=== PATIENT | female | born 1970 | race Caucasian/White ===

== ENCOUNTER → 2023-04-15 15:08 | Outpatient (REF) | payer OTHER, SELFPAY | LOC: RAD 15:08 | PROVIDERS: ATTENDING PHYSICIAN Physician Assistant Medical; FAMILY PHYSICIAN Nurse Practitioner Adult Health | DX: R06.2 Wheezing (principal); R06.02 Shortness of breath | CPT/HCPCS: 71046 ==

== ENCOUNTER → 2023-05-04 13:48 | Outpatient (REF) | payer OTHER, SELFPAY | LOC: RAD 13:48 | PROVIDERS: ATTENDING PHYSICIAN Registered Nurse | DX: J45.51 Severe persistent asthma with (acute) exacerbation (principal); R50.9 Fever, unspecified | CPT/HCPCS: 71046 ==

== ENCOUNTER 2023-05-06 19:57 | Inpatient (IN) | payer OTHER, SELFPAY ==
[2023-05-06 15:12] VITALS: BP 144/93
[2023-05-06 15:48] LABS: % Basophils 0.2 % (0-2); % Immature Granulocytes 1.2 % (0-0.5); % Lymphocytes 2.7 % (20.5-51.1); % Monocytes 5.1 % (1.7-9.3); % Neutrophils 90.8 % (42.2-75.2); Absolute Immature Granulocytes 0.2 10^3/uL (0-0.05); Absolute Lymphocytes 0.5 10^3/uL (1.2-3.4); Hematocrit 35.6 % (37.0-47.0); Hemoglobin 12.1 g/dL (12.0-16.0); Mean Corpuscular Hgb 30.3 pg (27.0-31.0); Mean Corpuscular Volume 89.2 fL (81.0-99.0); Mean Platelet Volume 8.8 fL (7.4-10.4); Nucleated Red Blood Cells % 0 %; Platelet Count 405 10^3/uL (130-400); Red Blood Cell Count 3.99 10^6/uL (4.20-5.40); Red Cell Dist. Width 11.9 % (11.5-14.5); White Blood Cell Count 19.8 10^3/uL (4.8-10.8)
[2023-05-06 15:59] LABS: Blood Urea Nitrogen 10 mg/dl (7-17); Calcium 9.2 mg/dl (8.4-10.2); Carbon Dioxide 24 mmol/L (22-30); Chloride 96 mmol/L (98-107); Glucose 125 mg/dl (70-99); Potassium 4.9 mmol/L (3.5-5.1); Sodium 129 mmol/L (135-145); eGFR > 60.00
[2023-05-06 17:46] VITALS: BMI 40.8
[2023-05-06 17:49] VITALS: BP 148/94
--- NOTE | 2023-05-06 17:59 | ED.GENMED ---
History of Present Illness
General
Chief Complaint: Cold/Flu/URI Symptoms
Source: patient
Exam Limitations: none
Time Seen by Provider: 05/06/23 17:24
Travel History
Have you had any contact with someone who has COVID-19?: No
Do you have any symptoms of coronavirus? Fever > 100 degrees, chills, cough, shortness of breath, sore throat, loss of taste or smell, muscle aches, or headache?: Yes
Symptoms:: cough fever
History of Present Illness
History of Present Illness:
52-year-old female with history of asthma underlying autoimmune disease presents complaining of worsening illness. She has been intermittently sick over the past 2 to 3 weeks first had bronchitis was treated with a course of Levaquin and steroids
then was tested positive for influenza. She was better after influenza treatment and Tamiflu but starting 3 days ago, she developed more of a cough fever chills. She had an x-ray performed 2 days ago which demonstrated pneumonia. She notes a
purulent sputum with occasional bloody sputum. No vomiting. She notes a temperature this morning of 101.2. She has been on prednisone and Levaquin for 3 days. She states her breathing is getting worse as well. No recent travel or surgery
Past History
Past History
ED Past Medical History: Asthma and Other (Migraines, colitis, Crohn's, fibromyalgia, mixed connective tissue disease)
ED Past Surgical History: Appendectomy, and Tonsilectomy
Social History
Tobacco: Non-smoker
Alcohol: None
Drug: None
Personal:
Living: with family
Employment: Employed
Family History
Family History: Hypertension
Phy Exam
Physical Exam
Physical Exam:
General: Well-appearing female slight increased work of breathing
HEENT: Normocephalic atraumatic neck is supple
Heart: Regular rate and rhythm no murmurs
Lungs: Expiratory wheeze bilaterally. Subtle rales on the right side
Abdomen soft nontender nondistended no guarding rebound normal bowel sounds
Extremities: No cyanosis or edema
Skin: Warm no rash or lesions
Course
Orders/Labs/Results
Orders:
Orders
05/06/23 15:18
Electrocardiogram (*1) Urgent
Reason for Study: Chest Pain
EKG- Treatment ONCE
05/06/23 15:32
BMP [Basic Metabolic Panel] Urgent
Complete Blood Count/With Diff Urgent
05/06/23 17:40
0.9% Sodium Chloride 500 ml [Nss] 500 ml IV BOLUS
Ipratropium/Albuterol Sulfate [Duoneb] 3 ml INH R NOW STA
05/06/23 17:41
CR Chest - 2 Views Urgent
Comment:
Reason For Exam: fever, cough
05/06/23 17:56
COVID-19 Antigen Urgent
Source: Nasal Swab
05/06/23 19:04
Cefepime HCl [Maxipime] 2,000 mg IV NOW STA
Vancomycin 1500 mg IVPB NOW Vancomycin [Vancocin] 1,500 mg 0.9% Sodium Chloride [Nss] 20 ml 0.9% Sodium Chloride 250 ml [Nss] 250 ml IV NOW
Abnormal Lab Results
05/06/23
15:32
WBC 19.8 H 10^3/uL
(4.8-10.8)
RBC 3.99 L 10^6/uL
(4.20-5.40)
Hct 35.6 L %
(37.0-47.0)
Plt Count 405 H 10^3/uL
(130-400)
Abs Immat Gran (auto) 0.2 H 10^3/uL
(0-0.05)
Absolute Neuts (auto) 18.0 H 10^3/uL
(1.4-6.5)
Absolute Lymphs (auto) 0.5 L 10^3/uL
(1.2-3.4)
Absolute Monos (auto) 1.0 H 10^3/uL
(0.1-0.6)
Immature Gran % 1.2 H %
(0-0.5)
Neutrophils % 90.8 H %
(42.2-75.2)
Lymphocytes % 2.7 L %
(20.5-51.1)
Sodium 129 L mmol/L
(135-145)
Chloride 96 L mmol/L
(98-107)
Glucose 125 H mg/dl
(70-99)
05/06/23 15:32
05/06/23 15:32
Vital Signs
Initial and Last Documented VS:
Initial Vital Signs
Temp Pulse Resp BP Pulse Ox
99.2 F 91 16 144/93 97
05/06/23 15:12 05/06/23 15:12 05/06/23 15:12 05/06/23 15:12 05/06/23 15:12
Last Documented Vital Signs
Temp Pulse Resp BP Pulse Ox
99.2 F 91 16 138/92 95
05/06/23 15:12 05/06/23 15:12 05/06/23 15:12 05/06/23 18:00 05/06/23 18:15
MDM/Problems Addressed
Differential Diagnosis Includes:
Worsening symptoms with recent diagnosis of pneumonia. White blood cell count through triage 19.8 however patient has been on prednisone for 3 days. She notes a fever. Will recheck x-ray. Test for COVID. Hydrate. Patient is immunocompromise
from treatment from autoimmune illness. Not getting better with outpatient therapy. May require admission to hospital
*Critical Care Note
Total Time (30-74mins, 75-104mins- exclusive of procedures): Not Applicable
Update Note
Update Note:
Chest x-ray today demonstrates progressively worsening right upper lobe pneumonia and new left-sided perihilar pneumonia. Patient feeling outpatient treatment with Levaquin and steroid. Will start on vancomycin and cefepime. Will admit to hospital
ED Attending Note
-
Portions of this chart may have been created with voice recognition software.� Occasional wrong word or��sound alike� substitutions may have occurred due to the inherent limitations of voice recognition software.
Discharge Plan
Departure
Patient Disposition: Admit
Date of Disposition: 05/06/23
Time of Disposition: 19:05
Admit to: Telemetry
Presentation/result/management discussed w/ accepting MD/DO: Hospitalist
Discharge Problem:
Pneumonia
Prescriptions:
No Action
prochlorperazine maleate 10 MG tablet
10 mg PO Q8HPRN PRN (Reason: Migraine, nausea) Qty: 12 0RF
multivitamin 1 EACH tablet
1 ea PO DAILY
acetaminophen [Tylenol Extra Strength] 500 MG tablet
1,000 mg PO PRN PRN (Reason: pain)
albuterol sulfate 1 PUFF HFA aerosol inhaler
2 puff inhalation PRN PRN (Reason: shortness of breath)
ropinirole 0.5 mg Tablet
1 mg PO HS
duloxetine [Cymbalta] 60 mg Capsule,Delayed Release(Dr/Ec)
90 mg PO DAILY
pantoprazole [Protonix] 40 mg Tablet,Delayed Release (Dr/Ec)
40 mg PO DAILY
Trelegy Ellipta 200-62.5-25 mcg Blister With Device
1 inh INHALATION DAILY
Gemtesa 75 mg Tablet
75 mg PO DAILY
baclofen 10 mg Tablet
10 mg PO TID
hydrochlorothiazide 12.5 mg Tablet
12.5 mg PO DAILY
Stelara 130 mg/26 mL Solution
130 mg IV .[id number]
Ubrelvy 100 mg Tablet
100 mg PO ONCE PRN (Reason: migraines)
oxycodone-acetaminophen 5-325 mg Tablet
1 tab PO Q4HPRN PRN (Reason: severe pain) Qty: 10 0RF
Interventions
Interventions:
*Risk Screen - Suicide Last Done: 05/06/23 15:12
*General Assessment Last Done: 05/06/23 17:46
*Neglect/Abuse Screening Last Done: 05/06/23 17:46
ED- Fall Risk Assessment Last Done: 05/06/23 17:46
*ED COVID-19 Vaccine History Last Done: 05/06/23 15:12
ED- Pulmonary Assessment Last Done: 05/06/23 17:46
[2023-05-06 18:00] VITALS: BP 138/92
[2023-05-06] MEDS: DUONEB 3 ML INH (18:08)
[2023-05-06] MEDS: NSS 500 IV (18:08)
[2023-05-06 18:50] LABS: COVID-19 Antigen Negative (Negative)
--- NOTE | 2023-05-06 19:52 | HPS.HSE ---
Family Physician
-
Family Physician: MARÍA Helton
Chief Complaint
-
cough, hemotypsis
History of Present Illness
52-year-old female past medical history of asthma, migraines, Crohn's disease, fibromyalgia, mixed connective tissue disease, immunodeficiency,, mitochondrial genetic DNAse disorder, endometriosis, partial right kidney nephrectomy due to kidney mass
presenting with URI symptoms. Presenting with persistent URI symptoms. Patient states that over the past 6 months she has developed frequent upper respiratory infections and has been treated with antibiotics and steroids a few times.
2 weeks ago she developed URI symptoms with cough and congestion and was treated with a course of Levaquin. Symptoms improved and then got worse approximately week ago. Her had also developed URI symptoms the patient tested herself and was
positive for influenza. She was treated with Tamiflu and a course of steroids which she has completed.
Her symptoms persisted and she was started on a second course of Levaquin 3 days ago and another course of prednisone. She had an x-ray 2 days ago which showed pneumonia.
Over the past few days she continues to have cough that is productive with mucus as well as blood. She has shortness of breath. She has a sore throat as well as chest pain associated breathing and cough. She denies fevers and chills including
fever of 101.2 this morning. She did have an episode of vomiting but otherwise denies any further nausea or vomiting. She denies any abdominal pain or diarrhea.
Patient follows pulmonology/allergy Dr. Tati Pate who apparently checked her immunoglobulin levels previously and were found to be low. A lung biopsy was also considered due to patient's frequent infections.
Patient has a mitochondrial genetic disease due to which she feels periodic fatigue.
Medical History
Past Medical History
Past Medical History: Reports Other (asthma, migraines, Crohn's disease, fibromyalgia, mixed connective tissue disease, immunodeficiency,, mitochondrial genetic DNAse disorder, endometriosis, partial right kidney nephrectomy due to kidney mass)
Past Surgical History: Reports Other (Appendectomy, and Tonsilectomy)
Social History
Tobacco: Non-smoker
Alcohol: None
Drug: None
Family History
Family History: Not pertinent
Allergies / Home Medications
Allergies reflects when Allergies were last updated in [facility].
Home Medications with original date entered in [facility]
Allergy/Medication List:
Allergies
Allergy/AdvReac Type Severity Reaction Status Date / Time
gabapentin Allergy migraine Verified 01/02/22 06:51
flairs
methotrexate [Methotrexate] Allergy nausea, Verified 01/02/22 06:51
rash
pollen extracts Allergy runny nose Verified 01/02/22 16:05
Sulfa (Sulfonamide Allergy Rash, Verified 01/02/22 16:05
Antibiotics) itching
sulfasalazine Allergy rash, Verified 01/02/22 16:05
itching
Home Medications
acetaminophen 500 mg tablet (Tylenol Extra Strength) 1,000 mg PO Q6HPRN PRN mild pain/fever 09/23/19
albuterol sulfate 90 mcg/actuation aerosol inhaler 2 puff inhalation R Q4HPRN PRN shortness of breath 09/23/19
multivitamin 1 ea PO DAILY Supplement 09/23/19
baclofen 10 mg tablet 10 mg PO TID PRN muscle spasms 01/01/22
duloxetine 60 mg capsule,delayed release (Cymbalta) 60 mg PO DAILY Pain 01/01/22
fluticasone fur. 200 mcg-umeclid 62.5 mcg-vilant 25 mcg inhalat.powder (Trelegy Ellipta) 1 inh inhalation R DAILY Lung/breathing issues 01/01/22
pantoprazole 40 mg tablet,delayed release (Protonix) 40 mg PO DAILY Gastrointestinal issue 01/01/22
ropinirole 0.5 mg tablet 1 mg PO HS Neurological Condition 01/01/22
ubrogepant 100 mg tablet (Ubrelvy) 100 mg PO ONCE PRN migraines 01/01/22
ustekinumab 130 mg/26 mL intravenous solution (Stelara) 130 mg IV .[id number] Autoimmune disorder 01/01/22
albuterol sulfate 2.5 mg/3 mL (0.083 %) solution for nebulization 2.5 mg inhalation R Q4 PRN sob/wheezing 05/06/23
cevimeline 30 mg capsule 30 mg PO TID 05/06/23
gabapentin 300 mg capsule 300 mg PO BID@0800,1400 05/06/23
gabapentin 300 mg capsule 600 mg PO HS 05/06/23
levofloxacin 750 mg tablet 750 mg PO DAILY 05/06/23
montelukast 10 mg tablet 10 mg PO HS 05/06/23
prednisone 10 mg tablet 10 mg PO .TAPER 05/06/23
tezepelumab-ekko 210 mg/1.91 mL (110 mg/mL) subcutaneous syringe (Tezspire) 0 mg SC MONTHLY 05/06/23
Review of Systems
-
History Source: Patient
A 12 point ROS was completed and negative except as noted: Yes
Constitutional: Reports No Symptoms
EENT: Reports No Symptoms
Respiratory: Reports See HPI
Cardiac: Reports See HPI
Abdomen/GI: Reports No Symptoms
: Reports No Symptoms
Musculoskeletal: Reports No Symptoms
Skin: Reports No Symptoms
Neurological: Reports No Symptoms
Endocrine: Reports No Symptoms
Hematologic/Lymphatic: Reports No Symptoms
Psych: Reports No Symptoms
Physical Exam
Vital Signs
Vital Signs
Temp Pulse Resp BP Pulse Ox
99.2 F 91 16 138/92 95
05/06/23 15:12 05/06/23 15:12 05/06/23 15:12 05/06/23 18:00 05/06/23 18:15
Physical Exam
General: Well Developed, Well Nourished and No Apparent Distress
HEENT: NormoCephalic, Moist mucous membranes and Atraumatic
Respiratory: Wheezes
Cardiac: S1/S2 and Regular Rhythm; No Murmur or Rub
GI: Soft, Non Tender, Non Distended and Normal Bowel Sounds; No Organomegaly
Rectal: Deferred by Provider
Musculoskeletal: No Clubbing, No Cyanosis and No Edema
Skin: No Rash
Neuro: Nonfocal/grossly intact
Laboratory Results
-
05/06/23 15:32
05/06/23 15:32
Data Reviewed
-
Lab Data: Labs Reviewed by me
Old Records: Reviewed
Impression/Plan
-
IMPRESSION:
PLAN:
# Sepsis (fever at home, leukocytosis, tachycardia) secondary to stable right upper lobe pneumonia, continue left perihilar pneumonia concerning for post influenza bacterial infection
# Hemoptysis secondary to bacterial pneumonia
# Recent influenza infection
-Wheezing on examination
-IV fluids
-Check sputum culture
-Check blood cultures
-Check MRSA, Legionella, strep antigen
-Vancomycin/Zosyn
-Dexamethasone 4 mg every 12
-DuoNebs every 6 hours
-Quantify hemoptysis
-Pulmonology consult
Asthma
-Continue Trelegy
-Continue montelukast
History of immunodeficiency
-Likely cause of frequent infections
History of migraines
-Continue Ubrelvy as needed
Crohn's disease
-Patient on Stelara
Fibromyalgia
-Continue duloxetine,
Mixed connective tissue disease
-Continue gabapentin, baclofen
Restless leg syndrome
-Continue ropinirole, gabapentin
Mitochondrial genetic DNAse disorder
Endometriosis
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
GERD
Full code
DVT prophylaxis�heparin
Regular diet
[2023-05-06 20:11] VITALS: BP 144/88
[2023-05-06] MEDS: MAXIPIME 2000 MG IV (20:28)
[2023-05-06 22:10] VITALS: BP 159/94; BMI 40.1
--- NOTE | 2023-05-06 22:26 | PHA.VAN.IN ---
Assessment
- Assessment
Renal Function: Appears similar to baseline (01/03/22 BASELINE SCR: 0.8)
Concomitant Antimicrobials: ZOSYN
- Previous Dosing Experience
Previous Regimen: NONE
AUC Dosing Plan
- Dosing Variables
Dosing Weight (kg): 104.5
Dosing CrCl (ml/min): 86
Vd coefficient (L/kg): 0.5
- Empiric Dosing
Initial / Loading Dose: 1500MG
Maintenance Regimen: 1GM IV Q12H
Estimated AUC (mcg*h/mL): 524
Estimated Peak (mcg*h/mL): 32
Estimated Trough (mcg/ml): 13.9
Estimated Half Life (H): 9.1
Pharmacokinetics Vancomycin I
- -
Patient Age: 52
Patient Sex: Female
Vancomycin Day #: 1
Indication: Pulmonary/Respiratory (SEPSIS)
Requesting Provider: SONIA
Pertinent Antimicrobial Allergies:
Allergies
Sulfa (Sulfonamide Antibiotics) Allergy (Verified 01/02/22 16:05)
Rash, itching
sulfasalazine Allergy (Verified 01/02/22 16:05)
rash, itching
Height / Weight:
Height 5 ft 3 in
Actual Weight 102.569 kg
Pertinent Past Medical History: CHROHN'S,FIBRO, IMMUNOSUPRESSED, PARTIAL [R] KIDNEY
- Vital Signs / Lab Results
Temp Pulse Resp BP Pulse Ox
99.6 F 86 20 159/94 97
05/06/23 22:10 05/06/23 22:10 05/06/23 22:10 05/06/23 22:10 05/06/23 22:10
Lab Results - Hematology
05/06/23
15:32
WBC 19.8 H
Lab Results - Chemistry
05/06/23
15:32
BUN 10
Creatinine 0.9
[2023-05-06] MEDS: NSS 1000 IV (22:30)
[2023-05-06] MEDS: VANCOCIN 300 ML IV (22:30)
[2023-05-06] MEDS: VANCOCIN 300 MG IV (22:30)
[2023-05-06] MEDS: HEPARIN 5000 UNITS SC (22:31)
[2023-05-06] MEDS: NEURONTIN 600 MG PO (22:31)
[2023-05-06] MEDS: DECADRON 4 MG IV (22:31)
[2023-05-06] MEDS: SINGULAIR 10 MG PO (22:34)
[2023-05-06] MEDS: TYLENOL 650 MG PO (22:42)
[2023-05-06] MEDS: REQUIP 1 MG PO (23:10)
[2023-05-06] MEDS: TESSALON PERLES 100 MG PO (23:10)
[2023-05-07] MEDS: ZOSYN 50 IV ×4 (02:14→20:58)
[2023-05-07] MEDS: VANCOCIN 200 IV (05:36)
[2023-05-07] MEDS: VENTOLIN NEBULES 2.5 MG INH ×3 (05:54→13:19)
[2023-05-07 06:19] LABS: % Basophils 0.2 % (0-2); % Immature Granulocytes 1.1 % (0-0.5); % Lymphocytes 3.8 % (20.5-51.1); % Monocytes 5.3 % (1.7-9.3); % Neutrophils 89.6 % (42.2-75.2); Absolute Immature Granulocytes 0.2 10^3/uL (0-0.05); Absolute Lymphocytes 0.6 10^3/uL (1.2-3.4); Absolute Monocytes 0.9 10^3/uL (0.1-0.6); Hematocrit 35.3 % (37.0-47.0); Mean Corpuscular Hgb 30.1 pg (27.0-31.0); Mean Corpuscular Volume 88.5 fL (81.0-99.0); Mean Platelet Volume 8.8 fL (7.4-10.4); Nucleated Red Blood Cells % 0 %; Platelet Count 446 10^3/uL (130-400); Red Blood Cell Count 3.99 10^6/uL (4.20-5.40); White Blood Cell Count 16.7 10^3/uL (4.8-10.8)
[2023-05-07] MEDS: TYLENOL 650 MG PO ×2 (06:43→21:57)
[2023-05-07 06:46] LABS: ALT (SGPT) 20 U/L (0-35); AST (SGOT) 20 U/L (14-36); Albumin 3.3 g/dl (3.5-5.0); Alkaline Phosphatase 88 U/L (38-126); Blood Urea Nitrogen 11 mg/dl (7-17); Calcium 9.2 mg/dl (8.4-10.2); Carbon Dioxide 22 mmol/L (22-30); Chloride 102 mmol/L (98-107); Estimated Creatinine Clearance 110 ml/min; Glucose 121 mg/dl (70-99); Potassium 4.4 mmol/L (3.5-5.1); Sodium 134 mmol/L (135-145); Total Bilirubin 0.5 mg/dl (0.2-1.3); Total Protein 6.1 g/dl (6.3-8.2); eGFR > 60.00
--- NOTE | 2023-05-07 07:15 | PTCARENOTE ---
Patient arrived on unit @2150 via stretcher from ED, ambulate from stretcher to bed. Patient AAOx3 with occasional non productive cough, CHANCELLOR made aware, prn order for briana sanchez received. Patient's skin assessment completed, oriented to unit,
call mejias within reach.
[2023-05-07 07:30] VITALS: BP 142/88
[2023-05-07] MEDS: SYMBICORT 160/4.5 MCG INHALER 2 PUFF INH (08:00)
[2023-05-07] MEDS: SPIRIVA RESPIMAT 2.5 MCG 2 PUFF INH (08:00)
[2023-05-07] MEDS: PROTONIX 40 MG PO (08:19)
[2023-05-07] MEDS: NEURONTIN 300 MG PO ×2 (08:19→13:02)
[2023-05-07] MEDS: HEPARIN 5000 UNITS SC ×2 (08:19→20:58)
[2023-05-07] MEDS: CYMBALTA DELAYED RELEASE 60 MG PO (08:19)
[2023-05-07] MEDS: THERAGRAN 1 TABLET PO (08:20)
--- NOTE | 2023-05-07 08:59 | PHA.VAN.FU ---
Vancomycin Assessment / Plan
- Assessment
Renal Function: Stable
WBC's are: Trending Down
In the past 24 hrs, patient has been: Afebrile
Concomitant Antimicrobials: piperacillin/tazobactam
- Dosing Plan
Adjust Regimen to: Vanc 1250mg Q12H starting at 1800
New Regimen Predicts: AUC (453), Peak (29.6), Trough (10.8)
- Monitoring Plan
No level(s) ordered at this time: consider levels in next few days
- Follow Up
Pharmacy will continue to follow.
Vancomycin Follow UP
- -
Patient Age: 52
Patient Sex: Female
Vancomycin Day #: 2
Indication: Pulmonary/Respiratory
Requesting Provider: Dr. Pinto
Pertinent Antimicrobial Allergies:
Sulfa (Sulfonamide Antibiotics) - Rash, itching
sulfasalazine - rash, itching
Height / Weight:
Height 5 ft 3 in
Actual Weight 102.569 kg
Pertinent Past Medical History: BMI ~40, recent flu
- Vital Signs / Lab Results
Temp Pulse Resp BP Pulse Ox
98.3 F 71 16 142/88 98
05/07/23 07:30 05/07/23 08:08 05/07/23 08:08 05/07/23 07:30 05/07/23 08:08
Lab Results - Hematology
05/06/23 05/07/23
15:32 05:41
WBC 19.8 H 16.7 H
Lab Results - Chemistry
05/06/23 05/07/23
15:32 05:41
BUN 10 11
Creatinine 0.9 0.7
Estimated Creat Clear 110
Albumin 3.3 L
[2023-05-07] MEDS: DECADRON 4 MG IV ×2 (09:19→21:56)
[2023-05-07] MEDS: NSS 1000 IV (11:11)
[2023-05-07] MEDS: TESSALON PERLES 100 MG PO (11:16)
--- NOTE | 2023-05-07 12:19 | W.PN.HOSP.TC ---
Addendum entered and electronically signed by Cecilia Carballo MD 05/07/23 12:28:
Also, continue heparin subcu despite having mild hemoptysis which is improving,
Other impression is mild protein caloric malnutrition as albumin 3.3.
Encourage oral nutrition and
Original Note:
Today's Communication/Plan
-
Discussed with the patient and the daughter
Assessment / Plan
Assessment / Plan
Physical exam:
General: Awake, alert and oriented x3, not in distress and holds appropriate conversation.
HEENT: No active discharge, ecchymosis or bruising, moist lips, tongue and mucous membrane.
Eyes: No discharge or red conjunctiva, no nystagmus, pupils are reactive and equal
Neck:Supple, no JVD no bruit no goiter.
Respiratory: Normal AP contour and diameter, normal chest wall movement, normal respiratory effort, no respiratory distress,
Lungs: Good air entry bilaterally, bilateral wheezing and rhonchi, no rales or crackles
Heart: S1, S2 regular, normal rate, no added sound.
Gastrointestinal: Positive bowel sounds, soft, nontender, no guarding or rigidity or organomegaly
Musculoskeletal: , no chest wall abnormality or tenderness. All joints and extremities have good range of motion, no muscle tenderness or any joint swelling or tenderness.
Extremities: No pitting edema, good peripheral pulses, good range of motion
Skin: Warm and dry, no ulceration, normal color.
Neurological: Awake, alert and oriented x3, no facial droop, moves extremities speech clear and comprehensive, good muscle tone,
Psychiatric: Normal mood, normal thought and judgment, normal affect,
Assessment and plan:
Acute sepsis (fever at home, leukocytosis, tachycardia) secondary to stable right upper lobe pneumonia, continue left perihilar pneumonia concerning for post influenza bacterial infection, mildly improving
With failed outpatient treatment treated with Levaquin and steroids and outpatient by primary care physician according to the patient
-IV fluids
-Sputum and blood cultures pending
She has Tessalon Perles as needed I will add Mucinex scheduled
-Check MRSA, Legionella, strep antigen
-Vancomycin/Zosyn
-Dexamethasone 4 mg every 12
-DuoNebs every 6 hours
-Recheck lab
-Pulmonology consult\\
Acute asthma exacerbation: Likely by pneumonia
Management as above.
Post influenza: Treated as an outpatient
Asthma
-Continue Trelegy
-Continue montelukast
History of immunodeficiency
-Likely cause of frequent infections
History of migraines
-Continue Ubrelvy as needed
Crohn's disease
-Patient on Stelara
Fibromyalgia
-Continue duloxetine,
Mixed connective tissue disease
-Continue gabapentin, baclofen
Restless leg syndrome
-Continue ropinirole, gabapentin
Mitochondrial genetic DNAse disorder
Endometriosis
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
GERD
All discussed with the patient and the daughter and expressed understanding
Discussed with the nurse
Full code
DVT prophylaxis�heparin
Regular diet
Anticipated Discharge: 24 - 48 hours
Subjective/Interval History
-
Date of Service: May 07, 2023
Seen and examined, awake and alert, daughter at the bedside, she feels some improvement but she still feeling tired, lousy and lethargic-chills, poor appetite, swelling and cough and some mild hemoptysis but overall better than before, have
reproducible chest pain when she takes a deep breath or cough. No urinary or GI symptoms.
She has audible wheezing.
Objective Data
-
Labs:
Laboratory Results
05/07/23
05:41
WBC 16.7 H
Hgb 12.0
Hct 35.3 L
Plt Count 446 H
Sodium 134 L
Potassium 4.4
Chloride 102
Carbon Dioxide 22
BUN 11
Creatinine 0.7
Glucose 121 H
Calcium 9.2
Total Bilirubin 0.5
AST 20
ALT 20
Alkaline Phosphatase 88
Vital Signs:
Vital Signs
Temp Pulse Resp BP Pulse Ox
98.3 F 71 16 142/88 98
05/07/23 07:30 05/07/23 08:08 05/07/23 08:08 05/07/23 07:30 05/07/23 10:48
I&O
05/06/23 05/07/23 05/08/23
07:59 07:59 07:59
Intake Total 2000
Balance 2000
Review of Systems
-
All other systems: Reviewed and negative
Data Reviewed
-
Diagnostic Radiology: Image personally visualized and interpreted, Discussed with Physician, Discussed with Nurse, Discussed with Patient and Discussed with Family
Labs: Labs Reviewed by me, Discussed with Nurse, Discussed with Patient and Discussed with Family
Old Records: Reviewed
[2023-05-07] MEDS: MUCINEX 1200 MG PO ×2 (13:02→20:58)
[2023-05-07] MEDS: NON-FORMULARY ITEM 30 MG PO ×2 (15:21→21:56)
[2023-05-07 15:50] VITALS: BP 143/77
--- NOTE | 2023-05-07 16:09 | CON.PUL ---
Consultation
Consultation Request
Date/Time Consultation Requested: 05/07/2023
Date/Time Consultation Performed: 05/07/2023
Requesting Provider: Dr. Carballo
Performing Provider: Dr. Doe Diamond
Reason for Consultation: Pneumonia
Medical History
-
History of Present Illness:
52-year-old woman with past medical history significant for asthma, anxiety, migraines, Crohn's disease, fibromyalgia, mixed connective tissue disease, immunodeficiency, mitochondrial genetic DNA disorder, endometriosis, partial right kidney
nephrectomy due to kidney mass now presenting with upper respiratory infection symptoms.
Patient states that over the last 6 months has developed frequent respiratory infections and have been treated with antibiotics and steroids multiple times.
About 2 weeks ago she developed an upper respiratory infection she was treated with a course of Levaquin.
For the last week symptoms have worsened. also developed symptoms. He tested positive for influenza.
She received Tamiflu and a course of steroids. She already completed those.
Due to persistent, worsening symptoms received second course of antibiotics. Chest x-ray 2 days ago showed an infiltrate suggestive of pneumonia.
Complains of shortness of breath, sore throat, fevers and chills also were documented.
Denies any nausea or vomiting at the moment.
Denies any rash. Denies diarrhea.-
She has a yard laborer: Dr. Pate she was told that her immunoglobulin levels were low. They discussed a possible lung biopsy due to ongoing abnormal x-ray.
Past Medical History
Past Medical History: Other (See assessment and plan section)
Social History
Tobacco: Non-smoker
Alcohol: None
Drug: None
Family History
Family History: Reviewed & Not Pertinent
Allergies / Home Medications
Allergies
Allergy/AdvReac Type Severity Reaction Status Date / Time
methotrexate [Methotrexate] Allergy nausea, Verified 01/02/22 06:51
rash
pollen extracts Allergy runny nose Verified 01/02/22 16:05
Sulfa (Sulfonamide Allergy Rash, Verified 01/02/22 16:05
Antibiotics) itching
sulfasalazine Allergy rash, Verified 01/02/22 16:05
itching
Home Medications
Medication Instructions Recorded Confirmed Last Taken Type
acetaminophen 500 mg tablet 1,000 mg PO Q6HPRN PRN mild 09/23/19 05/06/23 01/01/22 07:00 History
(Tylenol Extra Strength) pain/fever
albuterol sulfate 90 mcg/actuation 2 puff inhalation R Q4HPRN PRN 09/23/19 05/06/23 Unknown History
aerosol inhaler shortness of breath
multivitamin 1 ea PO DAILY Supplement 09/23/19 05/06/23 05/06/23 History
baclofen 10 mg tablet 10 mg PO TID PRN muscle spasms 01/01/22 05/06/23 01/01/22 21:00 History
duloxetine 60 mg capsule,delayed 60 mg PO DAILY Pain 01/01/22 05/06/23 05/06/23 History
release (Cymbalta)
fluticasone fur. 200 mcg-umeclid 1 inh inhalation R DAILY 01/01/22 05/06/23 05/06/23 History
62.5 mcg-vilant 25 mcg Lung/breathing issues
inhalat.powder (Trelegy Ellipta)
pantoprazole 40 mg tablet,delayed 40 mg PO DAILY Gastrointestinal 01/01/22 05/06/23 05/06/23 History
release (Protonix) issue
ropinirole 0.5 mg tablet 1 mg PO HS Neurological Condition 01/01/22 05/06/23 05/05/23 History
ubrogepant 100 mg tablet (Ubrelvy) 100 mg PO ONCE PRN migraines 01/01/22 05/06/23 Unknown History
ustekinumab 130 mg/26 mL 130 mg IV .[id number] Autoimmune 01/01/22 05/06/23 11 Weeks Ago History
intravenous solution (Stelara) disorder ~02/18/23
albuterol sulfate 2.5 mg/3 mL 2.5 mg inhalation R Q4 PRN 05/06/23 05/06/23 Unknown History
(0.083 %) solution for nebulization sob/wheezing
cevimeline 30 mg capsule 30 mg PO TID dry mouth 05/06/23 05/06/23 05/06/23 History
gabapentin 300 mg capsule 300 mg PO BID@0800,1400 05/06/23 05/06/23 05/06/23 History
Neurological Condition
gabapentin 300 mg capsule 600 mg PO HS Neurological Condition 05/06/23 05/06/23 05/05/23 History
levofloxacin 750 mg tablet 750 mg PO DAILY Infection 05/06/23 05/06/23 05/06/23 History
montelukast 10 mg tablet 10 mg PO HS Allergies 05/06/23 05/06/23 05/05/23 History
prednisone 10 mg tablet 10 mg PO .TAPER Anti-Inflammatory 05/06/23 05/06/23 05/06/23 History
40 mg
tezepelumab-ekko 210 mg/1.91 mL 0 mg SC MONTHLY asthma 05/06/23 05/06/23 Unknown History
(110 mg/mL) subcutaneous syringe
(Tezspire)
Review of Systems
-
History Source: Patient
All other systems: Negative unless noted
Vitals / Labs / Diagnostic Testing
Vital Signs
Temp Pulse Resp BP Pulse Ox
98.3 F 90 16 143/77 97
05/07/23 15:50 05/07/23 15:50 05/07/23 15:50 05/07/23 15:50 05/07/23 15:50
Lab Data
05/07/23 05:41
05/07/23 05:41
Microbiology
05/07/23 08:38 Sputum Gram Stain - Preliminary
Diagnostic Testing:
Physical Exam
-
HEENT: Normocephalic
Cardiovascular: S1/S2
Respiratory: Wheeze (Bilateral expiratory wheezing throughout.) and Non-Labored Respirations
GI: Soft and Non Distended
Neurology: Awake, Alert, Oriented, AO x 3 and No Motor Deficits
Skin: Warm
General: Respiratory Distress (n)
Assessment
-
Pneumonia: Likely bacterial. Possibly post influenza
Chest x-ray:05/06/2023 Right upper lobe infiltrate/left perihilar infiltrate new compared to 04/15/2023
Status post Levaquin at least twice within the last few weeks.
Completed a course of Tamiflu.
MRSA screen pending
Leukocytosis/fever
Hemoptysis secondary to above
Acute asthma exacerbation triggered by above-bronchospastic on exam
-
Conditions present prior admission:
History of asthma on Trelegy-follows up with Dr. Pate
CT of the sinuses 10/31/2022: Showed clear paranasal sinuses.
History of immunodeficiency with frequent respiratory infections
History of migraines
Fibromyalgia
Chronic disease
Mixed connective tissue disease
Restless leg syndrome
Endometriosis
Mitochondrial DNA disorder with chronic fatigue
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
GERD
Plan recommendations:
Agree with current therapy with broad-spectrum antibiotics for bacterial pneumonia on immunosuppressed.
Has completed multiple courses of Levaquin recently.
Continue Zosyn/vancomycin
Sputum culture
Secretion clearance interventions
-
Depending on clinical situation/response to antibiotics a CT of the chest will be necessary.. Hold for now.
No indication for bronchoscopy at this point, we will determine based on response.
Her infiltrate is new compared to early April based on chest x-ray that was reviewed by me.
-
Acute asthma exacerbation: Continue IV corticosteroids.
Patient was placed on inhalers Symbicort/tiotropium instead of Trelegy.
Patient states that she was started on Tezspire in the outpatient setting by Dr. Pate.
Also reports possible bronchiectasis. No CAT scans available for review. She has been referred to a yard laborer at [facility]. She also sees a body painter and a neurologist to evaluate her multiple medical problems.
Will transition to nebulized therapy as the patient is coughing and actively bronchospastic. Hold inhalers.
-
Per patient report immunoglobulin deficiency. May need to start augmentation in the outpatient setting.
-
Of note, patient was seen by Dr. Murphy in our office back in 2017. Has not follow-up since. Has been following with Dr. Pate from allergies and asthma.
-
DVT prophylaxis with subcu heparin.
-
Ongoing follow-up with Dr. Pate after discharge.
[2023-05-07] MEDS: VANCOCIN 275 MG IV (17:04)
--- NOTE | 2023-05-07 18:00 | CM ---
met with patient at bedside.patient lives with her spouse and 2 dghts in house with 1 stepto enter,her bed and bath is on the second level.she amb i and is I with her adl's.patient has hx of asthma,recent influenza,crohn's disease is adm with pna on
iv zosyn and iv vancol,duonebs,iv decadron.plan is dc home with no needs.
Plan is dc home with no needs.
[2023-05-07] MEDS: DUONEB 3 ML INH (20:14)
[2023-05-07] MEDS: PULMICORT 0.5 MG INH (20:14)
[2023-05-07] MEDS: NEURONTIN 600 MG PO (21:56)
[2023-05-07] MEDS: REQUIP 1 MG PO (21:57)
[2023-05-07] MEDS: SINGULAIR 10 MG PO (21:57)
[2023-05-08] MEDS: NSS 1000 IV (00:16)
[2023-05-08 00:17] VITALS: BP 144/76
[2023-05-08] MEDS: ZOSYN 50 IV ×2 (02:54→08:33)
[2023-05-08] MEDS: VANCOCIN 275 MG IV (05:23)
[2023-05-08 06:14] LABS: % Basophils 0.2 % (0-2); % Immature Granulocytes 3.4 % (0-0.5); % Lymphocytes 5.2 % (20.5-51.1); % Monocytes 5.3 % (1.7-9.3); % Neutrophils 85.9 % (42.2-75.2); Absolute Immature Granulocytes 0.7 10^3/uL (0-0.05); Hematocrit 34.9 % (37.0-47.0); Hemoglobin 11.8 g/dL (12.0-16.0); Mean Corp Hgb Conc. 33.8 g/dL (33.0-37.0); Mean Corpuscular Volume 88.8 fL (81.0-99.0); Mean Platelet Volume 8.8 fL (7.4-10.4); Nucleated Red Blood Cells % 0 %; Platelet Count 439 10^3/uL (130-400); Red Blood Cell Count 3.93 10^6/uL (4.20-5.40); Red Cell Dist. Width 11.9 % (11.5-14.5); White Blood Cell Count 19.8 10^3/uL (4.8-10.8)
[2023-05-08] MEDS: PULMICORT 0.5 MG INH (07:26)
[2023-05-08] MEDS: DUONEB 3 ML INH ×2 (07:26→11:30)
[2023-05-08] MEDS: NON-FORMULARY ITEM 30 MG PO (08:31)
[2023-05-08] MEDS: PROTONIX 40 MG PO (08:32)
[2023-05-08] MEDS: HEPARIN 5000 UNITS SC (08:32)
[2023-05-08] MEDS: MUCINEX 1200 MG PO (08:32)
[2023-05-08] MEDS: CYMBALTA DELAYED RELEASE 60 MG PO (08:32)
[2023-05-08] MEDS: THERAGRAN 1 TABLET PO (08:32)
[2023-05-08] MEDS: NEURONTIN 300 MG PO ×2 (08:32→13:36)
[2023-05-08] MEDS: TYLENOL 650 MG PO (08:41)
[2023-05-08 08:42] VITALS: BP 157/84
[2023-05-08] MEDS: DECADRON 4 MG IV (09:28)
[2023-05-08] MEDS: NSS IV (11:03)
--- NOTE | 2023-05-08 11:30 | PHA.VAN.FU ---
Vancomycin Assessment / Plan
- Assessment
Renal Function: Stable
WBC's are: Trending Up
In the past 24 hrs, patient has been: Afebrile
Concomitant Antimicrobials: piperacillin/tazobactam
- Dosing Plan
Continue: vancomycin 1250 mg q12h
Dosing Comments: pt recd 1500 mg 05/06 2230; 1 g 0536; 1250 mg q12h start 1800
- Monitoring Plan
Peak Level: 05/08/23 2100
Trough Level: 05/09/23 0530
- Follow Up
Pharmacy will continue to follow.
Vancomycin Follow UP
- -
Patient Age: 52
Patient Sex: Female
Vancomycin Day #: 3
Indication: Pulmonary/Respiratory
Requesting Provider: Dr. Pinto
Pertinent Antimicrobial Allergies:
Sulfa (Sulfonamide Antibiotics) - Rash, itching
sulfasalazine - rash, itching
Height / Weight:
Height 5 ft 3 in
Actual Weight 102.569 kg
Pertinent Past Medical History: BMI ~40, recent flu
- Vital Signs / Lab Results
Temp Pulse Resp BP Pulse Ox
97.8 F 92 16 157/84 96
05/08/23 08:42 05/08/23 08:42 05/08/23 08:42 05/08/23 08:42 05/08/23 08:42
Lab Results - Hematology
05/06/23 05/07/23 05/08/23
15:32 05:41 05:46
WBC 19.8 H 16.7 H 19.8 H
Lab Results - Chemistry
05/06/23 05/07/23
15:32 05:41
BUN 10 11
Creatinine 0.9 0.7
Estimated Creat Clear 110
Albumin 3.3 L
Microbiology Results
05/06/23 23:13 MRSA Screen - Final
Nose Staph aureus MRSA
05/06/23 20:28 Blood Culture - Preliminary
Blood/Venous No Growth in 24 hours- Final report to follow
05/06/23 20:14 Blood Culture - Preliminary
Blood/Venous No Growth in 24 hours- Final report to follow
05/07/23 08:38 Gram Stain - Preliminary
Sputum
--- NOTE | 2023-05-08 12:37 | W.DS.TRANS ---
DC Summary - Physician Underwriter
-
Discharge Instructions:
Discharge Diagnosis/Procedures Pneumonia
Diet Low Cholesterol,2 Gram Sodium
Activity No restrictions
Driving Restrictions As prior to admission
Instructions:
Stand-Alone Forms:
Changes to Home Medications: No
Discharge Medications:
DC Medications w/original date entered in [employer]
acetaminophen 500 mg tablet (Tylenol Extra Strength) 1,000 mg PO Q6HPRN PRN mild pain/fever 09/23/19
albuterol sulfate 90 mcg/actuation aerosol inhaler 2 puff inhalation R Q4HPRN PRN shortness of breath 09/23/19
multivitamin 1 ea PO DAILY Supplement 09/23/19
baclofen 10 mg tablet 10 mg PO TID PRN muscle spasms 01/01/22
duloxetine 60 mg capsule,delayed release (Cymbalta) 60 mg PO DAILY Pain 01/01/22
fluticasone fur. 200 mcg-umeclid 62.5 mcg-vilant 25 mcg inhalat.powder (Trelegy Ellipta) 1 inh inhalation R DAILY Lung/breathing issues 01/01/22
pantoprazole 40 mg tablet,delayed release (Protonix) 40 mg PO DAILY Gastrointestinal issue 01/01/22
ropinirole 0.5 mg tablet 1 mg PO HS Neurological Condition 01/01/22
ubrogepant 100 mg tablet (Ubrelvy) 100 mg PO ONCE PRN migraines 01/01/22
ustekinumab 130 mg/26 mL intravenous solution (Stelara) 130 mg IV .[id number] Autoimmune disorder 01/01/22
albuterol sulfate 2.5 mg/3 mL (0.083 %) solution for nebulization 2.5 mg inhalation R Q4 PRN sob/wheezing 05/06/23
cevimeline 30 mg capsule 30 mg PO TID dry mouth 05/06/23
gabapentin 300 mg capsule 300 mg PO BID@0800,1400 Neurological Condition 05/06/23
gabapentin 300 mg capsule 600 mg PO HS Neurological Condition 05/06/23
levofloxacin 750 mg tablet 750 mg PO DAILY Infection 05/06/23
montelukast 10 mg tablet 10 mg PO HS Allergies 05/06/23
prednisone 10 mg tablet 10 mg PO .TAPER Anti-Inflammatory 05/06/23
tezepelumab-ekko 210 mg/1.91 mL (110 mg/mL) subcutaneous syringe (Tezspire) 0 mg SC MONTHLY asthma 05/06/23
amoxicillin 875 mg-potassium clavulanate 125 mg tablet 1 tab PO Q12 #10 tabs 05/08/23
prednisone 10 mg tablet See Rx Instructions .Route .COMPLEX #30 tabs 05/08/23
Home Medication Changes
Pending Results: No
Additional Pending Results:
Physical exam:
General: Awake, alert and oriented x3, not in distress and holds appropriate conversation.
HEENT: No active discharge, ecchymosis or bruising, moist lips, tongue and mucous membrane.
Eyes: No discharge or red conjunctiva, no nystagmus, pupils are reactive and equal
Neck:Supple, no JVD no bruit no goiter.
Respiratory: Normal AP contour and diameter, normal chest wall movement, normal respiratory effort, no respiratory distress,
Lungs: Good air entry bilaterally, no wheezing or rhonchi, no rales or crackles
Heart: S1, S2 regular, normal rate, no added sound.
Gastrointestinal: Positive bowel sounds, soft, nontender, no guarding or rigidity or organomegaly
Musculoskeletal: , no chest wall abnormality or tenderness. All joints and extremities have good range of motion, no muscle tenderness or any joint swelling or tenderness.
Extremities: No pitting edema, good peripheral pulses, good range of motion
Skin: Warm and dry, no ulceration, normal color.
Neurological: Awake, alert and oriented x3, cranial nerve II-XII grossly intact, speech clear and comprehensive, good muscle tone, normal sensory and motor function
Psychiatric: Normal mood, normal thought and judgment, normal affect,
Condition on discharge: Awake, alert and oriented x3, answer question properly, able to make own decision and take care of activities of daily living, speech clear and comprehensive, continent of the bowel and bladder, ambulate without assistant media buyer,
goes home where lives with the family independently.
--- NOTE | 2023-05-08 12:41 | W.DCSUMMARY ---
Addendum entered and electronically signed by Cecilia Carballo MD 05/11/23 20:04:
Pneumonia it is not related to MRSA
Hyponatremia present on admission, improved
Obesity, unclear cause,
40.8
Original Note:
Discharge Summary
Discharge Data
Date of Admission: 05/06/23
Date of Discharge: 05/08/23
-
Pending Results: No
Hospital Course
Discharging Physician : Dr. Cecilia Carballo
Disposition :
Principal Discharge diagnosis :
1. Acute sepsis, resolved
2. Pneumonia and hemoptysis
3. Acute asthma exacerbation
4. History of asthma
5. History of chronic immunodeficiency
6. History of migraine
7. History of Crohn's disease
8. Fibromyalgia
9. Restless leg syndrome.
History of present illness:
52-year-old female past medical history of asthma, migraines, Crohn's disease, fibromyalgia, mixed connective tissue disease, immunodeficiency,, mitochondrial genetic DNAse disorder, endometriosis, partial right kidney nephrectomy due to kidney mass
presenting with URI symptoms.� Presenting with persistent URI symptoms.� Patient states that over the past 6 months she has developed frequent upper respiratory infections and has been treated with antibiotics and steroids a few times.�
2 weeks ago she developed URI symptoms with cough and congestion and was treated with a course of Levaquin.� Symptoms improved and then got worse approximately week ago.� Her had also developed URI symptoms the patient tested herself and was
positive for influenza.� She was treated with Tamiflu and a course of steroids which she has completed.
Her symptoms persisted and she was started on a second course of Levaquin 3 days ago and another course of prednisone.� She had an x-ray 2 days ago which showed pneumonia.
Over the past few days she continues to have cough that is productive with mucus as well as blood.� She has shortness of breath.� She has a sore throat as well as chest pain associated breathing and cough.� She denies fevers and chills including
fever of 101.2 this morning.� She did have an episode of vomiting but otherwise denies any further nausea or vomiting.� She denies any abdominal pain or diarrhea.
Patient follows pulmonology/allergy Dr. Tati Pate who apparently checked her immunoglobulin levels previously and were found to be low.� A lung biopsy was also considered due to patient's frequent infections.
Patient has a mitochondrial genetic disease due to which she feels periodic fatigue.
Hospital Course :
So patient admitted for shortness of breath and fever and cough and hemoptysis, where the workup showed pneumonia.
Because of the recent influenza infection and he has minimal compromise she was started on vancomycin and cefepime, antibiotic continued during hospitalization also started on IV dexamethasone twice a day and breathing treatment because of the
asthma exacerbation.
Her condition were improving very well and her cough and hemoptysis were resolving and in the last 24 hours have no more productive cough or hemoptysis. No more fever in the last 24 to 36 hours. , she has been eating and drinking well without any
other discomfort or complaint.
Notices white cell count going up which is likely secondary to steroids.
On examination initially his lung was very diminished and bronchospastic but with the breathing treatment and steroid resolved.
Patient feels back close to her baseline and stable for discharge home with continued antibiotic with Augmentin at home for 5 more days, also taper dose of prednisone.
Advised about increase oral hydration and about the antibiotic may cause diarrhea.
She will also return to the hospital if symptoms return feeling not improve also was mentioned to him that may take slow time to completely recover from pneumonia.
Advised about follow-up with a primary care physician within the next 7 to 10 days.
Changes to Home Medications: No
Discharge Medications:
DC Medications w/original date entered in [employer]
acetaminophen 500 mg tablet (Tylenol Extra Strength) 1,000 mg PO Q6HPRN PRN mild pain/fever 09/23/19
albuterol sulfate 90 mcg/actuation aerosol inhaler 2 puff inhalation R Q4HPRN PRN shortness of breath 09/23/19
multivitamin 1 ea PO DAILY Supplement 07/17/20
baclofen 10 mg tablet 10 mg PO TID PRN muscle spasms 01/01/22
duloxetine 60 mg capsule,delayed release (Cymbalta) 60 mg PO DAILY Pain 01/01/22
fluticasone fur. 200 mcg-umeclid 62.5 mcg-vilant 25 mcg inhalat.powder (Trelegy Ellipta) 1 inh inhalation R DAILY Lung/breathing issues 01/01/22
pantoprazole 40 mg tablet,delayed release (Protonix) 40 mg PO DAILY Gastrointestinal issue 01/01/22
ropinirole 0.5 mg tablet 1 mg PO HS Neurological Condition 01/01/22
ubrogepant 100 mg tablet (Ubrelvy) 100 mg PO ONCE PRN migraines 01/01/22
ustekinumab 130 mg/26 mL intravenous solution (Stelara) 130 mg IV .[id number] Autoimmune disorder 01/01/22
albuterol sulfate 2.5 mg/3 mL (0.083 %) solution for nebulization 2.5 mg inhalation R Q4 PRN sob/wheezing 05/06/23
cevimeline 30 mg capsule 30 mg PO TID dry mouth 05/06/23
gabapentin 300 mg capsule 300 mg PO BID@0800,1400 Neurological Condition 05/06/23
gabapentin 300 mg capsule 600 mg PO HS Neurological Condition 05/06/23
levofloxacin 750 mg tablet 750 mg PO DAILY Infection 05/06/23
montelukast 10 mg tablet 10 mg PO HS Allergies 05/06/23
prednisone 10 mg tablet 10 mg PO .TAPER Anti-Inflammatory 05/06/23
tezepelumab-ekko 210 mg/1.91 mL (110 mg/mL) subcutaneous syringe (Tezspire) 0 mg SC MONTHLY asthma 05/06/23
amoxicillin 875 mg-potassium clavulanate 125 mg tablet 1 tab PO Q12 #10 tabs 05/08/23
prednisone 10 mg tablet See Rx Instructions .Route .COMPLEX #30 tabs 05/08/23
Home Medication Changes�
Physical exam:
General: Awake, alert and oriented x3, not in distress and holds appropriate conversation.
HEENT: No active discharge, ecchymosis or bruising, moist lips, tongue and mucous membrane.
Eyes: No discharge or red conjunctiva, no nystagmus, pupils are reactive and equal
Neck:Supple, no JVD no bruit no goiter.
Respiratory: Normal AP contour and diameter, normal chest wall movement, normal respiratory effort, no respiratory distress,
Lungs: Good air entry bilaterally, no wheezing or rhonchi, no rales or crackles
Heart: S1, S2 regular, normal rate, no added sound.
Gastrointestinal: Positive bowel sounds, soft, nontender, no guarding or rigidity or organomegaly
Musculoskeletal: , no chest wall abnormality or tenderness.� All joints and extremities have good range of motion, no muscle tenderness or any joint swelling or tenderness.
Extremities: No pitting edema, good peripheral pulses, good range of motion
Skin: Warm and dry, no ulceration, normal color.�
Neurological: Awake, alert and oriented x3, cranial nerve II-XII grossly intact, speech clear and comprehensive, good muscle tone, normal sensory and motor function
Psychiatric: Normal mood, normal thought and judgment, normal affect,
Condition on discharge: Awake, alert and oriented x3, answer question properly, able to make own decision and take care of activities of daily living, speech clear and comprehensive, continent of the bowel and bladder, ambulate without event marketing assistant,
goes home where� lives with the family independently.
Discharge Plan
-
Patient Disposition: Home (Routine Discharge)
Discharge Diagnosis/Procedures: Pneumonia
Condition: Good
Diet: Low Cholesterol and 2 Gram Sodium
Activity: No restrictions
Driving Restrictions: As prior to admission
Activity Restrictions/Additional Instructions:
-Been admitted in for pneumonia showing infection.
-Given antibiotic will be completed the next few day but still may be symptomatic like coughing or feeling fatigue and tired as long as it will get worse do not have a recurrent fever or hemoptysis check natural course of the disease, if worsening
happen no hemoptysis came back with developed more fever need to come back to the hospital immediately.
-Encourage oral hydration
-Continue home medication.
-Was given a tapered dose of steroids for now
-Using nebulizer with albuterol you have for the next few days and then make it as needed after.
-Have a cup yogurt daily while on antibiotic.
-Current antibiotic Augmentin which may causes some bloating or diarrhea if any happened cannot be tolerated need to stop and addressed with the primary care physician, if diarrhea persist or develop abdominal pain or fever need to come to the
hospital.
Referrals:
Taylor Terry CRNP [Family Provider] -
Prescriptions:
New
amoxicillin-pot clavulanate 875-125 mg Tablet
1 tab PO Q12 Qty: 10 0RF
prednisone 10 mg Tablet
See Rx Instructions .ROUTE .COMPLEX Qty: 30 0RF
Rx Instructions:
Take By Mouth:
40 mg daily x3 days, 30 mg daily x3 days,
20 mg daily x3 days, 10 mg daily x3 days.
Continued
multivitamin 1 EACH tablet
1 ea PO DAILY
acetaminophen [Tylenol Extra Strength] 500 MG tablet
1,000 mg PO Q6HPRN PRN (Reason: mild pain/fever)
albuterol sulfate 1 PUFF HFA aerosol inhaler
2 puff inhalation R Q4HPRN PRN (Reason: shortness of breath)
ropinirole 0.5 mg Tablet
1 mg PO HS
duloxetine [Cymbalta] 60 mg Capsule,Delayed Release(Dr/Ec)
60 mg PO DAILY
pantoprazole [Protonix] 40 mg Tablet,Delayed Release (Dr/Ec)
40 mg PO DAILY
Trelegy Ellipta 200-62.5-25 mcg Blister With Device
1 inh INHALATION R DAILY
baclofen 10 mg Tablet
10 mg PO TID PRN (Reason: muscle spasms)
Stelara 130 mg/26 mL Solution
130 mg IV .[id number]
Ubrelvy 100 mg Tablet
100 mg PO ONCE PRN (Reason: migraines)
prednisone 10 mg tablet
10 mg PO .TAPER
Rx Instructions:
5 tabs daily x 2 days, 4 tabs daily x 2 days, 3 tabs daily x 2 days, 2 tabs daily x 2 days, 1 tab daily x 2 days
albuterol sulfate 2.5 mg /3 mL (0.083 %) solution for nebulization
2.5 mg inhalation R Q4 PRN (Reason: sob/wheezing)
cevimeline 30 mg capsule
30 mg PO TID
gabapentin 300 mg capsule
300 mg PO BID@0800,1400
gabapentin 300 mg capsule
600 mg PO HS
montelukast 10 mg tablet
10 mg PO HS
levofloxacin 750 mg tablet
750 mg PO DAILY
Tezspire 210 mg/1.91 mL (110 mg/mL) syringe
0 mg SC MONTHLY
Discharge Orders:
Discharge Patient (As Directed); Ordered 05/08/23
Ordered By: Cecilia Carballo
--- NOTE | 2023-05-08 12:53 | PN.CDI ---
CDI
- -
CDI:
Physician Documentation Request
Admit Date: 05/06/23 19:57
Dear Doctor Kait,
Please review the following and provide your response in the progress notes.
Clinical Indicators:
Height: 5 ft 3 inches
Weight:230
BMI: 40.8
RD notes: 'chart reviewed due to pt with BMI > 40 morbidly obese range. '
If possible, please provide an associated diagnosis related to the abnormal BMI, such as:
BMI > or = to 40
Overweight
Obesity:
Due to excess calories
Drug induced
Due to other cause
Severe or morbid obesity:
With alveolar hypoventilation (Obesity hypoventilation syndrome)
Without alveolar hypoventilation
- BMI is not significant
- Other
Use of terms such as suspected, likely, concern for, or probable (associated with a specific diagnosis that is being evaluated, monitored, or treated as if it exists) are acceptable and can be coded in the inpatient setting, when documented at the
time of discharge.
Thank you,
Alyssa Damico RN, BSN
CDI Specialist
tiger text
Please use your independent medical judgment in providing your response.
--- NOTE | 2023-05-08 12:56 | PN.CDI ---
CDI
- -
CDI:
Physician Documentation Request
Admit Date: 05/06/23 19:57
Dear Doctor Kait,
Patient admitted with sepsis due to pneumonia
Sodium resulted as follows:
Laboratory Tests
05/06/23 05/07/23
15:32 05:41
Sodium 129 L 134 L
Could you please provide a diagnosis that supports the above lab abnormalities and additional evaluation,/monitoring:
Hyponatremia
Abnormal lab value clinically insignificant
Other
Use of terms such as suspected, likely, concern for, or probable (associated with a specific diagnosis that is being evaluated, monitored, or treated as if it exists) are acceptable and can be coded in the inpatient setting, when documented at the
time of discharge.
Thank you,
Alyssa Damico RN, BSN
CDI Specialist
tiger text
Please use your independent medical judgment in providing your response.
--- NOTE | 2023-05-08 13:00 | PN.CDI ---
CDI
- -
CDI:
Physician Documentation Request
Admit Date: 05/06/23 19:57
Dear Doctor Kait,
Patient admitted with sepsis due to pneumonia.
Sputum culture positive for MRSA
Please clarify if a relationship exist between these conditions:
Yes, pneumonia is related to/associated with/due to MRSA .
No, pneumonia is not related to/associated with/due to MRSA
Unable to determine
Use of terms such as suspected, likely, concern for, or probable (associated with a specific diagnosis that is being evaluated, monitored, or treated as if it exists) are acceptable and can be coded in the inpatient setting, when documented at the
time of discharge.
Thank you,
Alyssa Damico RN, BSN
CDI Specialist
tiger text
Please use your independent medical judgment in providing your response.
[2023-05-08] MEDS: ZOSYN IV (13:39)
== END 2023-05-08 14:15 | disposition home or self-care (01) | DRG 871 ==
LOC: 3 WEST ACU 19:57
PROVIDERS: Physician Assistant; Student in an Organized Health Care Education/Training Program; ADMITTING PHYSICIAN Hospitalist; ATTENDING PHYSICIAN Internal Medicine; EMERGENCY PHYSICIAN Emergency Medicine; FAMILY PHYSICIAN Nurse Practitioner Adult Health; OTHER PHYSICIAN Internal Medicine Critical Care Medicine
DX: A41.9 Sepsis, unspecified organism (principal); J15.9 Unspecified bacterial pneumonia; J18.9 Pneumonia, unspecified organism; K50.90 Crohn's disease, unspecified, without complications; M35.1 Other overlap syndromes; J45.901 Unspecified asthma with (acute) exacerbation; E88.40 Mitochondrial metabolism disorder, unspecified; E87.1 Hypo-osmolality and hyponatremia; Z68.41 Body mass index [BMI] 40.0-44.9, adult; Z11.52 Encounter for screening for COVID-19; M79.7 Fibromyalgia; G25.81 Restless legs syndrome; N80.9 Endometriosis, unspecified; N28.89 Other specified disorders of kidney and ureter; K21.9 Gastro-esophageal reflux disease without esophagitis; E66.9 Obesity, unspecified
CPT/HCPCS: 71046; 80048; 80053; 85025; 87040; 87070; 87147; 87186; 87205; 87811; 93005; 94640; 96361; 96374; 99285

== ENCOUNTER 2023-05-14 20:22 | Inpatient (IN) | payer OTHER, SELFPAY ==
[2023-05-14 15:44] VITALS: BP 164/101
[2023-05-14 15:58] LABS: % Basophils 0.2 % (0-2); % Immature Granulocytes 2.8 % (0-0.5); % Lymphocytes 2.9 % (20.5-51.1); % Monocytes 2.6 % (1.7-9.3); % Neutrophils 91.5 % (42.2-75.2); Absolute Basophils 0.1 10^3/uL (0-0.2); Absolute Immature Granulocytes 0.8 10^3/uL (0-0.05); Absolute Lymphocytes 0.8 10^3/uL (1.2-3.4); Absolute Monocytes 0.7 10^3/uL (0.1-0.6); Absolute Neutrophils 26.4 10^3/uL (1.4-6.5); Hematocrit 37.4 % (37.0-47.0); Mean Corp Hgb Conc. 34.8 g/dL (33.0-37.0); Mean Corpuscular Volume 86.4 fL (81.0-99.0); Nucleated Red Blood Cells % 0 %; Platelet Count 552 10^3/uL (130-400); Red Blood Cell Count 4.33 10^6/uL (4.20-5.40); Red Cell Dist. Width 12.4 % (11.5-14.5); White Blood Cell Count 28.9 10^3/uL (4.8-10.8)
[2023-05-14 16:10] LABS: ALT (SGPT) 122 U/L (0-35); AST (SGOT) 83 U/L (14-36); Albumin 3.7 g/dl (3.5-5.0); Alkaline Phosphatase 96 U/L (38-126); Blood Urea Nitrogen 16 mg/dl (7-17); Calcium 9.4 mg/dl (8.4-10.2); Carbon Dioxide 25 mmol/L (22-30); Chloride 97 mmol/L (98-107); Glucose 129 mg/dl (70-99); Potassium 4.8 mmol/L (3.5-5.1); Sodium 132 mmol/L (135-145); Total Bilirubin 0.5 mg/dl (0.2-1.3); Total Protein 6.4 g/dl (6.3-8.2); eGFR > 60.00
--- NOTE | 2023-05-14 18:16 | ED.GENMED ---
History of Present Illness
<Isa Orellana PA-C - Last Filed: 05/14/23 20:39>
General
Chief Complaint: Weakness
Source: patient
Exam Limitations: none
Time Seen by Provider: 05/14/23 18:13
Nursing documentation reviewed up to this point in time: agreed with
Travel History
Have you had any contact with someone who has COVID-19?: No
Do you have any symptoms of coronavirus? Fever > 100 degrees, chills, cough, shortness of breath, sore throat, loss of taste or smell, muscle aches, or headache?: No
History of Present Illness
History of Present Illness:
Patient is a 52 year old female with history hypertension, crohns disease, hypertension, asthma presenting for evaluation of persistent weakness and fevers in the setting of known pneumonia. Patient was recently admitted here from 05/06/23-05/08/23
for sepsis secondary to pneumonia. She was discharged on course of levofloxacin for which she finished yesterday. She endorses initial improvement followed by acute worsening 2 days ago. She has noticed worsening malaise, chest tightness, and
intermittent fevers. She was seen by PCP earlier today who referred to emergency department for further evaluation. Sh
Cough is persistent but patient states sputum is white/yellow at this point. She denies any vomiting or constipation.
No recent travel or surgeries
Of note- patient has blood cultures positive for MRSA on prior admission.
Past History
<Isa Orellana PA-C - Last Filed: 05/14/23 20:39>
Past History
ED Past Medical History: Asthma and Other (Migraines, colitis, Crohn's, fibromyalgia, mixed connective tissue disease)
ED Past Surgical History: Appendectomy, and Tonsilectomy
Social History
Tobacco: Non-smoker
Alcohol: None
Drug: None
Personal:
Living: with family
Employment: Employed
Family History
Family History: Hypertension
Phy Exam
<Isa Orellana PA-C - Last Filed: 05/14/23 20:39>
Physical Exam
Physical Exam:
General: In no apparent distress, non-toxic
Vitals: Hypertensive, tachycardic; otherwise stable, afebrile
HEENT: Atraumatic, normocephalic; pulls equal round react light bilaterally, protecting airway
Neck: appears supple, no meningeal signs
CV: Tachycardic, regular rhythm, no evidence of cyanosis
Resp: No evidence of respiratory distress, mild expiratory wheeze bilaterally
Abd: Soft, mild tenderness in upper abdomen without rebound or guarding, non-distended
Extremities: No deformities, no evidence of cyanosis or edema
Neuro: alert and oriented x 3, speech normal, no focal neurologic deficits
Psych: Normal affect
Skin: Intact, no rashes
Course
<Isa Orellana PA-C - Last Filed: 05/14/23 20:39>
Orders/Labs/Results
Orders:
Orders
05/14/23 15:47
CXR2 [CR Chest - 2 Views ] Urgent
Comment:
Reason For Exam: sob
05/14/23 15:51
Complete Blood Count/With Diff Urgent
Comprehensive Metabolic Panel Urgent
05/14/23 18:33
0.9% Sodium Chloride 1000 ml [Nss] 1,000 ml IV BOLUS
Ipratropium/Albuterol Sulfate [Duoneb] 3 ml INH R NOW STA
05/14/23 18:35
Piperacillin/Tazo 3.375 Gram [Zosyn] 3.375 gram in 50 ml IV NOW
05/14/23 18:49
Urinalysis Reflex To Culture Urgent
Date Specimen was Collected: 05/14/23
Time Specimen was Collected: 20:21
05/14/23 18:57
COVID-19 Antigen Urgent
Source: Nasal Swab
Lactate Level [Lactic Acid] Urgent
Blood Culture Q30M
[facility] Source: Blood/Venous
Specimen Description:
Blood Culture Q30M
[facility] Source: Blood/Venous
Specimen Description:
Influenza A+B Rapid Molecular Urgent
[facility] Source: Nasal Swab
Specimen Description:
05/14/23 19:49
Admit/Transfer Patient As Directed
Co-Sign Provider:
Level of Care: Inpatient admission
Assign to:: Medical/Surgical
Physician / Group: devonte
Diagnosis: mrsa pneumonia
Reason for Hospitalization: mrsa pneumonia
Expected length of stay greater than two midnights?: Yes
ELOS- Estimated Length of Stay in days: 2
I certify the patient meets the requirements for IP care: Yes
05/14/23 19:51
Code Status As Directed
Resuscitation Status: Full Code
05/14/23 19:56
Respiratory Culture/Gram Stain Urgent
[facility] Source: Sputum
Specimen Description:
Date Specimen was Collected: 05/14/23
Time Specimen was Collected: 20:21
Abnormal Lab Results
05/14/23
15:51
WBC 28.9 H 10^3/uL
(4.8-10.8)
Plt Count 552 H D 10^3/uL
(130-400)
Abs Immat Gran (auto) 0.8 H 10^3/uL
(0-0.05)
Absolute Neuts (auto) 26.4 H 10^3/uL
(1.4-6.5)
Absolute Lymphs (auto) 0.8 L 10^3/uL
(1.2-3.4)
Absolute Monos (auto) 0.7 H 10^3/uL
(0.1-0.6)
Immature Gran % 2.8 H %
(0-0.5)
Neutrophils % 91.5 H %
(42.2-75.2)
Lymphocytes % 2.9 L %
(20.5-51.1)
Sodium 132 L mmol/L
(135-145)
Chloride 97 L mmol/L
(98-107)
Glucose 129 H mg/dl
(70-99)
AST 83 H U/L
(14-36)
ALT 122 H U/L
(0-35)
05/14/23 15:51
05/14/23 15:51
Vital Signs
Initial and Last Documented VS:
Initial Vital Signs
Temp Pulse Resp BP Pulse Ox
98.7 F 112 18 164/101 97
05/14/23 15:44 05/14/23 15:44 05/14/23 15:44 05/14/23 15:44 05/14/23 15:44
Last Documented Vital Signs
Temp Pulse Resp BP Pulse Ox
98.7 F 79 11 148/92 96
05/14/23 15:44 05/14/23 19:15 05/14/23 19:15 05/14/23 19:09 05/14/23 19:15
<Duke Linares, DO - Last Filed: 05/14/23 18:37>
Orders/Labs/Results
Orders:
Orders
05/14/23 15:47
CXR2 [CR Chest - 2 Views ] Urgent
Comment:
Reason For Exam: sob
05/14/23 15:51
Complete Blood Count/With Diff Urgent
Comprehensive Metabolic Panel Urgent
05/14/23 18:33
0.9% Sodium Chloride 1000 ml [Nss] 1,000 ml IV BOLUS
Ipratropium/Albuterol Sulfate [Duoneb] 3 ml INH R NOW STA
05/14/23 18:35
Piperacillin/Tazo 3.375 Gram [Zosyn] 3.375 gram in 50 ml IV NOW
05/14/23 18:49
Urinalysis Reflex To Culture Urgent
Date Specimen was Collected: 05/14/23
Time Specimen was Collected: 20:21
05/14/23 18:57
COVID-19 Antigen Urgent
Source: Nasal Swab
Lactate Level [Lactic Acid] Urgent
Blood Culture Q30M
[facility] Source: Blood/Venous
Specimen Description:
Blood Culture Q30M
[facility] Source: Blood/Venous
Specimen Description:
Influenza A+B Rapid Molecular Urgent
[facility] Source: Nasal Swab
Specimen Description:
05/14/23 19:49
Admit/Transfer Patient As Directed
Co-Sign Provider:
Level of Care: Inpatient admission
Assign to:: Medical/Surgical
Physician / Group: devonte
Diagnosis: mrsa pneumonia
Reason for Hospitalization: mrsa pneumonia
Expected length of stay greater than two midnights?: Yes
ELOS- Estimated Length of Stay in days: 2
I certify the patient meets the requirements for IP care: Yes
05/14/23 19:51
Code Status As Directed
Resuscitation Status: Full Code
05/14/23 19:56
Respiratory Culture/Gram Stain Urgent
[facility] Source: Sputum
Specimen Description:
Date Specimen was Collected: 05/14/23
Time Specimen was Collected: 20:21
Abnormal Lab Results
05/14/23
15:51
WBC 28.9 H 10^3/uL
(4.8-10.8)
Plt Count 552 H D 10^3/uL
(130-400)
Abs Immat Gran (auto) 0.8 H 10^3/uL
(0-0.05)
Absolute Neuts (auto) 26.4 H 10^3/uL
(1.4-6.5)
Absolute Lymphs (auto) 0.8 L 10^3/uL
(1.2-3.4)
Absolute Monos (auto) 0.7 H 10^3/uL
(0.1-0.6)
Immature Gran % 2.8 H %
(0-0.5)
Neutrophils % 91.5 H %
(42.2-75.2)
Lymphocytes % 2.9 L %
(20.5-51.1)
Sodium 132 L mmol/L
(135-145)
Chloride 97 L mmol/L
(98-107)
Glucose 129 H mg/dl
(70-99)
AST 83 H U/L
(14-36)
ALT 122 H U/L
(0-35)
05/14/23 15:51
05/14/23 15:51
Vital Signs
Initial and Last Documented VS:
Initial Vital Signs
Temp Pulse Resp BP Pulse Ox
98.7 F 112 18 164/101 97
05/14/23 15:44 05/14/23 15:44 05/14/23 15:44 05/14/23 15:44 05/14/23 15:44
Last Documented Vital Signs
Temp Pulse Resp BP Pulse Ox
98.7 F 79 11 148/92 96
05/14/23 15:44 05/14/23 19:15 05/14/23 19:15 05/14/23 19:09 05/14/23 19:15
<Isa Orellana PA-C - Last Filed: 05/14/23 20:39>
MDM/Problems Addressed
Differential Diagnosis Includes:
sepsis, hospital acquired pneumonia, viral pneumonia, bronchitis, doubt PE
MDM/Problems Addressed:
Patient is a 52-year-old female w/ history as documented presenting for worsening fatigue and intermittent fevers in the setting of known pneumonia. Recently discharged on 05/07 for sepsis secondary to pneumonia treatment. Finished outpatient
Levaquin yesterday. Initially was feeling better until acute worsening 2 days ago. Endorses tightness in chest, intermittent fevers, fatigue, productive cough of white sputum. Seen by PCP earlier today who referred her back to emergency
department for evaluation. She is hypertensive, tachycardic, but afebrile. Physical exam as documented above. She has mild bilateral expiratory wheeze. Initial labs drawn in triage show a significant leukocytosis of 28.9 with left shift. CMP
shows very mild hyponatremia and mild transaminitis. Chest x-ray shows persistent right upper lobe pneumonia and left perihilar pneumonia with slightly worsening in medial left lower lobe pneumonia. Leukocytosis along with tachycardia and known
source of infection�patient meets sepsis criteria. Will check lactic, blood cultures. Will check urinalysis. COVID and flu negative.
Will admit patient for sepsis secondary to pneumonia. Starting IV fluids, vancomycin/Zosyn. Discussed with hospitalist
Chronic conditions affecting care:
Asthma, hypertension
Acute Exacerbation and/or Progression of Chronic Illness:
Sepsis, pneumonia
<Isa Orellana PA-C - Last Filed: 05/14/23 20:39>
*Radiology
Radiology exam reviewed: preliminary read by ED provider and radiology read reviewed
*Pulse Oximetry
Patient hypoxic: no
*Critical Care Note
Total Time (30-74mins, 75-104mins- exclusive of procedures): Not Applicable
Data Reviewed
Review of Other/Old Records Reveals: Labs, Records, Progress Notes and Discharge Summary
Source: patient
<Isa Orellana PA-C - Last Filed: 05/14/23 20:39>
Patient Management
Discussion with other providers: Hospitalist
ED Attending Note
<Isa Orellana PA-C - Last Filed: 05/14/23 20:39>
-
Portions of this chart may have been created with voice recognition software.� Occasional wrong word or��sound alike� substitutions may have occurred due to the inherent limitations of voice recognition software.
<Duke Linares, DO - Last Filed: 05/14/23 18:37>
ED Attending Note
Patient seen and examined by attending physician: Yes
I performed the substantive portion of visit, reviewed & personally made and approve the management plan that is documented in note by myself or ARNAV.: Yes
ED Attending Note:
I have seen and evaluated the patient with a [id number] encounter. I have spoken to the advance practicer provider and involved in the medical history, the physical exam, medical decision making.
Evaluation and management service: agree unless noted differently below.
Results interpretation: agree unless noted differently below.
Focused HPI: 52-year-old female presenting with persistent shortness of breath and cough. Patient was recently discharged with Levaquin when she was diagnosed with sepsis and pneumonia
Physical exam: Mild expiratory wheezing. Abdomen soft nontender
Medical Decision Making: Chest x-ray shows persistent pneumonia. Given the elevated white blood cell count and worsening symptoms, will start IV antibiotics and admit
Discharge Plan
Departure
Patient Disposition: Admit
Date of Disposition: 05/14/23
Time of Disposition: 18:38
Presentation/result/management discussed w/ accepting MD/DO: Hospitalist
Discharge Problem:
Sepsis, unspecified organism, Pneumonia
Interventions
Interventions:
*Risk Screen - Suicide Last Done: 05/14/23 15:44
*General Assessment Last Done: 05/14/23 15:44
*Neglect/Abuse Screening Last Done: 05/14/23 15:44
*ED COVID-19 Vaccine History Last Done: 05/14/23 15:44
[2023-05-14] MEDS: NSS 1000 IV ×2 (19:03→22:44)
[2023-05-14 19:09] VITALS: BP 148/92
[2023-05-14] MEDS: ZOSYN 50 IV (19:13)
[2023-05-14] MEDS: DUONEB 3 ML INH (19:14)
[2023-05-14 19:21] VITALS: BMI 40.2
[2023-05-14 19:26] LABS: Lactic Acid 0.9 mmol/L (0.7-2.0)
[2023-05-14 19:32] LABS: COVID-19 Antigen Negative (Negative)
[2023-05-14 20:00] VITALS: BP 134/75
--- NOTE | 2023-05-14 20:03 | HPS.HSE ---
Family Physician
-
Family Physician: MARÍA Helton
Chief Complaint
-
fever, cough
History of Present Illness
52-year-old female with past medical history of 52-year-old female past medical history of asthma, migraines, Crohn's disease, fibromyalgia, mixed connective tissue disease, immunodeficiency,, mitochondrial genetic DNAse disorder, endometriosis,
partial right kidney nephrectomy due to kidney mass presenting for persistent weakness and fever associated with nonproductive cough. She also has pain in her chest with breathing/cough and upper abdomen. Denies coughing up any blood at this time.
Did have some nausea but denies vomiting.
Patient was recently admitted here from 05/06 to 05/07 for sepsis secondary to pneumonia. Patient was discharged on course of Levaquin which she finished yesterday. She initially felt better but felt worse 2 days ago. She noticed worsening fatigue,
chest tightness and intermittent fevers. Primary referred her to the emergency room.
Patient follows pulmonology/allergy Dr. Tati Pate who apparently checked her immunoglobulin levels previously and were found to be low. A lung biopsy was also considered due to patient's frequent infections.
Patient has a mitochondrial genetic disease due to which she feels periodic fatigue.
Medical History
Past Medical History
Past Medical History: Reports Other (asthma, migraines, Crohn's disease, fibromyalgia, mixed connective tissue disease, immunodeficiency,, mitochondrial genetic DNAse disorder, endometriosis, partial right kidney nephrectomy due to kidney mass)
Past Surgical History: Reports None
Social History
Tobacco: Non-smoker
Alcohol: Occasional
Drug: None
Family History
Family History: Not pertinent
Allergies / Home Medications
Allergies reflects when Allergies were last updated in [employer].
Home Medications with original date entered in [employer]
Allergy/Medication List:
Allergies
Allergy/AdvReac Type Severity Reaction Status Date / Time
methotrexate [Methotrexate] Allergy nausea, Verified 05/14/23 15:46
rash
pollen extracts Allergy runny nose Verified 05/14/23 15:46
Sulfa (Sulfonamide Allergy Rash, Verified 05/14/23 15:46
Antibiotics) itching
sulfasalazine Allergy rash, Verified 05/14/23 15:46
itching
Home Medications
acetaminophen 500 mg tablet (Tylenol Extra Strength) 1,000 mg PO Q6HPRN PRN mild pain/fever 09/23/19
albuterol sulfate 90 mcg/actuation aerosol inhaler 2 puff inhalation R Q4HPRN PRN shortness of breath 09/23/19
multivitamin 1 ea PO DAILY Supplement 09/23/19
baclofen 10 mg tablet 10 mg PO TID PRN muscle spasms 01/01/22
duloxetine 60 mg capsule,delayed release (Cymbalta) 60 mg PO DAILY Pain 01/01/22
fluticasone fur. 200 mcg-umeclid 62.5 mcg-vilant 25 mcg inhalat.powder (Trelegy Ellipta) 1 inh inhalation R DAILY Lung/breathing issues 01/01/22
pantoprazole 40 mg tablet,delayed release (Protonix) 40 mg PO DAILY Gastrointestinal issue 01/01/22
ropinirole 0.5 mg tablet 1 mg PO HS Neurological Condition 01/01/22
ubrogepant 100 mg tablet (Ubrelvy) 100 mg PO ONCE PRN migraines 01/01/22
ustekinumab 130 mg/26 mL intravenous solution (Stelara) 130 mg IV .[id number] Autoimmune disorder 01/01/22
albuterol sulfate 2.5 mg/3 mL (0.083 %) solution for nebulization 2.5 mg inhalation R Q4 PRN sob/wheezing 05/06/23
cevimeline 30 mg capsule 30 mg PO TID dry mouth 05/06/23
gabapentin 300 mg capsule 300 mg PO BID@0800,1400 Neurological Condition 05/06/23
gabapentin 300 mg capsule 600 mg PO HS Neurological Condition 05/06/23
montelukast 10 mg tablet 10 mg PO HS Allergies 05/06/23
tezepelumab-ekko 210 mg/1.91 mL (110 mg/mL) subcutaneous syringe (Tezspire) 0 mg SC MONTHLY asthma 05/06/23
amoxicillin 875 mg-potassium clavulanate 125 mg tablet 1 tab PO Q12 #10 tabs 05/08/23
prednisone 10 mg tablet See Rx Instructions .Route .COMPLEX #30 tabs 05/08/23
Review of Systems
-
History Source: Patient
A 12 point ROS was completed and negative except as noted: Yes
Constitutional: Reports No Symptoms
EENT: Reports No Symptoms
Respiratory: Reports No Symptoms
Cardiac: Reports No Symptoms
Abdomen/GI: Reports No Symptoms
: Reports No Symptoms
Musculoskeletal: Reports No Symptoms
Skin: Reports No Symptoms
Neurological: Reports No Symptoms
Endocrine: Reports No Symptoms
Hematologic/Lymphatic: Reports No Symptoms
Psych: Reports No Symptoms
Physical Exam
Vital Signs
Vital Signs
Temp Pulse Resp BP Pulse Ox
98.7 F 79 11 148/92 96
05/14/23 15:44 05/14/23 19:15 05/14/23 19:15 05/14/23 19:09 05/14/23 19:15
Physical Exam
General: Well Developed, Well Nourished and No Apparent Distress
HEENT: NormoCephalic, Moist mucous membranes and Atraumatic
Respiratory: Clear
Cardiac: S1/S2 and Regular Rhythm; No Murmur or Rub
GI: Soft, Non Tender, Non Distended and Normal Bowel Sounds; No Organomegaly
Rectal: Deferred by Provider
Musculoskeletal: No Clubbing, No Cyanosis and No Edema
Skin: No Rash
Neuro: Nonfocal/grossly intact
Laboratory Results
-
05/14/23 15:51
05/14/23 15:51
Laboratory Results
Lactic Acid 0.9 mmol/L (0.7-2.0) 05/14/23 18:57
Total Bilirubin 0.5 mg/dl (0.2-1.3) 05/14/23 15:51
AST 83 U/L (14-36) H 05/14/23 15:51
ALT 122 U/L (0-35) H 05/14/23 15:51
Alkaline Phosphatase 96 U/L (38-126) 05/14/23 15:51
Data Reviewed
-
Lab Data: Labs Reviewed by me
Old Records: Reviewed
Impression/Plan
-
IMPRESSION:
PLAN:
# Sepsis (leukocytosis, fever ) secondary to insufficiently treated MRSA pneumonia in the setting of immunodeficiency
# Recent pneumonia after influenza infection treated with Tamiflu
-Chest x-ray shows persistent right upper lobe pneumonia and probable small amount of loculated pleural fluid, persistent left perihilar pneumonia and anterior medial left lower lobe pneumonia
-Recent sputum culture grew MRSA
-COVID-negative
-Influenza negative
-IV fluids
-Check blood cultures
-Check sputum culture
-Vancomycin/Zosyn
#Asthma
-continue current prednisone taper, will finish 30 mg today followed by 20 mg for 3 days and then 10 mg for 3 days
-Should try and minimize steroids given severe pneumonia
-DuoNebs every 6 hours as needed
-Continue Trelegy
-Continue montelukast
History of immunodeficiency with recurrent pulmonary infection
-Likely cause of frequent infections
History of migraines
-Continue Ubrelvy as needed
Crohn's disease
-Patient on Stelara
Fibromyalgia
-Continue duloxetine,
Mixed connective tissue disease
-Continue gabapentin, baclofen
Dry mouth
-Continue cevimeline
Restless leg syndrome
-Continue ropinirole, gabapentin
Mitochondrial genetic DNAse disorder
Endometriosis
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
GERD
-Continue Protonix
Full code
DVT prophylaxis�heparin
Regular diet
[2023-05-14 20:42] LABS: Urine Albumin Negative (Neg - Trace); Urine Bilirubin Negative (Negative); Urine Character Clear (Clear); Urine Color Yellow; Urine Glucose Negative (Negative); Urine Ketone Negative (Negative); Urine Leukocyte Negative (Negative); Urine Nitrite Negative (Negative); Urine Occult Blood Negative (Negative); Urine Specific Gravity 1.005 (<1.030); Urine Urobilinogen Negative (Neg - 1+)
[2023-05-14 21:00] VITALS: BP 127/76
[2023-05-14] MEDS: VANCOCIN 540 MG IV (21:23)
[2023-05-14] MEDS: DELTASONE 40 MG PO (22:43)
[2023-05-14] MEDS: SINGULAIR 10 MG PO (22:43)
[2023-05-14] MEDS: REQUIP 1 MG PO (22:43)
[2023-05-14] MEDS: NEURONTIN 600 MG PO (22:43)
[2023-05-14] MEDS: TYLENOL 1000 MG PO (22:43)
[2023-05-14] MEDS: HEPARIN 5000 UNITS SC (22:44)
--- NOTE | 2023-05-14 23:00 | PHA.VAN.IN ---
Assessment
- Assessment
Renal Function: Appears similar to baseline
Concomitant Antimicrobials: ZOSYN
- Previous Dosing Experience
Previous Regimen: 1250MG IV Q12H
Date of Regimen: 05/07/23
Provided Trough of: 10.8 PREDICTED
Provided AUC of: 453 PREDICTED
Patient's SCR is: Similar to previous dosing experience (05/06/23 SCR = 0.7)
Patient's weight is: Similar to previous dosing experience (05/06/23 WT = 102.5 KG)
AUC Dosing Plan
- Dosing Variables
Dosing Weight (kg): 102.9
Dosing CrCl (ml/min): 96
Vd coefficient (L/kg): 0.5
- Empiric Dosing
Initial / Loading Dose: 2GM
Maintenance Regimen: 1250MG IV Q12H
Estimated AUC (mcg*h/mL): 453
Estimated Peak (mcg*h/mL): 29.6
Estimated Trough (mcg/ml): 10.8
Estimated Half Life (H): 8.2
Pharmacokinetics Vancomycin I
- -
Patient Age: 52
Patient Sex: Female
Vancomycin Day #: 1
Indication: Pulmonary/Respiratory (SEPSIS)
Requesting Provider: SONIA
Pertinent Antimicrobial Allergies:
Allergies
Sulfa (Sulfonamide Antibiotics) Allergy (Verified 05/14/23 15:46)
Rash, itching
sulfasalazine Allergy (Verified 05/14/23 15:46)
rash, itching
Height / Weight:
Height 5 ft 3 in
Actual Weight 102.9 kg
Pertinent Past Medical History: RECENT HOSP FOR PNA/SEPSIS; BMI ~ 40
- Vital Signs / Lab Results
Temp Pulse Resp BP Pulse Ox
98.7 F 84 16 127/76 97
05/14/23 15:44 05/14/23 21:30 05/14/23 21:30 05/14/23 21:00 05/14/23 21:30
Lab Results - Hematology
05/14/23
15:51
WBC 28.9 H
Lab Results - Chemistry
05/14/23
15:51
BUN 16
Creatinine 0.8
Albumin 3.7
05/14/23
18:57
Lactic Acid 0.9
Lab Results - Urine
05/14/23
20:29
Urine Nitrite (Reflex) Negative
Leukocyte Esterase Rfl Negative
Microbiology Results
05/14/23 18:57 Influenza Types A & B (SERGIO) - Final
Nasal Swab Negative for Influenza A & B, NAAT
Negative results must be combined with clinical observations
and patient history.
Nucleic Acid Amplification test (NAAT)performed on the
[employer] platform.
[2023-05-14 23:17] VITALS: BP 152/91
[2023-05-15] MEDS: ZOSYN 50 IV ×4 (02:25→20:46)
[2023-05-15] MEDS: VANCOCIN 275 MG IV ×2 (05:50→17:07)
[2023-05-15 06:10] LABS: % Basophils 0.2 % (0-2); % Immature Granulocytes 2.4 % (0-0.5); % Lymphocytes 4.6 % (20.5-51.1); % Monocytes 1.8 % (1.7-9.3); Absolute Immature Granulocytes 0.5 10^3/uL (0-0.05); Absolute Lymphocytes 0.9 10^3/uL (1.2-3.4); Absolute Monocytes 0.4 10^3/uL (0.1-0.6); Absolute Neutrophils 17.5 10^3/uL (1.4-6.5); Hematocrit 39.1 % (37.0-47.0); Mean Corp Hgb Conc. 33.2 g/dL (33.0-37.0); Mean Corpuscular Volume 90.3 fL (81.0-99.0); Mean Platelet Volume 8.2 fL (7.4-10.4); Nucleated Red Blood Cells % 0 %; Platelet Count 504 10^3/uL (130-400); Red Blood Cell Count 4.33 10^6/uL (4.20-5.40); Red Cell Dist. Width 12.4 % (11.5-14.5); White Blood Cell Count 19.2 10^3/uL (4.8-10.8)
[2023-05-15 06:37] LABS: ALT (SGPT) 95 U/L (0-35); AST (SGOT) 37 U/L (14-36); Albumin 3.4 g/dl (3.5-5.0); Alkaline Phosphatase 86 U/L (38-126); Blood Urea Nitrogen 13 mg/dl (7-17); Calcium 9.3 mg/dl (8.4-10.2); Carbon Dioxide 26 mmol/L (22-30); Chloride 100 mmol/L (98-107); Estimated Creatinine Clearance 110 ml/min; Glucose 118 mg/dl (70-99); Sodium 136 mmol/L (135-145); Total Bilirubin 0.5 mg/dl (0.2-1.3); Total Protein 6.1 g/dl (6.3-8.2); eGFR > 60.00
[2023-05-15] MEDS: DUONEB 3 ML INH ×2 (07:35→19:33)
[2023-05-15] MEDS: SYMBICORT 160/4.5 MCG INHALER 2 PUFF INH ×2 (07:36→19:33)
[2023-05-15 07:45] VITALS: BP 154/88
[2023-05-15] MEDS: TYLENOL 1000 MG PO (09:45)
[2023-05-15 10:15] LABS: Procalcitonin < 0.05 ng/ml (0.0-0.25)
[2023-05-15] MEDS: NEURONTIN 300 MG PO ×2 (10:18→14:52)
[2023-05-15] MEDS: CYMBALTA DELAYED RELEASE 60 MG PO (10:19)
[2023-05-15] MEDS: PROTONIX 40 MG PO (10:19)
[2023-05-15] MEDS: HEPARIN 5000 UNITS SC ×2 (10:19→20:46)
[2023-05-15] MEDS: THERAGRAN 1 TABLET PO (10:19)
[2023-05-15] MEDS: DELTASONE 40 MG PO (10:44)
[2023-05-15] MEDS: MUCINEX 600 MG PO (10:47)
--- NOTE | 2023-05-15 11:25 | PHA.VAN.FU ---
Vancomycin Assessment / Plan
- Assessment
Renal Function: Stable
WBC's are: Trending Down
In the past 24 hrs, patient has been: Afebrile
Concomitant Antimicrobials: piperacillin/tazobactam
- Dosing Plan
Continue: vancomycin 1250 mg q12h - first dose 05/15/23 0600
- Monitoring Plan
Peak Level: 05/16/23 2100 - after 4th dose
Trough Level: 05/17/23 0530
- Follow Up
Pharmacy will continue to follow.
Vancomycin Follow UP
- -
Patient Age: 52
Patient Sex: Female
Vancomycin Day #: 2
Indication: Pulmonary/Respiratory (SEPSIS)
Requesting Provider: SONIA
Pertinent Antimicrobial Allergies:
Allergies
Sulfa (Sulfonamide Antibiotics) Allergy (Verified 05/14/23 15:46)
Rash, itching
sulfasalazine Allergy (Verified 05/14/23 15:46)
rash, itching
Height / Weight:
Height 5 ft 3 in
Actual Weight 102.9 kg
Pertinent Past Medical History: RECENT HOSP FOR PNA/SEPSIS; BMI ~ 40
- Vital Signs / Lab Results
Temp Pulse Resp BP Pulse Ox
97.9 F 72 16 154/88 97
05/15/23 07:45 05/15/23 07:45 05/15/23 07:45 05/15/23 07:45 05/15/23 07:45
Lab Results - Hematology
05/14/23 05/15/23
15:51 05:51
WBC 28.9 H 19.2 H
Lab Results - Chemistry
05/14/23 05/15/23
15:51 05:51
BUN 16 13
Creatinine 0.8 0.7
Estimated Creat Clear 110
Albumin 3.7 3.4 L
05/14/23
18:57
Lactic Acid 0.9
Lab Results - Urine
05/14/23
20:29
Urine Nitrite (Reflex) Negative
Leukocyte Esterase Rfl Negative
Microbiology Results
05/14/23 18:57 Influenza Types A & B (SERGIO) - Final
Nasal Swab Negative for Influenza A & B, NAAT
Negative results must be combined with clinical observations
and patient history.
Nucleic Acid Amplification test (NAAT)performed on the
[employer] platform.
--- NOTE | 2023-05-15 11:36 | W.PN.HOSP.TC ---
Addendum entered and electronically signed by Juan Jenkins MD 05/15/23 14:51:
Patient seen and examined
Discussed with resident.
Discussed with infectious disease service and pulmonology
Impression/plan:
Multilobar pneumonia right upper lobe/left lingular infiltrate likely community-acquired suspected postviral
Recent influenza.
Asthma exacerbation
� Recently hospitalized and discharged on Augmentin and prednisone taper.
Current presentation with severe fatigue, mildly productive cough, patient reports improving hemoptysis which was present prior to admission
Leukocytosis likely steroid-induced.
Immunosuppressive state (Crohn's disease on Stelara)
Stomatitis
Stable respiratory status.
Sepsis ruled out as patient remains hemodynamically stable with no evidence of organ failure
Chest x-ray on admission with persistent right upper lobe infiltrate and improved left hilar infiltrate.
Will check CT scan of the chest
Interestingly enough procalcitonin level undetectable although could not exclude bacterial pneumonia.
Recent respiratory cultures with MRSA.
Antibiotics expanded to vancomycin and Zosyn.
No evidence of bronchospasm on exam
Will consider rapid steroid taper, currently on 40 mg a day.
Stomatitis
Undergoing outpatient workup with rheumatology with concern of Sjogren's syndrome contemplating biopsy.
Start Magic mouthwash
Original Note:
Today's Communication/Plan
-
Continue Zosyn/vancomycin
Sputum and blood cultures pending
Continue DuTory, Liss, Singulair.
-Monitor respiratory status.
Assessment / Plan
Assessment / Plan
IMPRESSION:
Presentation with fever, weakness and shortness of breath in the setting of partially treated pneumonia.
Suspects sepsis given positive SIRS.
Multiple oral ulcerations.
CONDITIONS PRIOR TO ADMISSION:
Sjogren's disease
Asthma
Crohn's disease
Fibromyalgia
Mixed connective tissue disease
Restless legs syndrome
Mitochondrial genetic DNase disorder
Endometriosis
History of migraines
Multiple oral ulcerations
Rheumatoid arthritis
GERD
Primary hypertension
Mixed hyperlipidemia
Chronic migraine without aura
Right renal mass s/p partial right nephrectomy
PLAN:
Presentation with fever, weakness and shortness of breath in the setting of partially treated pneumonia.
-Patient recently discharged with history of productive cough with hemoptysis that resolved with Vanco/cefepime�completion of Augmentin course.
-Suspect sepsis due to partially treated pneumonia in the setting of immunodeficiency.
-Chest x-ray with persistent bilateral pneumonia.
-Recent sputum culture with MRSA, update sputum culture pending.
-MRSA precautions.
-Continue Zosyn and vancomycin.
-Blood culture pending.
-CT chest PE protocol.
-ID consult.
-Pulmonary consults.
-IV fluid.
-Monitor volume and hemodynamics.
Multiple oral ulcerations.
-Likely due to immunosuppression.
-Continue antibiotics.
-Consider outpatient biopsy.
Asthma
-Continue DuoNebs, Singulair, and Mucinex.
-Continue Trelegy.
-Corticosteroid taper.
History of migraines
-Continue Ubrelvy as needed
Crohn's disease
-Patient on Stelara.
Fibromyalgia
-Continue duloxetine.
Mixed connective tissue disease
-Continue gabapentin, and baclofen.
Sjogren's disease
-Continue cevimeline
Restless leg syndrome
-Continue ropinirole
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
GERD
-Continue Protonix.
DVT prophylaxis
-Heparin.
Anticipated Discharge: 24 - 48 hours
Subjective/Interval History
-
Date of Service: May 15, 2023
Objective Data
-
Labs:
Laboratory Results
05/15/23
05:51
WBC 19.2 H
Hgb 13.0
Hct 39.1
Plt Count 504 H
Sodium 136
Potassium 5.0
Chloride 100
Carbon Dioxide 26
BUN 13
Creatinine 0.7
Glucose 118 H
Calcium 9.3
Total Bilirubin 0.5
AST 37 H
ALT 95 H
Alkaline Phosphatase 86
Vital Signs:
Vital Signs
Temp Pulse Resp BP Pulse Ox
97.9 F 72 16 154/88 97
05/15/23 07:45 05/15/23 07:45 05/15/23 07:45 05/15/23 07:45 05/15/23 07:45
I&O
05/14/23 05/15/23 05/16/23
06:59 06:59 06:59
Intake Total 2199 / 0
Balance 2200 / 2199
Review of Systems
-
History Source: Patient
All other systems: Not reviewed unless documented
Constitutional: Reports Fever (Intermittent) and Fatigue
EENT: Reports Sore Throat (Mouth sores) and Mouth Pain
Respiratory: Reports Cough and Wheezing
Cardiac: Reports Chest Pain
Abdomen/GI: Reports Abdominal Pain (Right upper quadrant.)
Genitourinary: Reports No Symptoms; Denies Frequency, Flank Pain or Urgency
Musculoskeletal: Reports No Symptoms
Skin: Reports No Symptoms
Neuro: Reports Weakness
Endocrine: Reports No Symptoms
Allergy / Immunology: Reports Asthma
Physical Exam
-
General: Well Developed and No Apparent Distress; Negative Respiratory Distress
HEENT: Normocephalic, Atraumatic and Moist Mucous Membranes
Respiratory: Wheezes; Negative Rhonchi or Crackles
Cardiac: Regular Rhythm and S1/S2; Negative Murmur, Rub or Gallop
GI: Soft, Nondistended, Normal Bowel Sounds and Tender (RUQ with rebound tenderness); Negative Organomegaly
Rectal: Deferred by Provider
Musculoskeletal: No Clubbing, No Cyanosis and No Edema
Skin: Warm; Negative Rash
Neuro: Awake, Alert, AO x 3 and Nonfocal/Grossly Intact
Psych: Calm and Intact Judgement/Insight
Data Reviewed
-
Diagnostic Radiology: Image personally visualized and interpreted, Report Reviewed by me and Discussed with Physician
Labs: Labs Reviewed by me and Discussed with Physician
Old Records: Reviewed
[2023-05-15] MEDS: NSS 1000 IV (11:43)
[2023-05-15 15:02] VITALS: BP 173/96
[2023-05-15] MEDS: VENTOLIN NEBULES 2.5 MG INH (15:09)
[2023-05-15] MEDS: NON-FORMULARY ITEM 30 MG PO ×2 (15:29→22:19)
[2023-05-15] MEDS: NON-FORMULARY ITEM 100 MG PO (15:29)
--- NOTE | 2023-05-15 15:40 | CM ---
Chart reviewed. Spoke with pt at bedside
Pt reports lives she lives with her and daughter in a 2 story home
Reports independent, driving
DME - nebulizer
Denies past HH/SNF
PCP - Caridad Terry
Pharm - [facility]
Will have ride at d/c
CM will follow for d/c needs
Plan - anticipate home - no needs
--- NOTE | 2023-05-15 15:40 | CON.PUL ---
Consultation
Consultation Request
Date/Time Consultation Requested: 05/15/2023-12:30 PM
Date/Time Consultation Performed: 05/15/2023-12:30 PM
Requesting Provider: Hospitalist
Performing Provider: Dr. Curry
Reason for Consultation: Pneumonia
Medical History
-
Chief Complaint: Shortness of breath
History of Present Illness:
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
recently hospitalized in April for influenza and MRSA and now returns with increased shortness of breath and radiographs that have not improved 05/15/23. She complains of ongoing lethargy, some dyspnea exertion, increasing wheezing, occasional
productive cough, no pleurisy, no complaints of abdominal pain or nausea or abdominal pain or leg swelling.
Past Medical History
Past Medical History: None (Asthma-follows Dr. Pate from allergy and. Anxiety. Migraines. Crohn's disease. Chronic immunosuppression. Fibromyalgia. Mixed connective tissue disorder. Immunodeficiency. Mitochondrial genetic DNA disorder.
Endometriosis. Partial right nephrectomy due to kidney mass.)
Social History
Tobacco: Non-smoker
Alcohol: Occasional
Drug: None
Living: With Family
Occupational Exposures: No known asbestos exposure
Environmental Exposures: No known tuberculosis exposure
Family History
Family History: Reviewed & Not Pertinent
Allergies / Home Medications
Allergies
Allergy/AdvReac Type Severity Reaction Status Date / Time
methotrexate [Methotrexate] Allergy nausea, Verified 05/14/23 15:46
rash
pollen extracts Allergy runny nose Verified 05/14/23 15:46
Sulfa (Sulfonamide Allergy Rash, Verified 05/14/23 15:46
Antibiotics) itching
sulfasalazine Allergy rash, Verified 05/14/23 15:46
itching
Home Medications
Medication Instructions Recorded Confirmed Last Taken Type
acetaminophen 500 mg tablet 1,000 mg PO Q6HPRN PRN mild 09/23/19 05/14/23 01/01/22 07:00 History
(Tylenol Extra Strength) pain/fever
albuterol sulfate 90 mcg/actuation 2 puff inhalation R Q4HPRN PRN 09/23/19 05/14/23 Unknown History
aerosol inhaler shortness of breath
multivitamin 1 ea PO DAILY Supplement 09/23/19 05/14/23 05/14/23 History
baclofen 10 mg tablet 10 mg PO TID PRN muscle spasms 01/01/22 05/14/23 01/01/22 21:00 History
duloxetine 60 mg capsule,delayed 60 mg PO DAILY Pain 01/01/22 05/14/23 05/14/23 History
release (Cymbalta)
fluticasone fur. 200 mcg-umeclid 1 inh inhalation R DAILY 01/01/22 05/14/23 05/14/23 History
62.5 mcg-vilant 25 mcg Lung/breathing issues
inhalat.powder (Trelegy Ellipta)
pantoprazole 40 mg tablet,delayed 40 mg PO DAILY Gastrointestinal 01/01/22 05/14/23 05/14/23 History
release (Protonix) issue
ropinirole 0.5 mg tablet 1 mg PO HS Neurological Condition 01/01/22 05/14/23 05/13/23 History
ubrogepant 100 mg tablet (Ubrelvy) 100 mg PO ONCE PRN migraines 01/01/22 05/14/23 Unknown History
ustekinumab 130 mg/26 mL 130 mg IV .[id number] Autoimmune 01/01/22 05/14/23 11 Weeks Ago History
intravenous solution (Stelara) disorder ~02/18/23
albuterol sulfate 2.5 mg/3 mL 2.5 mg inhalation R Q4 PRN 05/06/23 05/14/23 Unknown History
(0.083 %) solution for nebulization sob/wheezing
cevimeline 30 mg capsule 30 mg PO TID dry mouth 05/06/23 05/14/2324 History
gabapentin 300 mg capsule 300 mg PO BID@0800,1400 05/06/23 05/14/23 05/14/23 History
Neurological Condition
gabapentin 300 mg capsule 600 mg PO HS Neurological Condition 05/06/23 05/14/23 05/13/23 History
montelukast 10 mg tablet 10 mg PO HS Allergies 05/06/23 05/14/23 05/13/23 History
tezepelumab-ekko 210 mg/1.91 mL 0 mg SC MONTHLY asthma 05/06/23 05/14/23 Unknown History
(110 mg/mL) subcutaneous syringe
(Tezspire)
prednisone 10 mg tablet See Rx Instructions .Route 05/08/23 05/14/23 Unknown Rx
.COMPLEX #30 tabs
amoxicillin 875 mg-potassium 1 tab PO Q12 Infection 05/15/23 05/14/23 05/14/23 History
clavulanate 125 mg tablet
Review of Systems
-
Unable to Obtain full review of systems at this time due to: Other (Per HPI)
Vitals / Labs / Diagnostic Testing
Vital Signs
Temp Pulse Resp BP Pulse Ox
98.6 F 79 18 173/96 97
05/15/23 15:02 05/15/23 15:13 05/15/23 15:13 05/15/23 15:02 05/15/23 15:13
Lab Data
05/15/23 05:51
05/15/23 05:51
Microbiology
05/14/23 20:29 Sputum Gram Stain - Preliminary
05/15/23 09:40 Sputum Gram Stain - Preliminary
05/14/23 18:57 Nasal Swab Influenza Types A & B (SERGIO) - Final
Negative for Influenza A & B, NAAT
Negative results must be combined with clinical observations
and patient history.
Nucleic Acid Amplification test (NAAT)performed on the
[employer] platform.
Diagnostic Testing:
Physical Exam
-
Exam:
Well-nourished and well-developed in no apparent distress
HEENT-atraumatic, normocephalic
Neck-supple, no JVD, no bruit
Heart-regular rate and rhythm-no murmurs, rubs or gallops
Chest with diminished breath sounds, rare crackles and with forced expiratory wheezes
Abdomen-soft, nontender, nondistended, no hepatosplenomegaly
Extremities-no cyanosis, clubbing, edema and good peripheral pulses
Integument-intact, no rashes, lesions or ecchymosis
Neurology-alert and oriented, nonfocal motor and sensory exam
Assessment
-
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
recently hospitalized in April for influenza and MRSA and now returns with increased shortness of breath and radiographs that have not improved 05/15/23.
Assessment
Asthma with acute exacerbation
Pneumonia-recent sputum grew MRSA-05/06 and 05/07/2023
Pulmonary lxmzzy-oij-mnveze pneumonia/atelectasis-will need to follow and possibly even biopsy
Chronic immunosuppression
Sepsis with leukocytosis and fever
Oral ulcers
Leukocytosis
Thrombocytosis
Mild hyperglycemia
Transaminitis
Morbid obesity-BMI 40
Conditions present prior to admission:
Asthma-follows Dr. Pate from allergy
Anxiety.
Migraines.
Crohn's disease.
Chronic immunosuppression.
Fibromyalgia.
Mixed connective tissue disorder.
Immunodeficiency.
Mitochondrial genetic DNA disorder.
Endometriosis.
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
Plan
Respiratory decompensation likely related to ongoing pneumonia and asthma exacerbation
Supplemental oxygen as needed
Mucolytic's
Nebulizers
Prednisone 40 mg daily with slow taper
Mucus clearing devices
Follow radiographically
Check sputum again
Sputum cultures 05/06 and 05/07/2023 positive for MRSA
Broad-spectrum antibiotics to cover MRSA-will need extended course of oral antibiotics to cover MRSA-previous hospitalization discharged on Augmentin that would not
If radiographs do not improve then bronchoscopy will be indicated-we will follow over the weekend and decide whether bronchoscopy is needed during this hospitalization
Infectious disease consultation-pending
Oral and posterior pharyngeal ulcers-May need cultures/biopsy
Monitor blood sugar
Insulin supplementation as needed
DVT prophylaxis-on heparin
GI prophylaxis-on pantoprazole
Nutrition
Early mobilization
Recommend outpatient pulmonary and sleep disorders [id number] PFTs/radiographic follow-up/sleep study
Patient follows with Dr. Pate from allergy-was told by Dr. Pate to make an appointment at [facility] pulmonary-has an appointment in 2 months
Patient has seen Dr. Mendoza in 2017-never followed up
Diagnostic data:
Chest x-ray 07/09/2022-no focal airspace disease
Chest x-ray 04/15/2023-NAD
Chest x-ray 05/04/2023-right upper lobe opacification suspicious for pneumonia
Chest x-ray 05/06/2023-moderate groundglass opacification right upper lobe stable, mild lower lobe atelectasis
Chest x-ray 05/14/2023-persistent right upper lobe opacification consistent with loculated pleural effusion and right upper lobe pneumonia slightly worse compared to previous exam
CT sinus 10/31/2022-paranasal sinuses are clear
CT chest 05/15/2023-no evidence for pulm embolism, bilateral upper lobe masses likely infectious as they are new compared to CT chest 09/27/2021, mucous plugging and pneumonia suspected
Sputum culture 05/07/2023 and 05/06/2023-positive for MRSA
Echocardiogram 04/24/2022-EF 55-60%, mild mitral regurgitation
Data Reviewed
-
EKG: Report reviewed by me
Radiology: Report reviewed by me
CT Scan: Image personally visualized and interpreted and Report reviewed by me
Medical Tests (Nuc Med, Echo etc): Report reviewed by me
Labs: Labs reviewed by me
Old Records: Reviewed
Total Time Spent with Patient (in minutes): 60
--- NOTE | 2023-05-15 15:51 | CON.ID ---
Consultation
-
Date/Time Consultation Requested: 05/15/2023 1211
Date/Time Consultation Performed: 05/15/2023 1540
Requesting Provider: Dr. Jenkins
Performing Provider: Dr. Ferris
Reason for Consultation: MRSA pneumonia
Chief Complaint / Past History
History of Present Illness
Katy Barnett is a 52-year-old female with significant past medical history of Crohn's disease being evaluated the request of Dr. Jenkins regarding MRSA pneumonia.
Patient reports that she first felt ill approximate 5 to 6 weeks ago with bronchitis. She was placed on antibiotics (unclear which 1) for approximately 1 week. She reports that she initially improved, but then worsened. She then saw her
neck fitter and was prescribed a course of Levaquin and prednisone approximately 2 and half weeks ago. She then developed influenza, and was started on Tamiflu, Levaquin and prednisone. Again she initially improved, but then clinically
worsened with fevers, cough yellow sputum with occasional blood in it. She presented to the ER and was admitted from 05/06/2023 through 05/08/2023 with pneumonia. She was discharged home to finish her course of levofloxacin which she completed on
05/14/2023. She notes that she has been feeling worse over the prior 2 days, with increasing malaise, chest tightness along with intermittent fevers. She had seen her PCP early on the day of admission and they referred her to the ER.
At admission, she was found to have a marked leukocytosis with significant left shift. Procalcitonin was noted to be negative, though.
Currently she reports she continues to feel ill. She notes ongoing headache. She notes chest discomfort, and also reports oral discomfort.
Past History
Additional Past Medical History:
Asthma
Migraines
Crohn's disease
Fibromyalgia
Mixed connective tissue disease
Mitochondrial genetic and DNase disorder
Colitis
Additional Past Surgical History:
Appendectomy
Tonsillectomy
Allergy History:
methotrexate [Methotrexate] Allergy (Verified 05/14/23 15:46)
nausea, rash
pollen extracts Allergy (Verified 05/14/23 15:46)
runny nose
Sulfa (Sulfonamide Antibiotics) Allergy (Verified 05/14/23 15:46)
Rash, itching
sulfasalazine Allergy (Verified 05/14/23 15:46)
rash, itching
Medications Reviewed: Yes
Current Antibiotics:
Zosyn 3.375 g IV every 6 hours
Vancomycin (dosed per pharmacy)
Social History
Tobacco: Non-Smoker
Alcohol: None
Drug: None
Personal:
Living: With Family
Employment: Employed
Family History
Family History: Not Pertinent
Review of Systems
Vital Signs
Temp Pulse Resp BP Pulse Ox
98.6 F 79 18 173/96 97
05/15/23 15:02 05/15/23 15:13 05/15/23 15:13 05/15/23 15:02 05/15/23 15:13
Physical Exam
Physical Exam
Constitutional: No Acute Distress, Comfortable and Non-toxic
Head: Normocephalic
Eyes: Pupils Equal, Pupils Round, No Conjunctival Hemorrhage and Sclera Anicteric
Oral: No Thrush and No Ulcers
Cardiovascular: S1/S2; Negative S3/S4 or Murmur
Pulmonary: Coarse and Non Labored; Negative Wheezes
Gastrointestinal: Soft, Non Tender, Non Distended and Normal Bowel Sounds
Extremities: Negative Edema, Cyanosis or Erythema
Skin: Warm and Dry; Negative Rash or Jaundice
Neurological: Awake and Alert
Psychological: Calm
.
Lab / Diagnostic Study Results
05/15/23 05:51
05/15/23 05:51
Abs Immat Gran (auto) 0.5 10^3/uL (0-0.05) H 05/15/23 05:51
Absolute Neuts (auto) 17.5 10^3/uL (1.4-6.5) H 05/15/23 05:51
Absolute Lymphs (auto) 0.9 10^3/uL (1.2-3.4) L 05/15/23 05:51
Absolute Monos (auto) 0.4 10^3/uL (0.1-0.6) 05/15/23 05:51
Absolute Basos (auto) 0.0 10^3/uL (0-0.2) 05/15/23 05:51
Immature Gran % 2.4 % (0-0.5) H 05/15/23 05:51
Neutrophils % 91.0 % (42.2-75.2) H 05/15/23 05:51
Lymphocytes % 4.6 % (20.5-51.1) L 05/15/23 05:51
Monocytes % 1.8 % (1.7-9.3) 05/15/23 05:51
Eosinophils % 0.0 % (0-6) 05/15/23 05:51
Basophils % 0.2 % (0-2) 05/15/23 05:51
Lactic Acid 0.9 mmol/L (0.7-2.0) 05/14/23 18:57
Procalcitonin < 0.05 ng/ml (0.0-0.25) 05/15/23 09:30
Microbiology Results
Micro:
05/14/23 20:29 Respiratory Culture - Pending
Sputum Gram Stain - Preliminary
05/15/23 09:40 Respiratory Culture - Pending
Sputum Gram Stain - Preliminary
05/14/23 18:57 Blood Culture - Pending
Blood/Venous
05/14/23 18:57 Influenza Types A & B (SERGIO) - Final
Nasal Swab Negative for Influenza A & B, NAAT
Negative results must be combined with clinical observations
and patient history.
Nucleic Acid Amplification test (NAAT)performed on the
[employer] platform.
05/14/23 18:57 Blood Culture - Pending
Blood/Venous
Respiratory Culture Final 05/09/23-914
Few Presumptive Staph aureus MRSA
Isolation Precautions Required
Organism 1 Staph aureus MRSA
1. Staph aureus MRSA
M.I.C. RX
--------- ---
Amoxicillin/Potas. Clavulanate <=4/2 R
Ampicillin >8 R
Clindamycin <=0.5 S
Gentamicin <=4 S
Erythromycin >4 R
Levofloxacin 4 I
Oxacillin >2 R
Tetracycline <=4 S
Trimethoprim/Sulfamethoxazole <=0.5/9.5 S
Vancomycin 1 S
Imaging:
05/15/2023 CT chest (PE study): here is mild left lower lobe and left upper lobe atelectasis versus scarring. There is a solid noncalcified macrolobulated right upper lobe pulmonary mass measuring roughly 6.0 x 6.2 cm. This extends to the pleura.
There is a similar finding in the anterior inferior left upper lobe on image 33 also extending to the pleura. Despite the masslike appearance, considering these were not present 04/15/2023, these are concerning for pneumonia and mucous plugging
Assessment / Plan
Pneumonia; suspected MRSA
- Post-viral (recent influenza infection)
Leukocytosis
Fevers
Malaise
Asthma
Migraines
Crohn's disease with immunosuppression secondary to medications
Fibromyalgia
Mixed connective tissue disease
Colitis
Recommendations:
Continue with vancomycin and zosyn for the present.
-Have considered linezolid, but significant drug drug interactions with Cymbalta which precludes its use.
Await repeat sputum culture.
Pulmonary consult reviewed. Agree that bronchoscopy may be necessary if patient does not clinically improve.
Monitor white count and temperature curve.
Monitor sputum production.
Monitor CXR
Incentive spirometry and Acapella device for sputum mobilization.
Care Review
Plan reviewed with: Physician (Hospitalist)
[2023-05-15] MEDS: MYCELEX TROCHE 10 MG PO ×2 (17:07→22:18)
[2023-05-15] MEDS: NSS IV (19:23)
[2023-05-15] MEDS: MUCINEX 1200 MG PO (20:46)
[2023-05-15] MEDS: REQUIP 1 MG PO (22:18)
[2023-05-15] MEDS: SINGULAIR 10 MG PO (22:18)
[2023-05-15] MEDS: NEURONTIN 600 MG PO (22:18)
[2023-05-15 23:00] VITALS: BP 130/86
[2023-05-16] MEDS: ZOSYN 50 IV ×4 (01:59→19:57)
[2023-05-16] MEDS: NSS IV (05:50)
[2023-05-16] MEDS: VANCOCIN 275 MG IV ×2 (05:50→17:33)
[2023-05-16 07:47] VITALS: BP 158/104
[2023-05-16] MEDS: NEURONTIN 300 MG PO ×2 (08:02→14:00)
[2023-05-16] MEDS: THERAGRAN 1 TABLET PO (08:02)
[2023-05-16] MEDS: CYMBALTA DELAYED RELEASE 60 MG PO (08:02)
[2023-05-16] MEDS: PROTONIX 40 MG PO (08:02)
[2023-05-16] MEDS: DELTASONE 40 MG PO (08:02)
[2023-05-16] MEDS: MYCELEX TROCHE 10 MG PO ×5 (08:02→22:21)
[2023-05-16] MEDS: MUCINEX 1200 MG PO ×2 (08:02→19:57)
[2023-05-16] MEDS: NON-FORMULARY ITEM 30 MG PO ×3 (08:03→22:22)
[2023-05-16] MEDS: HEPARIN 5000 UNITS SC ×2 (08:03→19:57)
[2023-05-16 08:10] LABS: % Basophils 0.2 % (0-2); % Eosinophils 0.1 % (0-6); % Immature Granulocytes 1.8 % (0-0.5); % Lymphocytes 13.5 % (20.5-51.1); % Monocytes 7.5 % (1.7-9.3); % Neutrophils 76.9 % (42.2-75.2); Absolute Basophils 0.1 10^3/uL (0-0.2); Absolute Immature Granulocytes 0.4 10^3/uL (0-0.05); Absolute Lymphocytes 2.8 10^3/uL (1.2-3.4); Absolute Monocytes 1.5 10^3/uL (0.1-0.6); Absolute Neutrophils 15.7 10^3/uL (1.4-6.5); Hemoglobin 11.6 g/dL (12.0-16.0); Mean Corp Hgb Conc. 33.1 g/dL (33.0-37.0); Mean Corpuscular Hgb 29.5 pg (27.0-31.0); Mean Corpuscular Volume 89.1 fL (81.0-99.0); Mean Platelet Volume 8.2 fL (7.4-10.4); Nucleated Red Blood Cells % 0 %; Platelet Count 501 10^3/uL (130-400); Red Blood Cell Count 3.93 10^6/uL (4.20-5.40); Red Cell Dist. Width 12.6 % (11.5-14.5); White Blood Cell Count 20.4 10^3/uL (4.8-10.8)
[2023-05-16] MEDS: DUONEB 3 ML INH ×4 (08:11→19:41)
[2023-05-16] MEDS: SYMBICORT 160/4.5 MCG INHALER 2 PUFF INH ×2 (08:12→19:41)
[2023-05-16 08:31] LABS: Blood Urea Nitrogen 13 mg/dl (7-17); Carbon Dioxide 26 mmol/L (22-30); Chloride 100 mmol/L (98-107); Estimated Creatinine Clearance 96 ml/min; Glucose 86 mg/dl (70-99); Sodium 135 mmol/L (135-145); eGFR > 60.00
--- NOTE | 2023-05-16 08:56 | PHA.VAN.FU ---
Vancomycin Assessment / Plan
- Assessment
Renal Function: Stable
In the past 24 hrs, patient has been: Afebrile
Concomitant Antimicrobials: piperacillin/tazobactam
- Dosing Plan
Continue: continue vancomycin 1250 mg q12h
- Monitoring Plan
Peak Level: 05/16/23 2100
Trough Level: 05/17/23 0530
- Follow Up
Pharmacy will continue to follow.
Vancomycin Follow UP
- -
Patient Age: 52
Patient Sex: Female
Vancomycin Day #: 3
Indication: Pulmonary/Respiratory (SEPSIS)
Requesting Provider: SONIA
Pertinent Antimicrobial Allergies:
Allergies
Sulfa (Sulfonamide Antibiotics) Allergy (Verified 05/14/23 15:46)
Rash, itching
sulfasalazine Allergy (Verified 05/14/23 15:46)
rash, itching
Height / Weight:
Height 5 ft 3 in
Actual Weight 102.9 kg
Pertinent Past Medical History: RECENT HOSP FOR PNA/SEPSIS; BMI ~ 40;Crohns dis w/ immunosupression
- Vital Signs / Lab Results
Temp Pulse Resp BP Pulse Ox
97.9 F 62 16 158/104 95
05/16/23 07:47 05/16/23 08:14 05/16/23 08:14 05/16/23 07:47 05/16/23 08:14
Lab Results - Hematology
05/14/23 05/15/23 05/16/23
15:51 05:51 07:17
WBC 28.9 H 19.2 H 20.4 H
Lab Results - Chemistry
05/14/23 05/15/23 05/16/23
15:51 05:51 07:17
BUN 16 13 13
Creatinine 0.8 0.7 0.8
Estimated Creat Clear 110 96
Albumin 3.7 3.4 L
05/14/23
18:57
Lactic Acid 0.9
Microbiology Results
05/14/23 18:57 Blood Culture - Preliminary
Blood/Venous No Growth in 24 hours- Final report to follow
05/14/23 18:57 Blood Culture - Preliminary
Blood/Venous No Growth in 24 hours- Final report to follow
05/14/23 20:29 Gram Stain - Preliminary
Sputum
05/15/23 09:40 Gram Stain - Preliminary
Sputum
05/14/23 18:57 Influenza Types A & B (SERGIO) - Final
Nasal Swab Negative for Influenza A & B, NAAT
Negative results must be combined with clinical observations
and patient history.
Nucleic Acid Amplification test (NAAT)performed on the
[employer] platform.
[2023-05-16] MEDS: NON-FORMULARY ITEM 100 MG PO (09:45)
--- NOTE | 2023-05-16 10:43 | W.PN.ID1 ---
Date of Service
Date of Service: May 16, 2023
Today's Communication
Continue antibiotics.
Assessment / Plan
Pneumonia; (suspected MRSA)
- Post-viral PNA (recent influenza infection)
Leukocytosis
Fevers
Malaise
Asthma
Migraines
Crohn's disease with immunosuppression secondary to medications
Fibromyalgia
Mixed connective tissue disease
Colitis
Recommendations:
Continue with vancomycin and zosyn for the present.
-Have considered linezolid, but significant drug drug interactions with Cymbalta precludes its use.
Await repeat sputum culture. Cultures preliminary reveal Staph aureus.
Follow Vanco levels.
Pulmonary consult reviewed. Agree that bronchoscopy may be necessary if patient does not clinically improve.
Monitor white count and temperature curve.
Monitor sputum production.
Monitor CXR
Incentive spirometry and Acapella device for sputum mobilization.
����������������������������������������������������������
Chief Complaint
-: Pneumonia
Subjective / Review of Systems
Patient seen and examined. Reports feeling somewhat improved today. Still with some sputum production, noted to be yellowish in color. Denies shortness of breath.
Vital Signs / Physical Exam
Vital Signs
Vital Signs
Temp Pulse Resp BP Pulse Ox
97.9 F 62 16 158/104 95
05/16/23 07:47 05/16/23 08:14 05/16/23 08:14 05/16/23 07:47 05/16/23 08:14
Physical Exam
Constitutional: No Acute Distress, Comfortable and Non-toxic
Eyes: No Conjunctival Hemorrhage and Sclera Anicteric
Cardiovascular: S1/S2; Negative S3/S4 or Murmur
Pulmonary: Coarse and Non Labored; Negative Wheezes
Gastrointestinal: Soft, Non Tender and Non Distended
Neurological: Awake and Alert
Psychological: Calm
Objective Data
Lab Data
Lab Results
05/16/23 07:17
05/16/23 07:17
Estimated Creat Clear 96 ml/min 05/16/23 07:17
Lactic Acid 0.9 mmol/L (0.7-2.0) 05/14/23 18:57
Total Bilirubin 0.5 mg/dl (0.2-1.3) 05/15/23 05:51
AST 37 U/L (14-36) H 05/15/23 05:51
ALT 95 U/L (0-35) H 05/15/23 05:51
Alkaline Phosphatase 86 U/L (38-126) 05/15/23 05:51
Most recent labs reviewed.
CT Scan: Image Reviewed and Report Reviewed
Micro Results:
05/15/23 09:40 Respiratory Culture - Preliminary
Sputum Staphylococcus aureus
Gram Stain - Preliminary
05/14/23 18:57 Blood Culture - Preliminary
Blood/Venous No Growth in 24 hours- Final report to follow
05/14/23 18:57 Blood Culture - Preliminary
Blood/Venous No Growth in 24 hours- Final report to follow
05/14/23 20:29 Respiratory Culture - Pending
Sputum Gram Stain - Preliminary
05/14/23 18:57 Influenza Types A & B (SERGIO) - Final
Nasal Swab Negative for Influenza A & B, NAAT
Negative results must be combined with clinical observations
and patient history.
Nucleic Acid Amplification test (NAAT)performed on the
[employer] platform.
Respiratory Culture Final 05/09/23-15
Few Presumptive Staph aureus MRSA
Isolation Precautions Required
Organism 1 Staph aureus MRSA
1. Staph aureus MRSA
M.I.C. RX
--------- ---
Amoxicillin/Potas. Clavulanate <=4/2 R
Ampicillin >8 R
Clindamycin <=0.5 S
Gentamicin <=4 S
Erythromycin >4 R
Levofloxacin 4 I
Oxacillin >2 R
Tetracycline <=4 S
Trimethoprim/Sulfamethoxazole <=0.5/9.5 S
Vancomycin 1 S
Imaging:
05/15/2023 CT chest (PE study): here is mild left lower lobe and left upper lobe atelectasis versus scarring. There is a solid noncalcified macrolobulated right upper lobe pulmonary mass measuring roughly 6.0 x 6.2 cm. This extends to the pleura.
There is a similar finding in the anterior inferior left upper lobe on image 33 also extending to the pleura. Despite the masslike appearance, considering these were not present 04/15/2023, these are concerning for pneumonia and mucous plugging
--- NOTE | 2023-05-16 12:28 | W.PN.PUL3 ---
Today's Communication / Plan
-
MRSA PNA, on abx
ID following
Repeat CXR in AM
Encouraged more airway clearance, she is using IS/Acapella
Assessment
-
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
recently hospitalized in April for influenza and MRSA and now returns with increased shortness of breath and radiographs that have not improved 05/15/23.
Asthma with acute exacerbation
MRSA PNA
Pulmonary wakkpk-cyu-ihofue pneumonia/atelectasis-will need to follow and possibly even biopsy
Chronic immunosuppression
Sepsis with leukocytosis and fever
Oral ulcers
Leukocytosis
Thrombocytosis
Mild hyperglycemia
Transaminitis
Morbid obesity-BMI 40
Conditions present prior to admission:
Asthma-follows Dr. Pate from allergy
Anxiety.
Migraines.
Crohn's disease.
Chronic immunosuppression.
Fibromyalgia.
Mixed connective tissue disorder.
Immunodeficiency.
Mitochondrial genetic DNA disorder.
Endometriosis.
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
Plan
Respiratory decompensation likely related to ongoing pneumonia and asthma exacerbation
Supplemental oxygen as needed, currently stable on room air
Mucolytic's--using IS and acapella
Nebulizers
Prednisone 40 mg daily with slow taper
Mucus clearing devices
Follow radiographically
Check sputum again
Sputum cultures 05/06 and 05/07/2023 positive for MRSA
Broad-spectrum antibiotics to cover MRSA-will need extended course of oral antibiotics to cover MRSA-previous hospitalization discharged on Augmentin that would not
If radiographs do not improve then bronchoscopy will be indicated-we will follow over the weekend and decide whether bronchoscopy is needed during this hospitalization
Oral and posterior pharyngeal ulcers-May need cultures/biopsy
Repeat CXR in AM
ID eval, reviewed
Monitor blood sugar
Insulin supplementation as needed
DVT prophylaxis-on heparin
GI prophylaxis-on pantoprazole
Nutrition
Early mobilization
Recommend outpatient pulmonary and sleep disorders [id number] PFTs/radiographic follow-up/sleep study
Patient follows with Dr. Pate from allergy-was told by Dr. Pate to make an appointment at [facility] pulmonary-has an appointment in 2 months
Patient has seen Dr. Mendoza in 2017-never followed up
Diagnostic data:
Chest x-ray 07/09/2022-no focal airspace disease
Chest x-ray 04/15/2023-NAD
Chest x-ray 05/04/2023-right upper lobe opacification suspicious for pneumonia
Chest x-ray 05/06/2023-moderate groundglass opacification right upper lobe stable, mild lower lobe atelectasis
Chest x-ray 05/14/2023-persistent right upper lobe opacification consistent with loculated pleural effusion and right upper lobe pneumonia slightly worse compared to previous exam
CT sinus 10/31/2022-paranasal sinuses are clear
CT chest 05/15/2023-no evidence for pulm embolism, bilateral upper lobe masses likely infectious as they are new compared to CT chest 09/27/2021, mucous plugging and pneumonia suspected
Sputum culture 05/07/2023 and 05/06/2023-positive for MRSA
Echocardiogram 04/24/2022-EF 55-60%, mild mitral regurgitation
Subjective Data
-
Date of Service:
Date of Service: May 16, 2023
Chief Complaint: Pulmonary Follow Up
Subjective:
remains stable on room air
able to expectorate more phlegm
Objective Data
Data Reviewed
Vital Signs / I&O / Oxygen:
Vital Signs
Temp Pulse Resp BP Pulse Ox
97.9 F 86 16 158/104 96
05/16/23 07:47 05/16/23 11:36 05/16/23 11:36 05/16/23 07:47 05/16/23 11:36
Intake and Output
05/15/23 05/16/23 05/17/23
06:59 06:59 07:59
Intake Total 2199
Balance 2199
SaO2 96
Physical Exam
General: Comfortable and Other (NAD)
HEENT: Normocephalic, Anicteric and Moist Mucous Membranes
Cardiovascular: S1-S2 and Regular Rhythm
Respiratory: Clear and Non-Labored Respirations
GI: Soft, Non Distended and Non Tender
Neurology: Awake, Alert, Oriented, AO x 3 and No Motor Deficits
Skin: Warm, Dry and Good Color
Labs/Micro/Reports
Lab Data
05/16/23 07:17
05/16/23 07:17
Microbiology
05/14/23 20:29 Sputum Respiratory Culture - Preliminary
Staphylococcus aureus
05/14/23 20:29 Sputum Gram Stain - Preliminary
05/15/23 09:40 Sputum Respiratory Culture - Preliminary
Staphylococcus aureus
05/15/23 09:40 Sputum Gram Stain - Preliminary
05/14/23 18:57 Blood/Venous Blood Culture - Preliminary
No Growth in 24 hours- Final report to follow
05/14/23 18:57 Blood/Venous Blood Culture - Preliminary
No Growth in 24 hours- Final report to follow
05/14/23 18:57 Nasal Swab Influenza Types A & B (SERGIO) - Final
Negative for Influenza A & B, NAAT
Negative results must be combined with clinical observations
and patient history.
Nucleic Acid Amplification test (NAAT)performed on the
[employer] platform.
[2023-05-16] MEDS: TYLENOL 1000 MG PO ×2 (12:35→22:29)
--- NOTE | 2023-05-16 14:59 | W.PN.HOSP.TC ---
Today's Communication/Plan
-
.
Assessment / Plan
Assessment / Plan
Physical Exam
-
General: Well Developed and No Apparent Distress; Negative Respiratory Distress
HEENT: Normocephalic, Atraumatic and Moist Mucous Membranes
Respiratory: Wheezes; Negative Rhonchi or Crackles
Cardiac: Regular Rhythm and S1/S2; Negative Murmur, Rub or Gallop
GI: Soft, Nondistended, Normal Bowel Sounds and Tender (RUQ with rebound tenderness); Negative Organomegaly
Rectal: Deferred by Provider
Musculoskeletal: No Clubbing, No Cyanosis and No Edema
Skin: Warm; Negative Rash
Neuro: Awake, Alert, AO x 3 and Nonfocal/Grossly Intact
Psych: Calm and Intact Judgement/Insight
IMPRESSION:
Presentation with fever, weakness and shortness of breath in the setting of partially treated pneumonia.
Suspects sepsis given positive SIRS.
Multiple oral ulcerations.
CONDITIONS PRIOR TO ADMISSION:
Sjogren's disease
Asthma
Crohn's disease
Fibromyalgia
Mixed connective tissue disease
Restless legs syndrome
Mitochondrial genetic DNase disorder
Endometriosis
History of migraines
Multiple oral ulcerations
Rheumatoid arthritis
GERD
Primary hypertension
Mixed hyperlipidemia
Chronic migraine without aura
Right renal mass s/p partial right nephrectomy
PLAN:
# CAP MRSA PNA
Presentation with fever, weakness and shortness of breath in the setting of partially treated pneumonia.
She is feeling better, less cough, no fevers.
-Patient recently discharged with history of productive cough with hemoptysis that resolved with Vanco/cefepime�completion of Augmentin course.
-Suspect sepsis due to partially treated pneumonia in the setting of immunodeficiency.
-Chest x-ray with persistent bilateral pneumonia.
-Recent sputum culture with MRSA, update sputum culture also MRSA. Follow Vanco levels.
-MRSA precautions.
-Continue Zosyn and vancomycin.
-Blood culture is negative.
-CT chest PE protocol. NO PE, c/w PNA
Appreciate ID & Pulmonary input
#Multiple oral ulcerations.
-Likely due to immunosuppression.
-Continue antibiotics.
-Consider outpatient biopsy.
#Asthma
-Continue DuoNebs, Singulair, and Mucinex.
-Continue Trelegy.
-Corticosteroid taper.
History of migraines
-Continue Ubrelvy as needed
Crohn's disease
-Patient on Stelara.
Fibromyalgia
-Continue duloxetine.
Mixed connective tissue disease
-Continue gabapentin, and baclofen.
Sjogren's disease
-Continue cevimeline
Restless leg syndrome
-Continue ropinirole
Hyponatremia, resolved.
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
GERD
-Continue Protonix.
DVT prophylaxis
-Heparin.
Total time spent to see the patient, examine the patient on the floor, review data and lab results, discuss treatment plan with patient, nursing staff around 55 minutes
Anticipated Discharge: > 48 hours
Subjective/Interval History
-
Date of Service: May 16, 2023
Less cough
No fevers
No chest pain
Objective Data
-
Labs:
Laboratory Results
05/16/23
07:17
WBC 20.4 H
Hgb 11.6 L
Hct 35.0 L
Plt Count 501 H
Sodium 135
Potassium 4.0
Chloride 100
Carbon Dioxide 26
BUN 13
Creatinine 0.8
Glucose 86
Calcium 9.0
Vital Signs:
Vital Signs
Temp Pulse Resp BP Pulse Ox
97.9 F 86 16 158/104 96
05/16/23 07:47 05/16/23 11:36 05/16/23 11:36 05/16/23 07:47 05/16/23 11:36
I&O
05/15/23 05/16/23 05/17/23
06:59 06:59 07:59
Intake Total 2200 / 2200 2019 / 2019
Balance 2200 / 2200 2019
[2023-05-16 15:28] VITALS: BP 148/100
[2023-05-16 16:45] VITALS: BP 152/95
[2023-05-16 21:25] LABS: Vancomycin Peak 29.5 ug/ml (18-26)
[2023-05-16] MEDS: NEURONTIN 600 MG PO (22:21)
[2023-05-16] MEDS: SINGULAIR 10 MG PO (22:21)
[2023-05-16] MEDS: REQUIP 1 MG PO (22:22)
[2023-05-16 23:00] VITALS: BP 145/94
[2023-05-17] MEDS: ZOSYN 50 IV ×2 (01:30→07:19)
[2023-05-17] MEDS: VANCOCIN 275 MG IV ×2 (06:34→16:59)
[2023-05-17] MEDS: HEPARIN SC (07:18)
[2023-05-17] MEDS: MUCINEX 1200 MG PO ×2 (07:18→20:16)
[2023-05-17] MEDS: MYCELEX TROCHE 10 MG PO ×5 (07:18→21:45)
[2023-05-17] MEDS: PROTONIX 40 MG PO (07:18)
[2023-05-17] MEDS: DELTASONE 40 MG PO (07:18)
[2023-05-17] MEDS: CYMBALTA DELAYED RELEASE 60 MG PO (07:18)
[2023-05-17] MEDS: NEURONTIN 300 MG PO ×2 (07:18→15:03)
[2023-05-17] MEDS: NON-FORMULARY ITEM 30 MG PO ×2 (07:18→15:03)
[2023-05-17] MEDS: THERAGRAN 1 TABLET PO (07:19)
[2023-05-17 07:39] VITALS: BP 153/101
[2023-05-17 07:40] LABS: Vancomycin Trough 16.6 ug/ml (5-20)
[2023-05-17] MEDS: SYMBICORT 160/4.5 MCG INHALER 2 PUFF INH ×2 (07:40→19:41)
[2023-05-17] MEDS: DUONEB 3 ML INH ×4 (07:40→19:41)
--- NOTE | 2023-05-17 08:22 | PHA.VAN.FU ---
Vancomycin Assessment / Plan
- Assessment
Renal Function: Stable
WBC's are: Stable (19.2->20.4)
In the past 24 hrs, patient has been: Afebrile
Concomitant Antimicrobials: piperacillin/tazobactam
- Assessment - Therapeutic Drug Monitoring
Extrapolated Cmax (mcg/mL): 33.7
Peak level was drawn: Appropriately
Extrapolated Cmin (mcg/mL): 16.4
Trough Drawn: Appropriately
Levels were drawn: At steady state
Calculated AUC (mcg*h/mL): 580
Calculated ke: 0.0683
Calculated half life (H): 10.1
Calculated Vd (L): 63.08
Calculated Vanc CL (ml/min): 71.82
- Dosing Plan
Continue: vancomycin 1250 mg q12h for now
Dosing Comments: may want to consider 1000 mg q12h since AUC is close to 600
- Monitoring Plan
Level(s) appropriate: Recheck trough at minimum of weekly intervals, Repeat sooner for changes in renal function or clinical status
consider trough level or repeat levels in a day or so to make pt is not accumulating
- Follow Up
Pharmacy will continue to follow.
Vancomycin Follow UP
- -
Patient Age: 52
Patient Sex: Female
Vancomycin Day #: 4
Indication: Pulmonary/Respiratory (SEPSIS)
Requesting Provider: SONIA
Pertinent Antimicrobial Allergies:
Allergies
Sulfa (Sulfonamide Antibiotics) Allergy (Verified 05/14/23 15:46)
Rash, itching
sulfasalazine Allergy (Verified 05/14/23 15:46)
rash, itching
Height / Weight:
Height 5 ft 3 in
Actual Weight 102.9 kg
Pertinent Past Medical History: RECENT HOSP FOR PNA/SEPSIS; BMI ~ 40;Crohns dis w/ immunosupression
- Vital Signs / Lab Results
Temp Pulse Resp BP Pulse Ox
98.4 F 88 16 153/101 98
05/17/23 07:39 05/17/23 07:39 05/17/23 07:39 05/17/23 07:39 05/17/23 07:39
Lab Results - Hematology
05/14/23 05/15/23 05/16/23
15:51 05:51 07:17
WBC 28.9 H 19.2 H 20.4 H
Lab Results - Chemistry
05/14/23 05/15/23 05/16/23
15:51 05:51 07:17
BUN 16 13 13
Creatinine 0.8 0.7 0.8
Estimated Creat Clear 110 96
Albumin 3.7 3.4 L
05/14/23
18:57
Lactic Acid 0.9
Microbiology Results
05/15/23 09:40 Respiratory Culture - Preliminary
Sputum Staphylococcus aureus
Gram Stain - Preliminary
05/14/23 18:57 Blood Culture - Preliminary
Blood/Venous No Growth in 48 hours- Final report to follow
05/14/23 18:57 Blood Culture - Preliminary
Blood/Venous No Growth in 48 hours- Final report to follow
05/14/23 20:29 Respiratory Culture - Preliminary
Sputum Staphylococcus aureus
Gram Stain - Preliminary
Therapeutic Drug Monitoring
Vancomycin Peak 29.5 ug/ml (18-26) H 05/16/23 20:59
Vancomycin Trough 16.6 ug/ml (5-20) 05/17/23 06:24
--- NOTE | 2023-05-17 12:04 | W.PN.HOSP.TC ---
Today's Communication/Plan
-
c/w IV Vancomycin
Reduce prednsione
Assessment / Plan
Assessment / Plan
Physical Exam
-
General: Well Developed and No Apparent Distress; Negative Respiratory Distress
HEENT: Normocephalic, Atraumatic and Moist Mucous Membranes
Respiratory: Less Rhonchi . No wheezes.
Cardiac: Regular Rhythm and S1/S2; Negative Murmur, Rub or Gallop
GI: Soft, Nondistended, Normal Bowel Sounds and Tender (RUQ with rebound tenderness); Negative Organomegaly
Rectal: no rectal bleeding.
Musculoskeletal: No Clubbing, No Cyanosis and No Edema
Skin: Warm; Negative Rash
Neuro: Awake, Alert, AO x 3 and Nonfocal/Grossly Intact
Psych: Calm and Intact Judgement/Insight
IMPRESSION:
Presentation with fever, weakness and shortness of breath in the setting of partially treated pneumonia.
Suspects sepsis given positive SIRS.
Multiple oral ulcerations.
CONDITIONS PRIOR TO ADMISSION:
Sjogren's disease
Asthma
Crohn's disease
Fibromyalgia
Mixed connective tissue disease
Restless legs syndrome
Mitochondrial genetic DNase disorder
Endometriosis
History of migraines
Multiple oral ulcerations
Rheumatoid arthritis
GERD
Primary hypertension
Mixed hyperlipidemia
Chronic migraine without aura
Right renal mass s/p partial right nephrectomy
PLAN:
# CAP MRSA PNA
Presentation with fever, weakness and shortness of breath in the setting of partially treated pneumonia.
She is feeling better, less cough, no fevers.
Repeat chest x ray showed 6.5 cm right pulmonary mass that is slightly improved from before.
-Patient recently discharged with history of productive cough with hemoptysis that resolved with Vanco/cefepime�completion of Augmentin course.
-Sepsis POA due to partially treated pneumonia in the setting of immunodeficiency.
-Chest x-ray with persistent bilateral pneumonia.
-Recent sputum culture with MRSA, update sputum culture also MRSA. Follow Vanco levels.
-MRSA precautions.
-Continue Zosyn and vancomycin.
-Blood culture is negative.
-CT chest PE protocol. NO PE, c/w PNA
Appreciate ID & Pulmonary input
#Multiple oral HSV ulcerations.
-Likely due to immunosuppression. Ulcers are healing now, past time for anti-viral TX.
-Continue antibiotics.
#Asthma
-Continue DuoNebs, Singulair, and Mucinex.
-Continue Trelegy.
- Reduce prednisone to 30 mg and taper slowly.
History of migraines
-Continue Ubrelvy as needed
Crohn's disease
-Patient on Stelara.
Fibromyalgia
-Continue duloxetine.
Mixed connective tissue disease
-Continue gabapentin, and baclofen.
Sjogren's disease
-Continue cevimeline
Restless leg syndrome
-Continue ropinirole
Hyponatremia, resolved.
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
GERD
-Continue Protonix.
DVT prophylaxis
-Heparin.
Total time spent to see the patient, examine the patient on the floor, review data and lab results, discuss treatment plan with patient, nursing staff around 57 minutes
Anticipated Discharge: > 48 hours
Subjective/Interval History
-
Date of Service: May 17, 2023
No chest pain
Less sob/cough
No fevers
Objective Data
-
Vital Signs:
Vital Signs
Temp Pulse Resp BP Pulse Ox
98.4 F 95 16 153/101 95
05/17/23 07:39 05/17/23 11:30 05/17/23 11:30 05/17/23 07:39 05/17/23 11:30
I&O
03/09/24 03/10/24 03/11/24
05:59 06:59 06:59
Intake Total
Balance
[2023-05-17] MEDS: TYLENOL 1000 MG PO ×2 (12:26→18:32)
--- NOTE | 2023-05-17 12:30 | W.PN.PUL3 ---
Today's Communication / Plan
-
Repeat CXR improving, no indication for intervention
She has continued with airway clearance measures/able to expectorate well
ABx per ID team
If continues to improve, can consider transition to PO meds
Encouraged OOB/PT/IS
Assessment
-
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
recently hospitalized in April for influenza and MRSA and now returns with increased shortness of breath and radiographs that have not improved 05/15/23.
Asthma with acute exacerbation
MRSA PNA
Pulmonary [id number]-zqk-ybtqgr pneumonia/atelectasis-will need to follow and possibly even biopsy
Chronic immunosuppression
Sepsis with leukocytosis and fever
Oral ulcers
Leukocytosis
Thrombocytosis
Mild hyperglycemia
Transaminitis
Morbid obesity-BMI 40
Conditions present prior to admission:
Asthma-follows Dr. Pate from allergy
Anxiety.
Migraines.
Crohn's disease.
Chronic immunosuppression.
Fibromyalgia.
Mixed connective tissue disorder.
Immunodeficiency.
Mitochondrial genetic DNA disorder.
Endometriosis.
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
Plan
Respiratory decompensation likely related to ongoing pneumonia and asthma exacerbation
Supplemental oxygen as needed, currently stable on room air
Mucolytic's--using IS and acapella
Nebulizers
Prednisone 40 mg daily with slow taper
Mucus clearing devices
Follow radiographically
Sputum cultures 05/06 and 05/07/2023 positive for MRSA
Broad-spectrum antibiotics to cover MRSA-will need extended course of oral antibiotics to cover MRSA-previous hospitalization discharged on Augmentin that would not
Repeat CXR in AM--improving, may hold off on bronch as she is clearing airway well
ID eval, reviewed
Monitor blood sugar
Insulin supplementation as needed
DVT prophylaxis-on heparin
GI prophylaxis-on pantoprazole
Nutrition
Early mobilization
Recommend outpatient pulmonary and sleep disorders [id number] PFTs/radiographic follow-up/sleep study
Patient follows with Dr. Pate from allergy-was told by Dr. Pate to make an appointment at [facility] pulmonary-has an appointment in 2 months
Patient has seen Dr. Mendoza in 2017-never followed up
Diagnostic data:
Chest x-ray 07/09/2022-no focal airspace disease
Chest x-ray 04/15/2023-NAD
Chest x-ray 05/04/2023-right upper lobe opacification suspicious for pneumonia
Chest x-ray 05/06/2023-moderate groundglass opacification right upper lobe stable, mild lower lobe atelectasis
Chest x-ray 05/14/2023-persistent right upper lobe opacification consistent with loculated pleural effusion and right upper lobe pneumonia slightly worse compared to previous exam
CT sinus 10/31/2022-paranasal sinuses are clear
CT chest 05/15/2023-no evidence for pulm embolism, bilateral upper lobe masses likely infectious as they are new compared to CT chest 09/27/2021, mucous plugging and pneumonia suspected
Sputum culture 05/07/2023 and 05/06/2023-positive for MRSA
Echocardiogram 04/24/2022-EF 55-60%, mild mitral regurgitation
Subjective Data
-
Date of Service:
Date of Service: May 17, 2023
Chief Complaint: Pulmonary Follow Up
Subjective:
better today, stable on room air
still coughing significant amounts
Objective Data
Data Reviewed
Vital Signs / I&O / Oxygen:
Vital Signs
Temp Pulse Resp BP Pulse Ox
98.4 F 95 16 153/101 95
05/17/23 07:39 05/17/23 11:30 05/17/23 11:30 05/17/23 07:39 05/17/23 11:30
Intake and Output
05/16/23 05/17/23 05/18/23
05:59 06:59 06:59
Intake Total
Balance
SaO2 95
Physical Exam
General: Comfortable and Other (NAD)
HEENT: Normocephalic, Anicteric and Moist Mucous Membranes
Cardiovascular: S1-S2 and Regular Rhythm
Respiratory: Clear and Non-Labored Respirations
GI: Soft, Non Distended and Non Tender
Neurology: Awake, Alert, Oriented, AO x 3 and No Motor Deficits
Skin: Warm, Dry and Good Color
Labs/Micro/Reports
Lab Data
05/16/23 07:17
05/16/23 07:17
Microbiology
05/14/23 20:29 Sputum Respiratory Culture - Final
Staph aureus MRSA
05/14/23 20:29 Sputum Gram Stain - Final
05/15/23 09:40 Sputum Respiratory Culture - Final
Staph aureus MRSA
05/15/23 09:40 Sputum Gram Stain - Final
05/14/23 18:57 Blood/Venous Blood Culture - Preliminary
No Growth in 48 hours- Final report to follow
05/14/23 18:57 Blood/Venous Blood Culture - Preliminary
No Growth in 48 hours- Final report to follow
05/14/23 18:57 Nasal Swab Influenza Types A & B (SERGIO) - Final
Negative for Influenza A & B, NAAT
Negative results must be combined with clinical observations
and patient history.
Nucleic Acid Amplification test (NAAT)performed on the
[employer] platform.
--- NOTE | 2023-05-17 13:18 | W.PN.ID1 ---
Date of Service
Date of Service: May 17, 2023
Today's Communication
Continue vancomycin. Discontinue further Zosyn.
Assessment / Plan
Pneumonia; (MRSA)
- Post-viral PNA (recent influenza infection)
Leukocytosis
Fevers
Malaise
Asthma
Migraines
Crohn's disease with immunosuppression secondary to medications
Fibromyalgia
Mixed connective tissue disease
Colitis
Recommendations:
Continue with vancomycin. Discontinue further Zosyn.
-Have considered linezolid, but significant drug drug interactions with Cymbalta precludes its use.
Follow Vanco levels.
Case discussed with Pulmonary. No plans for bronchoscopy given the improvement in CXR.
Monitor white count and temperature curve.
Monitor sputum production.
Monitor CXR
Incentive spirometry and Acapella device for sputum mobilization.
����������������������������������������������������������
Chief Complaint
-: Pneumonia
Subjective / Review of Systems
Patient seen and examined. Overall reports feeling improved. Still with cough. Breathing is less labored.
Vital Signs / Physical Exam
Vital Signs
Vital Signs
Temp Pulse Resp BP Pulse Ox
98.4 F 95 16 153/101 95
05/17/23 07:39 05/17/23 11:30 05/17/23 11:30 05/17/23 07:39 05/17/23 11:30
Physical Exam
Constitutional: No Acute Distress, Comfortable and Non-toxic
Eyes: Sclera Anicteric
Cardiovascular: S1/S2; Negative S3/S4
Pulmonary: Rhonchi (Few; scattered), Coarse and Non Labored
Gastrointestinal: Soft, Non Distended and Normal Bowel Sounds
Neurological: Awake and Alert
Psychological: Calm
Objective Data
Lab Data
Lab Results
05/16/23 07:17
05/16/23 07:17
Estimated Creat Clear 96 ml/min 05/16/23 07:17
Lactic Acid 0.9 mmol/L (0.7-2.0) 05/14/23 18:57
Total Bilirubin 0.5 mg/dl (0.2-1.3) 05/15/23 05:51
AST 37 U/L (14-36) H 05/15/23 05:51
ALT 95 U/L (0-35) H 05/15/23 05:51
Alkaline Phosphatase 86 U/L (38-126) 05/15/23 05:51
Most recent labs reviewed.
Chest X-Ray: Image Reviewed and Report Reviewed
Micro Results:
05/14/23 20:29 Respiratory Culture - Final
Sputum Staph aureus MRSA
Gram Stain - Final
05/15/23 09:40 Respiratory Culture - Final
Sputum Staph aureus MRSA
Gram Stain - Final
05/14/23 18:57 Blood Culture - Preliminary
Blood/Venous No Growth in 48 hours- Final report to follow
05/14/23 18:57 Blood Culture - Preliminary
Blood/Venous No Growth in 48 hours- Final report to follow
05/14/23 18:57 Influenza Types A & B (SERGIO) - Final
Nasal Swab Negative for Influenza A & B, NAAT
Negative results must be combined with clinical observations
and patient history.
Nucleic Acid Amplification test (NAAT)performed on the
[employer] platform.
Respiratory Culture Final 05/09/23-914
Few Presumptive Staph aureus MRSA
Isolation Precautions Required
Organism 1 Staph aureus MRSA
1. Staph aureus MRSA
M.I.C. RX
--------- ---
Amoxicillin/Potas. Clavulanate <=4/2 R
Ampicillin >8 R
Clindamycin <=0.5 S
Gentamicin <=4 S
Erythromycin >4 R
Levofloxacin 4 I
Oxacillin >2 R
Tetracycline <=4 S
Trimethoprim/Sulfamethoxazole <=0.5/9.5 S
Vancomycin 1 S
Imaging:
05/17/2023 CXR (2 view): A 6.5 cm right upper lobe pulmonary mass is slightly improved when compared to the prior study and more con Film personally viewed.
05/15/2023 CT chest (PE study): here is mild left lower lobe and left upper lobe atelectasis versus scarring. There is a solid noncalcified macrolobulated right upper lobe pulmonary mass measuring roughly 6.0 x 6.2 cm. This extends to the pleura.
There is a similar finding in the anterior inferior left upper lobe on image 33 also extending to the pleura. Despite the masslike appearance, considering these were not present 04/15/2023, these are concerning for pneumonia and mucous plugging
Care Review
Plan reviewed with: Physician (Pulmonary)
[2023-05-17 15:45] VITALS: BP 169/93
[2023-05-17 16:11] LABS: Glucose - Point of Care 134 mg/dl (70-99)
[2023-05-17] MEDS: ZOFRAN 4 MG IV (16:45)
[2023-05-17] MEDS: HEPARIN 5000 UNITS SC (20:15)
[2023-05-17] MEDS: NEURONTIN 600 MG PO (21:44)
[2023-05-17] MEDS: SINGULAIR 10 MG PO (21:45)
[2023-05-17] MEDS: REQUIP 1 MG PO (21:45)
[2023-05-17] MEDS: NON-FORMULARY ITEM 1 MG PO (21:45)
[2023-05-17 23:30] VITALS: BP 154/96
[2023-05-18] MEDS: VANCOCIN 275 MG IV ×2 (05:58→17:31)
[2023-05-18 06:49] LABS: Hemoglobin 11.8 g/dL (12.0-16.0); Mean Corp Hgb Conc. 32.8 g/dL (33.0-37.0); Mean Corpuscular Volume 91.6 fL (81.0-99.0); Mean Platelet Volume 8.2 fL (7.4-10.4); Platelet Count 479 10^3/uL (130-400); Red Blood Cell Count 3.93 10^6/uL (4.20-5.40); Red Cell Dist. Width 12.7 % (11.5-14.5); White Blood Cell Count 15.4 10^3/uL (4.8-10.8)
[2023-05-18 07:00] VITALS: BP 152/93
[2023-05-18 07:13] LABS: ALT (SGPT) 56 U/L (0-35); AST (SGOT) 22 U/L (14-36); Albumin 3.2 g/dl (3.5-5.0); Alkaline Phosphatase 86 U/L (38-126); Blood Urea Nitrogen 13 mg/dl (7-17); Calcium 9.4 mg/dl (8.4-10.2); Carbon Dioxide 32 mmol/L (22-30); Chloride 97 mmol/L (98-107); Estimated Creatinine Clearance 86 ml/min; Glucose 74 mg/dl (70-99); Magnesium 2.1 mg/dl (1.6-2.3); Potassium 4.4 mmol/L (3.5-5.1); Sodium 137 mmol/L (135-145); Total Bilirubin 0.4 mg/dl (0.2-1.3); Total Protein 5.8 g/dl (6.3-8.2); eGFR > 60.00
[2023-05-18] MEDS: SYMBICORT 160/4.5 MCG INHALER 2 PUFF INH ×2 (07:46→19:37)
[2023-05-18] MEDS: DUONEB 3 ML INH ×4 (07:46→19:37)
[2023-05-18] MEDS: CYMBALTA DELAYED RELEASE 60 MG PO (08:33)
[2023-05-18] MEDS: MUCINEX 1200 MG PO ×2 (08:33→20:20)
[2023-05-18] MEDS: MYCELEX TROCHE 10 MG PO ×5 (08:33→21:28)
[2023-05-18] MEDS: PROTONIX 40 MG PO (08:33)
[2023-05-18] MEDS: THERAGRAN 1 TABLET PO (08:33)
[2023-05-18] MEDS: NEURONTIN 300 MG PO ×2 (08:33→15:00)
[2023-05-18] MEDS: DELTASONE 30 MG PO (08:33)
[2023-05-18] MEDS: NON-FORMULARY ITEM 30 MG PO ×3 (08:34→21:29)
[2023-05-18] MEDS: HEPARIN 5000 UNITS SC ×2 (08:34→20:21)
--- NOTE | 2023-05-18 08:50 | W.PN.PUL3 ---
Today's Communication / Plan
-
Repeat CXR improving, no indication for intervention
She has continued with airway clearance measures/able to expectorate well
ABx per ID team
Continue with PO prednisone (currently at 30mg daily) and reduce by 10mg every 4th day until off
Encouraged OOB/PT/IS
Assessment
-
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
recently hospitalized in April for influenza and MRSA and now returns with increased shortness of breath and radiographs that have not improved 05/15/23.
Asthma with acute exacerbation (chronically on Tezspire)
MRSA PNA
Pulmonary masses in postero-lateral RUL and anterior PENNY - new-likely pneumonia/atelectasis-will need to follow and possibly even biopsy
Chronic immunosuppression
Sepsis with leukocytosis and fever
Oral ulcers
Leukocytosis
Thrombocytosis
Mild hyperglycemia
Transaminitis
Morbid obesity-BMI 40
Conditions present prior to admission:
Asthma-follows Dr. Pate from allergy
Anxiety.
Migraines.
Crohn's disease.
Chronic immunosuppression.
Fibromyalgia.
Mixed connective tissue disorder.
Immunodeficiency.
Mitochondrial genetic DNA disorder.
Endometriosis.
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
Plan
Respiratory decompensation likely related to ongoing pneumonia and asthma exacerbation
Supplemental oxygen as needed, currently stable on room air
Mucolytic's--using IS and acapella
Nebulizers via DuoNebs QID
Prednisone daily with slow taper --> currently on 30mg daily (started 05/18/2023 after being on 40mg daily on 05/13 - 05/16)
Mucus clearing devices
Follow radiographically --> She will need repeat CT chest in 4 to 6 weeks to follow pneumonia/pulmonary masses to resolution
Sputum cultures 05/06 and 05/07/2023 positive for MRSA
Broad-spectrum antibiotics to cover MRSA-will need extended course of oral antibiotics to cover MRSA-previous hospitalization discharged on Augmentin that would not
Repeat CXR from AM on 05/16 shows improvement with better visualization of the left diaphragm, and improvement of the right upper lobe pulmonary mass. Hold off on bronch for now as she is clearing airway well
hailey Cotto reviewed
Monitor blood sugar
Insulin supplementation as needed
DVT prophylaxis-on heparin 5000U q12hr --> Raise to 5000 units q8hr unless there is a risk of bleeding
GI prophylaxis-n/a --> She does take PPI which is a home medication, and we will continue this
Nutrition
Early mobilization
Recommend outpatient pulmonary and sleep disorders [id number] PFTs/radiographic follow-up/sleep study
Patient follows with Dr. Pate from allergy-was told by Dr. Pate to make an appointment at [facility] pulmonary-has an appointment in 2 months
Patient had previously seen Dr. Mendoza in 2017-never followed up --> We will arrange for outpatient follow-up with Dr. Mendoza s/p discharge.
There is a high level of medical decision making with an exacerbation of chronic illness which poses a threat to the patient's life or bodily function, and I personally reviewed prior documentation from her hospitalization from 05/06/202305/08/2023;
I also reviewed her prior sputum cultures from both 05/06+ 05/07/2023; and reviewed her last echocardiogram from 04/2022.
Diagnostic data:
Chest x-ray 07/09/2022-no focal airspace disease
Chest x-ray 04/15/2023-NAD
Chest x-ray 05/04/2023-right upper lobe opacification suspicious for pneumonia
Chest x-ray 05/06/2023-moderate groundglass opacification right upper lobe stable, mild lower lobe atelectasis
Chest x-ray 05/14/2023-persistent right upper lobe opacification consistent with loculated pleural effusion and right upper lobe pneumonia slightly worse compared to previous exam
Chest XR 05/17/2023:
1).There is 6.5 cm right upper lobe pulmonary mass, slightly improved when compared with the prior study and most consistent with rounded pneumonia as seen on the 05/15/2019 4T chest
2). There is minimal residual left perihilar interstitial pneumonia
CT sinus 10/31/2022-paranasal sinuses are clear
CT chest 05/15/2023-no evidence for pulm embolism, bilateral upper lobe masses likely infectious as they are new compared to CT chest 09/27/2021, mucous plugging and pneumonia suspected
Sputum culture 05/07/2023 and 05/06/2023-positive for MRSA
Echocardiogram 04/24/2022-EF 55-60%, mild mitral regurgitation
Subjective Data
-
Date of Service:
Date of Service: May 18, 2023
Chief Complaint: Pulmonary Follow Up
Subjective:
Patient seen this morning. Feels better today but still feeling short of breath with exertion. She is on room air. Pulling 2 L on incentive spirometer. She denies chest pain, headache, fevers or chills.
Review of Systems
General: Other (Negative unless mentioned above)
Objective Data
Data Reviewed
Vital Signs / I&O / Oxygen:
Vital Signs
Temp Pulse Resp BP Pulse Ox
99.0 F 94 18 152/93 98
05/18/23 07:00 05/18/23 07:48 05/18/23 07:48 05/18/23 07:00 05/18/23 07:48
Intake and Output
05/17/23 05/18/23 05/19/23
06:59 06:59 06:59
Intake Total 3120 / 3120
Balance 3120 / 3120
SaO2 98
Physical Exam
General: Comfortable and Other (NAD)
HEENT: Normocephalic, Anicteric and Moist Mucous Membranes
Cardiovascular: S1-S2, Regular Rhythm and Peripheral Edema (negative)
Respiratory: Wheeze (Bilaterally (faint)), Crackles (negative), Rhonchi (negative) and Non-Labored Respirations
GI: Soft, Non Distended and Non Tender
Neurology: AO x 3 and No Motor Deficits
Skin: Warm and Dry
Labs/Micro/Reports
Lab Data
05/18/23 05:40
05/18/23 05:40
Microbiology
05/14/23 18:57 Blood/Venous Blood Culture - Preliminary
No Growth in 72 hours- Final report to follow
05/14/23 18:57 Blood/Venous Blood Culture - Preliminary
No Growth in 72 hours- Final report to follow
05/14/23 20:29 Sputum Respiratory Culture - Final
Staph aureus MRSA
05/14/23 20:29 Sputum Gram Stain - Final
05/15/23 09:40 Sputum Respiratory Culture - Final
Staph aureus MRSA
05/15/23 09:40 Sputum Gram Stain - Final
[2023-05-18] MEDS: TYLENOL 1000 MG PO ×2 (10:23→23:15)
--- NOTE | 2023-05-18 10:36 | PHA.VAN.FU ---
Vancomycin Assessment / Plan
- Assessment
Renal Function: Stable
WBC's are: Trending Down
In the past 24 hrs, patient has been: Afebrile
- Dosing Plan
Continue: vanc 1250 mg q12h
- Monitoring Plan
Trough Level: 05/18 0530, to check for accumulation
- Follow Up
Pharmacy will continue to follow.
Vancomycin Follow UP
- -
Patient Age: 52
Patient Sex: Female
Vancomycin Day #: 5
Indication: Pulmonary/Respiratory (SEPSIS)
Requesting Provider: Dr Pinto/ Dr Ferris
Pertinent Antimicrobial Allergies:
Allergies
Sulfa (Sulfonamide Antibiotics) Allergy (Verified 05/14/23 15:46)
Rash, itching
sulfasalazine Allergy (Verified 05/14/23 15:46)
rash, itching
Height / Weight:
Height 5 ft 3 in
Actual Weight 102.9 kg
Pertinent Past Medical History: BMI ~ 40;Crohns dis w/ immunosupression
- Vital Signs / Lab Results
Temp Pulse Resp BP Pulse Ox
99.0 F 94 18 152/93 98
05/18/23 07:00 05/18/23 07:48 05/18/23 07:48 05/18/23 07:00 05/18/23 07:48
Lab Results - Hematology
05/16/23 05/18/23
07:17 05:40
WBC 20.4 H 15.4 H
Lab Results - Chemistry
05/16/23 05/18/23
07:17 05:40
BUN 13 13
Creatinine 0.8 0.9
Estimated Creat Clear 96 86
Albumin 3.2 L
Microbiology Results
05/14/23 18:57 Blood Culture - Preliminary
Blood/Venous No Growth in 72 hours- Final report to follow
05/14/23 18:57 Blood Culture - Preliminary
Blood/Venous No Growth in 72 hours- Final report to follow
05/14/23 20:29 Respiratory Culture - Final
Sputum Staph aureus MRSA
Gram Stain - Final
05/15/23 09:40 Respiratory Culture - Final
Sputum Staph aureus MRSA
Gram Stain - Final
Therapeutic Drug Monitoring
Vancomycin Peak 29.5 ug/ml (18-26) H 05/16/23 20:59
Vancomycin Trough 16.6 ug/ml (5-20) 05/17/23 06:24
[2023-05-18 15:00] VITALS: BP 137/91
--- NOTE | 2023-05-18 15:19 | W.PN.ID1 ---
Date of Service
Date of Service: May 18, 2023
Today's Communication
Continue abx.
Assessment / Plan
Pneumonia; (MRSA)
- Post-viral PNA (recent influenza infection)
Leukocytosis
Fevers
Malaise
Asthma
Migraines
Crohn's disease with immunosuppression secondary to medications
Fibromyalgia
Mixed connective tissue disease
Colitis
Recommendations:
Continue with vancomycin.
-Have considered linezolid, but significant drug drug interactions with Cymbalta precludes its use.
Follow Vanco levels.
Case previously discussed with Pulmonary. No plans for bronchoscopy given the improvement in CXR.
Monitor white count and temperature curve.
Monitor sputum production.
Monitor CXR
Incentive spirometry and Acapella device for sputum mobilization.
Will likely need course of IV vancomycin follow D/C. Would treat until 05/27/23.
Will discuss with Clinical Pharmacist regarding optimal dose of vancomycin.
����������������������������������������������������������
Chief Complaint
-: Pneumonia (MRSA)
Subjective / Review of Systems
Patient seen and examined. Reports some decrease in sputum production. Denies shortness of breath.
Review of Systems: No Fever and No Chills
Vital Signs / Physical Exam
Vital Signs
Vital Signs
Temp Pulse Resp BP Pulse Ox
99.0 F 101 18 152/93 97
05/18/23 07:00 05/18/23 15:17 05/18/23 15:17 05/18/23 07:00 05/18/23 15:17
Physical Exam
Constitutional: No Acute Distress, Comfortable and Non-toxic
Eyes: Sclera Anicteric
Cardiovascular: S1/S2; Negative S3/S4
Pulmonary: Coarse and Non Labored; Negative Wheezes or Rales
Gastrointestinal: Soft, Non Tender and Non Distended
Extremities: Negative Edema, Cyanosis or Erythema
Neurological: Awake and Alert
Psychological: Calm
Objective Data
Lab Data
Lab Results
05/18/23 05:40
05/18/23 05:40
Estimated Creat Clear 86 ml/min 05/18/23 05:40
Lactic Acid 0.9 mmol/L (0.7-2.0) 05/14/23 18:57
Total Bilirubin 0.4 mg/dl (0.2-1.3) 05/18/23 05:40
AST 22 U/L (14-36) 05/18/23 05:40
ALT 56 U/L (0-35) H 05/18/23 05:40
Alkaline Phosphatase 86 U/L (38-126) 05/18/23 05:40
Most recent labs reviewed.
Micro Results:
05/14/23 18:57 Blood Culture - Preliminary
Blood/Venous No Growth in 72 hours- Final report to follow
05/14/23 18:57 Blood Culture - Preliminary
Blood/Venous No Growth in 72 hours- Final report to follow
05/14/23 20:29 Respiratory Culture - Final
Sputum Staph aureus MRSA
Gram Stain - Final
05/15/23 09:40 Respiratory Culture - Final
Sputum Staph aureus MRSA
Gram Stain - Final
05/14/23 18:57 Influenza Types A & B (SERGIO) - Final
Nasal Swab Negative for Influenza A & B, NAAT
Negative results must be combined with clinical observations
and patient history.
Nucleic Acid Amplification test (NAAT)performed on the
[employer] platform.
Respiratory Culture Final 05/09/23-914
Few Presumptive Staph aureus MRSA
Isolation Precautions Required
Organism 1 Staph aureus MRSA
1. Staph aureus MRSA
M.I.C. RX
--------- ---
Amoxicillin/Potas. Clavulanate <=4/2 R
Ampicillin >8 R
Clindamycin <=0.5 S
Gentamicin <=4 S
Erythromycin >4 R
Levofloxacin 4 I
Oxacillin >2 R
Tetracycline <=4 S
Trimethoprim/Sulfamethoxazole <=0.5/9.5 S
Vancomycin 1 S
Imaging:
05/17/2023 CXR (2 view): A 6.5 cm right upper lobe pulmonary mass is slightly improved when compared to the prior study and more con Film personally viewed.
05/15/2023 CT chest (PE study): here is mild left lower lobe and left upper lobe atelectasis versus scarring. There is a solid noncalcified macrolobulated right upper lobe pulmonary mass measuring roughly 6.0 x 6.2 cm. This extends to the pleura.
There is a similar finding in the anterior inferior left upper lobe on image 33 also extending to the pleura. Despite the masslike appearance, considering these were not present 04/15/2023, these are concerning for pneumonia and mucous plugging
--- NOTE | 2023-05-18 16:39 | W.PN.HOSP.TC ---
Today's Communication/Plan
-
IV vancomycin
Prednisone taper
Assessment / Plan
Assessment / Plan
IMPRESSION:
Presentation with fever, weakness and shortness of breath in the setting of partially treated pneumonia.
Suspects sepsis given positive SIRS.
Multiple oral ulcerations.
CONDITIONS PRIOR TO ADMISSION:
Sjogren's disease
Asthma
Crohn's disease
Fibromyalgia
Mixed connective tissue disease
Restless legs syndrome
Mitochondrial genetic DNase disorder
Endometriosis
History of migraines
Multiple oral ulcerations
Rheumatoid arthritis
GERD
Primary hypertension
Mixed hyperlipidemia
Chronic migraine without aura
Right renal mass s/p partial right nephrectomy
PLAN:
# CAP MRSA PNA
Presentation with fever, weakness and shortness of breath in the setting of partially treated pneumonia.
She is feeling better, less cough, no fevers.
Repeat chest x ray showed 6.5 cm right pulmonary mass that is slightly improved from before.
-Patient recently discharged with history of productive cough with hemoptysis that resolved with Vanco/cefepime�completion of Augmentin course.
- Sepsis ruled out
Stable respiratory status with no requirements for supplemental oxygen.
CT scan of the chest negative for pulmonary embolism consistent with round right upper lobe and lingular infiltrate.
Initiated on broad-spectrum antibiotics vancomycin/Zosyn
Repeated sputum culture positive for MRSA.
Clinically improved
Follow-up chest x-ray with improved right upper lobe infiltrate.
Continue IV vancomycin for now.
ID following.
#Multiple oral HSV ulcerations.
-Likely due to immunosuppression. Ulcers are healing now, past time for anti-viral TX.
-Continue antibiotics.
#Asthma
-Continue DuoNebs, Singulair, and Mucinex.
-Continue Trelegy.
-Continue prednisone taper by 10 mg every 4 days. Currently on 30 mg starting 05/17:
History of migraines
-Continue Ubrelvy as needed
Crohn's disease
-Patient on Stelara.
Fibromyalgia
-Continue duloxetine.
Mixed connective tissue disease
-Continue gabapentin, and baclofen.
Sjogren's disease
-Continue cevimeline
Restless leg syndrome
-Continue ropinirole
Hyponatremia, resolved.
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
GERD
-Continue Protonix.
DVT prophylaxis
-Heparin.
Anticipated Discharge: 24 - 48 hours
Subjective/Interval History
-
Date of Service: May 18, 2023
Objective Data
-
Labs:
Laboratory Results
05/18/23
05:40
WBC 15.4 H
Hgb 11.8 L
Hct 36.0 L
Plt Count 479 H
Sodium 137
Potassium 4.4
Chloride 97 L
Carbon Dioxide 32 H
BUN 13
Creatinine 0.9
Glucose 74
Calcium 9.4
Total Bilirubin 0.4
AST 22
ALT 56 H
Alkaline Phosphatase 86
Vital Signs:
Vital Signs
Temp Pulse Resp BP Pulse Ox
99.0 F 101 18 152/93 97
05/18/23 07:00 05/18/23 15:17 05/18/23 15:17 05/18/23 07:00 05/18/23 15:17
I&O
05/17/23 05/18/23 05/19/23
06:59 06:59 06:59
Intake Total 3120 / 3120
Balance 3120 / 3120
Physical Exam
-
General: Well Developed and No Apparent Distress
HEENT: Normocephalic, Atraumatic and Moist Mucous Membranes
Respiratory: Clear to Auscultation
Cardiac: Regular Rhythm and S1/S2; Negative Murmur, Rub or Gallop
GI: Soft, Nontender, Nondistended and Normal Bowel Sounds; Negative Organomegaly
Rectal: Deferred by Provider
Musculoskeletal: No Clubbing, No Cyanosis and No Edema
Skin: Negative Rash
Neuro: Nonfocal/Grossly Intact
[2023-05-18] MEDS: REQUIP 1 MG PO (21:28)
[2023-05-18] MEDS: NEURONTIN 600 MG PO (21:28)
[2023-05-18] MEDS: SINGULAIR 10 MG PO (21:29)
[2023-05-18 23:02] VITALS: BP 158/91
[2023-05-19] MEDS: VANCOCIN 275 MG IV (05:58)
[2023-05-19 06:07] LABS: % Basophils 0.2 % (0-2); % Eosinophils 0.3 % (0-6); % Immature Granulocytes 1.4 % (0-0.5); % Lymphocytes 21.4 % (20.5-51.1); % Monocytes 7.9 % (1.7-9.3); % Neutrophils 68.8 % (42.2-75.2); Absolute Immature Granulocytes 0.2 10^3/uL (0-0.05); Absolute Lymphocytes 2.8 10^3/uL (1.2-3.4); Absolute Neutrophils 9.1 10^3/uL (1.4-6.5); Hematocrit 35.2 % (37.0-47.0); Hemoglobin 11.5 g/dL (12.0-16.0); Mean Corp Hgb Conc. 32.7 g/dL (33.0-37.0); Mean Corpuscular Hgb 29.6 pg (27.0-31.0); Mean Corpuscular Volume 90.7 fL (81.0-99.0); Mean Platelet Volume 8.1 fL (7.4-10.4); Nucleated Red Blood Cells % 0 %; Platelet Count 471 10^3/uL (130-400); Red Blood Cell Count 3.88 10^6/uL (4.20-5.40); Red Cell Dist. Width 12.9 % (11.5-14.5); White Blood Cell Count 13.2 10^3/uL (4.8-10.8)
[2023-05-19 06:24] LABS: Vancomycin Trough 17.9 ug/ml (5-20)
[2023-05-19 06:37] LABS: Blood Urea Nitrogen 14 mg/dl (7-17); Calcium 9.2 mg/dl (8.4-10.2); Carbon Dioxide 30 mmol/L (22-30); Chloride 100 mmol/L (98-107); Estimated Creatinine Clearance 86 ml/min; Glucose 77 mg/dl (70-99); Potassium 4.4 mmol/L (3.5-5.1); Sodium 133 mmol/L (135-145); eGFR > 60.00
[2023-05-19] MEDS: DUONEB 3 ML INH ×4 (07:17→20:12)
[2023-05-19] MEDS: SYMBICORT 160/4.5 MCG INHALER 2 PUFF INH ×2 (07:17→20:12)
[2023-05-19 07:32] VITALS: BP 150/93
[2023-05-19] MEDS: NON-FORMULARY ITEM 30 MG PO ×3 (07:35→21:09)
[2023-05-19] MEDS: THERAGRAN 1 TABLET PO (07:36)
[2023-05-19] MEDS: MYCELEX TROCHE 10 MG PO ×5 (07:36→21:08)
[2023-05-19] MEDS: DELTASONE 30 MG PO (07:37)
[2023-05-19] MEDS: NEURONTIN 300 MG PO ×2 (07:37→14:02)
[2023-05-19] MEDS: PROTONIX 40 MG PO (07:37)
[2023-05-19] MEDS: MUCINEX 1200 MG PO ×2 (07:38→21:07)
[2023-05-19] MEDS: CYMBALTA DELAYED RELEASE 60 MG PO (07:38)
[2023-05-19] MEDS: HEPARIN 5000 UNITS SC ×2 (07:38→23:00)
--- NOTE | 2023-05-19 08:12 | W.PN.PUL3 ---
Today's Communication / Plan
-
She continues to improve respiratory holman � no longer wheezing today
PICC line inserted today and she will go home tomorrow with an extended course of IV vancomycin
She has continued with airway clearance measures/able to expectorate well
ABx per ID team
Continue with PO prednisone (currently at 30mg daily) and reduce by 10mg every 4th day until off
Encouraged OOB/PT/IS
As long as patient is not hypoxic tomorrow and she remains stable with regards to her shortness of breath similar to today, then she is cleared to go home from pulmonary standpoint. I will arrange for outpatient follow-up.
Assessment
-
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
recently hospitalized in April for influenza and MRSA and now returns with increased shortness of breath and radiographs that have not improved 05/15/23.
Asthma with acute exacerbation (chronically on Tezspire)
MRSA PNA
Pulmonary masses in postero-lateral RUL and anterior PENNY - new-likely pneumonia/atelectasis-will need to follow and possibly even biopsy
Chronic immunosuppression
Sepsis with leukocytosis and fever
Oral ulcers
Leukocytosis
Thrombocytosis
Mild hyperglycemia
Transaminitis
Morbid obesity-BMI 40
Conditions present prior to admission:
Asthma-follows Dr. Pate from allergy
Anxiety.
Migraines.
Crohn's disease.
Chronic immunosuppression.
Fibromyalgia.
Mixed connective tissue disorder.
Immunodeficiency.
Mitochondrial genetic DNA disorder.
Endometriosis.
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
Plan
Patient has markedly improved just between yesterday and today as she is not wheezing anymore and feels like she can finally take a deep breath without any chest tightness.
Respiratory decompensation was likely related to ongoing pneumonia and asthma exacerbation
Supplemental oxygen as needed, currently stable on room air
Mucolytics--using IS and acapella (pulling about 2L)
Nebulizers via DuoNebs QID
Prednisone daily with slow taper --> currently on 30mg daily (started 05/18/2023 after being on 40mg daily from 05/13 - 05/16) --> slow taper --> reduce by 10mg every 4th day until off and we will follow up with her in office
Mucus clearing devices
Follow radiographically --> She will need repeat CT chest in 4 to 6 weeks to follow pneumonia/pulmonary masses to resolution
Sputum cultures 05/06 and 05/07/2023 positive for MRSA
Broad-spectrum antibiotics to cover MRSA-will need extended course of IV vanco to cover MRSA-previous hospitalization discharged on Augmentin that would not--> PICC line inserted today and she will be DC'd home tomorrow
Repeat CXR from AM on 05/16 shows improvement with better visualization of the left diaphragm, and improvement of the right upper lobe pulmonary mass. Hold off on bronch for now as she is clearing airway well
ID hailey hemphill reviewed
Monitor blood sugar
Insulin supplementation as needed
DVT prophylaxis-on heparin 5000U q12hr --> Raise to 5000 units q8hr unless there is a risk of bleeding
GI prophylaxis-n/a --> She does take PPI which is a home medication, and we will continue this
Nutrition
Early mobilization
Recommend outpatient pulmonary and sleep disorders [id number] PFTs/radiographic follow-up/sleep study
Patient follows with Dr. Pate from allergy-was told by Dr. Pate to make an appointment at [facility] pulmonary-has an appointment in 2 months
Patient had previously seen Dr. Mendoza in 2017-never followed up --> We will arrange for outpatient follow-up with Dr. Mendoza s/p discharge.
There is a moderate level of medical decision making with an exacerbation of chronic illness; I personally reviewed prior documentation from her hospitalization from 05/06/202305/08/2023; I also reviewed her prior sputum cultures from both 05/06+
05/07/2023; and reviewed her last echocardiogram from 04/2022.
Diagnostic data:
Chest x-ray 07/09/2022-no focal airspace disease
Chest x-ray 04/15/2023-NAD
Chest x-ray 05/04/2023-right upper lobe opacification suspicious for pneumonia
Chest x-ray 05/06/2023-moderate groundglass opacification right upper lobe stable, mild lower lobe atelectasis
Chest x-ray 05/14/2023-persistent right upper lobe opacification consistent with loculated pleural effusion and right upper lobe pneumonia slightly worse compared to previous exam
Chest XR 05/17/2023:
1).There is 6.5 cm right upper lobe pulmonary mass, slightly improved when compared with the prior study and most consistent with rounded pneumonia as seen on the 05/15/2019 4T chest
2). There is minimal residual left perihilar interstitial pneumonia
CT sinus 10/31/2022-paranasal sinuses are clear
CT chest 05/15/2023-no evidence for pulm embolism, bilateral upper lobe masses likely infectious as they are new compared to CT chest 09/27/2021, mucous plugging and pneumonia suspected
Sputum culture 05/07/2023 and 05/06/2023-positive for MRSA
Echocardiogram 04/24/2022-EF 55-60%, mild mitral regurgitation
Subjective Data
-
Date of Service:
Date of Service: May 19, 2023
Chief Complaint: Pulmonary Follow Up
Subjective:
Patient seen and evaluated this morning. She feels much better with improved shortness of breath. She can walk around her room without having any difficulty. She denies chest pain, headache, fevers or chills.
Review of Systems
General: Other (Negative unless mentioned above)
Objective Data
Data Reviewed
Vital Signs / I&O / Oxygen:
Vital Signs
Temp Pulse Resp BP Pulse Ox
98.6 F 86 16 150/93 98
05/19/23 07:32 05/19/23 07:32 05/19/23 07:32 05/19/23 07:32 05/19/23 08:43
Intake and Output
05/18/23 05/19/23 05/20/23
06:59 06:59 06:59
Intake Total 3120 / 3120 4170 / 4170
Balance 3120 / 3120 4170 / 4170
SaO2 98
Physical Exam
General: Comfortable and Other (NAD)
HEENT: Normocephalic, Anicteric and Moist Mucous Membranes
Cardiovascular: S1-S2 and Peripheral Edema (negative)
Respiratory: Clear, Wheeze (negative), Crackles (negative), Rhonchi (negative) and Non-Labored Respirations
GI: Soft, Non Distended and Non Tender
Neurology: AO x 3 and No Motor Deficits
Skin: Warm and Dry
Labs/Micro/Reports
Lab Data
05/19/23 05:40
05/19/23 05:40
Microbiology
05/14/23 18:57 Blood/Venous Blood Culture - Preliminary
No Growth in 4 days- Final report to follow
05/14/23 18:57 Blood/Venous Blood Culture - Preliminary
No Growth in 4 days- Final report to follow
05/14/23 20:29 Sputum Respiratory Culture - Final
Staph aureus MRSA
05/14/23 20:29 Sputum Gram Stain - Final
05/15/23 09:40 Sputum Respiratory Culture - Final
Staph aureus MRSA
05/15/23 09:40 Sputum Gram Stain - Final
--- NOTE | 2023-05-19 08:58 | PHA.VAN.FU ---
Vancomycin Assessment / Plan
- Assessment
Renal Function: Stable
WBC's are: Trending Down
In the past 24 hrs, patient has been: Afebrile
- Assessment - Trough Based Monitoring
Trough Value: 17.9
Level Today was: Appropriate
Level Comments: level drawn ~12H after 8th maintenance dose
- Dosing Plan
Adjust Regimen to: Vanc 1000mg Q12H starting at 1800
New Regimen Predicts: AUC (487), Peak (27.8), Trough (14.2)
Trough essentially stable compared to Cmin but previously calculated AUC is at upper end of normal range
Equations used to calculate AUC may overestimate AUC and patient can still achieve therapeutic AUC at lower dose that would minimize risk for toxicity
- Monitoring Plan
No level(s) ordered at this time: consider levels in next few days
- Follow Up
Pharmacy will continue to follow.
Vancomycin Follow UP
- -
Patient Age: 52
Patient Sex: Female
Vancomycin Day #: 6
Indication: Pulmonary/Respiratory
Requesting Provider: Dr Pinto/ Dr Ferris
Pertinent Antimicrobial Allergies:
Sulfa (Sulfonamide Antibiotics) - Rash, itching
sulfasalazine Allergy - rash, itching
Height / Weight:
Height 5 ft 3 in
Actual Weight 102.9 kg
Pertinent Past Medical History: BMI ~40
- Vital Signs / Lab Results
Temp Pulse Resp BP Pulse Ox
98.6 F 86 16 150/93 98
05/19/23 07:32 05/19/23 07:32 05/19/23 07:32 05/19/23 07:32 05/19/23 08:43
Lab Results - Hematology
05/16/23 05/18/23 05/19/23
07:17 05:40 05:40
WBC 20.4 H 15.4 H 13.2 H
Lab Results - Chemistry
05/16/23 05/18/23 05/19/23
07:17 05:40 05:40
BUN 13 13 14
Creatinine 0.8 0.9 0.9
Estimated Creat Clear 96 86 86
Albumin 3.2 L
Microbiology Results
05/14/23 18:57 Blood Culture - Preliminary
Blood/Venous No Growth in 4 days- Final report to follow
05/14/23 18:57 Blood Culture - Preliminary
Blood/Venous No Growth in 4 days- Final report to follow
05/14/23 20:29 Respiratory Culture - Final
Sputum Staph aureus MRSA
Gram Stain - Final
05/15/23 09:40 Respiratory Culture - Final
Sputum Staph aureus MRSA
Gram Stain - Final
Therapeutic Drug Monitoring
Vancomycin Peak 29.5 ug/ml (18-26) H 05/16/23 20:59
Vancomycin Trough 17.9 ug/ml (5-20) 05/19/23 05:40
[2023-05-19] MEDS: NON-FORMULARY ITEM 100 MG PO (09:40)
[2023-05-19] MEDS: TYLENOL 1000 MG PO (11:15)
--- NOTE | 2023-05-19 11:57 | CM ---
Addendum entered by Shannan Jeff 05/19/23 16:02:
PICC info and chest xray faxed to Eileen at [facility]
Addendum entered by Shannan Jeff 05/19/23 15:52:
Spoke with Eileen at [facility]
Pt insurance covers 70% of IV infusion. Pt would be responsible for 30% of cost
Pt has a deductible of $9100
Pt informed of cost
Rx faxed to Eileen at [facility]
Plan - home with [facility] -
pt needs teaching prior to d/c and medication to be delivered to home
Original Note:
CM following for d/c planning
Pt will be d/c'ed with IV antibiotics when medically ready
Discussed with pt - no preference to agency
Spoke with Eileen at [facility] [phone]
Clinical info and Face sheet faxed to [phone] for gaviria check
[2023-05-19 15:21] VITALS: BP 129/82
[2023-05-19] MEDS: VANCOCIN 200 IV (17:02)
--- NOTE | 2023-05-19 17:25 | W.PN.HOSP.TC ---
Today's Communication/Plan
-
IV antibiotics/vancomycin
PICC line placed
Arrangements for outpatient infusion.
Steroid taper
Assessment / Plan
Assessment / Plan
IMPRESSION:
Presentation with fever, weakness and shortness of breath in the setting of partially treated pneumonia.
Suspects sepsis given positive SIRS.
Multiple oral ulcerations.
CONDITIONS PRIOR TO ADMISSION:
Sjogren's disease
Asthma
Crohn's disease
Fibromyalgia
Mixed connective tissue disease
Restless legs syndrome
Mitochondrial genetic DNase disorder
Endometriosis
History of migraines
Multiple oral ulcerations
Rheumatoid arthritis
GERD
Primary hypertension
Mixed hyperlipidemia
Chronic migraine without aura
Right renal mass s/p partial right nephrectomy
PLAN:
# CAP MRSA PNA
Presentation with fever, weakness and shortness of breath in the setting of partially treated pneumonia.
She is feeling better, less cough, no fevers.
Repeat chest x ray showed 6.5 cm right pulmonary mass that is slightly improved from before.
-Patient recently discharged with history of productive cough with hemoptysis that resolved with Vanco/cefepime�completion of Augmentin course.
- Sepsis ruled out
Stable respiratory status with no requirements for supplemental oxygen.
CT scan of the chest negative for pulmonary embolism consistent with round right upper lobe and lingular infiltrate.
Initiated on broad-spectrum antibiotics vancomycin/Zosyn
Repeated sputum culture positive for MRSA.
Clinically improved
Follow-up chest x-ray with improved right upper lobe infiltrate.
Continue IV vancomycin with plan to complete course of antibiotic treatment at home. PICC line placed. Infusion company set up pending.
ID following.
#Multiple oral HSV ulcerations.
-Likely due to immunosuppression. Ulcers are healing now, past time for anti-viral TX.
-Continue antibiotics.
#Asthma
-Continue DuoNebs, Singulair, and Mucinex.
-Continue Trelegy.
-Continue prednisone taper by 10 mg every 4 days. Currently on 30 mg starting 05/17:
History of migraines
-Continue Ubrelvy as needed
Crohn's disease
-Patient on Stelara.
Fibromyalgia
-Continue duloxetine.
Mixed connective tissue disease
-Continue gabapentin, and baclofen.
Sjogren's disease
-Continue cevimeline
Restless leg syndrome
-Continue ropinirole
Hyponatremia, resolved.
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
GERD
-Continue Protonix.
DVT prophylaxis
-Heparin.
Anticipated Discharge: Within 24 hours
Subjective/Interval History
-
Date of Service: May 19, 2023
Objective Data
-
Labs:
Laboratory Results
05/19/23
05:40
WBC 13.2 H
Hgb 11.5 L
Hct 35.2 L
Plt Count 471 H
Sodium 133 L
Potassium 4.4
Chloride 100
Carbon Dioxide 30
BUN 14
Creatinine 0.9
Glucose 77
Calcium 9.2
Vital Signs:
Vital Signs
Temp Pulse Resp BP Pulse Ox
98.5 F 97 20 129/82 98
05/19/23 15:21 05/19/23 15:23 05/19/23 15:23 05/19/23 15:21 05/19/23 15:23
I&O
05/18/23 05/19/23 05/20/23
06:59 06:59 06:59
Intake Total 3120 / 3120 4170 / 4170
Balance 3120 / 3120 4170 / 4170
Physical Exam
-
General: Well Developed and No Apparent Distress
HEENT: Normocephalic, Atraumatic and Moist Mucous Membranes
Respiratory: Clear to Auscultation
Cardiac: Regular Rhythm and S1/S2; Negative Murmur, Rub or Gallop
GI: Soft, Nontender, Nondistended and Normal Bowel Sounds; Negative Organomegaly
Rectal: Deferred by Provider
Musculoskeletal: No Clubbing, No Cyanosis and No Edema
Skin: Negative Rash
Neuro: Awake, Alert, Oriented, AO x 3 and Nonfocal/Grossly Intact
[2023-05-19] MEDS: SINGULAIR 10 MG PO (21:08)
[2023-05-19] MEDS: NEURONTIN 600 MG PO (21:08)
[2023-05-19] MEDS: REQUIP 1 MG PO (21:08)
[2023-05-19 23:00] VITALS: BP 125/81
[2023-05-20] MEDS: TYLENOL 1000 MG PO (03:24)
[2023-05-20] MEDS: VANCOCIN 200 IV (06:08)
[2023-05-20] MEDS: FLUSH (NSS) 2 FLUSH IV (06:08)
[2023-05-20 07:00] VITALS: BP 135/90
[2023-05-20] MEDS: DUONEB 3 ML INH ×2 (07:46→11:27)
[2023-05-20] MEDS: SYMBICORT 160/4.5 MCG INHALER 2 PUFF INH (07:47)
[2023-05-20] MEDS: HEPARIN 5000 UNITS SC (07:48)
[2023-05-20] MEDS: MYCELEX TROCHE 10 MG PO ×3 (07:48→14:00)
[2023-05-20] MEDS: CYMBALTA DELAYED RELEASE 60 MG PO (07:48)
[2023-05-20] MEDS: NEURONTIN 300 MG PO ×2 (07:48→14:00)
[2023-05-20] MEDS: MUCINEX 1200 MG PO (07:48)
[2023-05-20] MEDS: PROTONIX 40 MG PO (07:48)
[2023-05-20] MEDS: NON-FORMULARY ITEM 30 MG PO (07:49)
[2023-05-20] MEDS: THERAGRAN 1 TABLET PO (07:50)
[2023-05-20] MEDS: DELTASONE 30 MG PO (07:52)
--- NOTE | 2023-05-20 08:30 | PHA.VAN.FU ---
Vancomycin Assessment / Plan
- Assessment
Renal Function: No New Labs Today
In the past 24 hrs, patient has been: Afebrile
- Dosing Plan
Continue: Vanc 1000mg Q12H (adjusted 05/18)
- Monitoring Plan
No level(s) ordered at this time: consider levels in next few days
- Follow Up
Pharmacy will continue to follow.
Vancomycin Follow UP
- -
Patient Age: 52
Patient Sex: Female
Vancomycin Day #: 7
Indication: Pulmonary/Respiratory
Requesting Provider: Dr Pinto/ Dr Ferris
Pertinent Antimicrobial Allergies:
Sulfa (Sulfonamide Antibiotics) - Rash, itching
sulfasalazine Allergy - rash, itching
Height / Weight:
Height 5 ft 3 in
Actual Weight 102.9 kg
Pertinent Past Medical History: BMI ~40
- Vital Signs / Lab Results
Temp Pulse Resp BP Pulse Ox
98.4 F 99 16 125/81 99
05/19/23 23:00 05/20/23 07:51 05/20/23 07:51 05/19/23 23:00 05/20/23 07:51
Lab Results - Hematology
05/18/23 05/19/23
05:40 05:40
WBC 15.4 H 13.2 H
Lab Results - Chemistry
05/18/23 05/19/23
05:40 05:40
BUN 13 14
Creatinine 0.9 0.9
Estimated Creat Clear 86 86
Albumin 3.2 L
Microbiology Results
05/14/23 18:57 Blood Culture - Final
Blood/Venous No Growth - Final Report
05/14/23 18:57 Blood Culture - Final
Blood/Venous No Growth - Final Report
Therapeutic Drug Monitoring
Vancomycin Peak 29.5 ug/ml (18-26) H 05/16/23 20:59
Vancomycin Trough 17.9 ug/ml (5-20) 05/19/23 05:40
--- NOTE | 2023-05-20 09:37 | W.PN.PUL3 ---
Today's Communication / Plan
-
She has markedly improved and is awaiting discharge home today.
PICC line inserted yesterday and she will go home today with an extended course of IV vancomycin
She has continued with airway clearance measures/able to expectorate well
ABx per ID team
Continue with PO prednisone (currently at 30mg daily) and reduce by 10mg every 4th day until off
Encouraged OOB/PT/IS
Patient being prepared for discharge home. Pulmonary service will now sign off. Thank you for allowing us to be involved in the care of this patient. Please reconsult if there are any additional questions/concerns, or if respiratory status
deteriorates.
Assessment
-
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
recently hospitalized in April for influenza and MRSA and now returns with increased shortness of breath and radiographs that have not improved 05/15/23.
Asthma with acute exacerbation (chronically on Tezspire)
MRSA PNA
Pulmonary masses in postero-lateral RUL and anterior PENNY - new-likely pneumonia/atelectasis-will need to follow and possibly even biopsy
Chronic immunosuppression
Sepsis with leukocytosis and fever
Oral ulcers
Leukocytosis
Thrombocytosis
Mild hyperglycemia
Transaminitis
Morbid obesity-BMI 40
Conditions present prior to admission:
Asthma-follows Dr. Pate from allergy
Anxiety.
Migraines.
Crohn's disease.
Chronic immunosuppression.
Fibromyalgia.
Mixed connective tissue disorder.
Immunodeficiency.
Mitochondrial genetic DNA disorder.
Endometriosis.
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
Plan
Patient has markedly improved just between yesterday and today as she is not wheezing anymore and feels like she can finally take a deep breath without any chest tightness.
Respiratory decompensation was likely related to ongoing pneumonia and asthma exacerbation
Supplemental oxygen as needed, currently stable on room air
Mucolytics--using IS and acapella (pulling about 2L)
Nebulizers via DuoNebs QID
Prednisone daily with slow taper --> currently on 30mg daily (started 05/18/2023 after being on 40mg daily from 05/13 - 05/16) --> slow taper --> reduce by 10mg every 4th day until off and we will follow up with her in office
Mucus clearing devices
Follow radiographically --> She will need repeat CT chest in 4 to 6 weeks to follow pneumonia/pulmonary masses to resolution
Sputum cultures 05/06 and 05/07/2023 positive for MRSA
Broad-spectrum antibiotics to cover MRSA-will need extended course of IV vanco to cover MRSA-previous hospitalization discharged on Augmentin that would not--> PICC line inserted today and she will be DC'd home tomorrow
Repeat CXR from AM on 05/16 shows improvement with better visualization of the left diaphragm, and improvement of the right upper lobe pulmonary mass. Hold off on bronch for now as she is clearing airway well
ID eval, recs reviewed
Monitor blood sugar
Insulin supplementation as needed
DVT prophylaxis-on heparin 5000 units q8hr
GI prophylaxis-n/a --> She does take PPI which is a home medication, and we will continue this
Nutrition
Early mobilization
Recommend outpatient pulmonary and sleep disorders [id number] PFTs/radiographic follow-up/sleep study
Patient follows with Dr. Pate from allergy-was told by Dr. Pate to make an appointment at [facility] pulmonary-has an appointment in 2 months
Patient had previously seen Dr. Mendoza in 2017-never followed up --> We will arrange for outpatient follow-up with Dr. Mendoza s/p discharge.
Patient being prepared for discharge home. Pulmonary service will now sign off. Thank you for allowing us to be involved in the care of this patient. Please reconsult if there are any additional questions/concerns, or if respiratory status
deteriorates.
There is a moderate level of medical decision making with an exacerbation of chronic illness; I personally reviewed prior documentation from her hospitalization from 05/06/202305/08/2023; I also reviewed her prior sputum cultures from both 05/06+
05/07/2023; and reviewed her last echocardiogram from 04/2022.
Diagnostic data:
Chest x-ray 07/09/2022-no focal airspace disease
Chest x-ray 04/15/2023-NAD
Chest x-ray 05/04/2023-right upper lobe opacification suspicious for pneumonia
Chest x-ray 05/06/2023-moderate groundglass opacification right upper lobe stable, mild lower lobe atelectasis
Chest x-ray 05/14/2023-persistent right upper lobe opacification consistent with loculated pleural effusion and right upper lobe pneumonia slightly worse compared to previous exam
Chest XR 05/17/2023:
1).There is 6.5 cm right upper lobe pulmonary mass, slightly improved when compared with the prior study and most consistent with rounded pneumonia as seen on the 05/15/2019 4T chest
2). There is minimal residual left perihilar interstitial pneumonia
CT sinus 10/31/2022-paranasal sinuses are clear
CT chest 05/15/2023-no evidence for pulm embolism, bilateral upper lobe masses likely infectious as they are new compared to CT chest 09/27/2021, mucous plugging and pneumonia suspected
Sputum culture 05/07/2023 and 05/06/2023-positive for MRSA
Echocardiogram 04/24/2022-EF 55-60%, mild mitral regurgitation
Subjective Data
-
Date of Service:
Date of Service: May 20, 2023
Chief Complaint: Pulmonary Follow Up
Subjective:
Patient doing well today. Awaiting discharge home. Home infusion set up. No acute events reported overnight. Denies headache, worsening shortness of breath, fevers or chills.
Review of Systems
General: Other (12 point ROS performed and is negative unless mentioned above.)
Objective Data
Data Reviewed
Vital Signs / I&O / Oxygen:
Vital Signs
Temp Pulse Resp BP Pulse Ox
97.6 F 87 16 135/90 99
05/20/23 07:00 05/20/23 11:32 05/20/23 11:32 05/20/23 07:00 05/20/23 07:51
Intake and Output
05/19/23 05/20/23 05/21/23
06:59 06:59 06:59
Intake Total 4170 / 4170 1879
Balance 4170 / 4170 1879
SaO2 99
Physical Exam
General: Comfortable and Other (NAD)
HEENT: Normocephalic, Anicteric and Moist Mucous Membranes
Cardiovascular: S1-S2 and Peripheral Edema (negative)
Respiratory: Clear, Wheeze (negative), Crackles (negative), Rhonchi (negative) and Non-Labored Respirations
GI: Soft, Non Distended and Non Tender
Neurology: AO x 3 and No Motor Deficits
Skin: Warm and Dry
Labs/Micro/Reports
Lab Data
05/19/23 05:40
05/19/23 05:40
Microbiology
05/14/23 18:57 Blood/Venous Blood Culture - Final
No Growth - Final Report
05/14/23 18:57 Blood/Venous Blood Culture - Final
No Growth - Final Report
05/14/23 20:29 Sputum Respiratory Culture - Final
Staph aureus MRSA
05/14/23 20:29 Sputum Gram Stain - Final
05/15/23 09:40 Sputum Respiratory Culture - Final
Staph aureus MRSA
05/15/23 09:40 Sputum Gram Stain - Final
--- NOTE | 2023-05-20 11:01 | W.PN.ID1 ---
Date of Service
Date of Service: May 20, 2023
Today's Communication
Continue vanco
Assessment / Plan
Pneumonia; (MRSA)
- Post-viral PNA (recent influenza infection)
Leukocytosis
Fevers
Malaise
Asthma
Migraines
Crohn's disease with immunosuppression secondary to medications
Fibromyalgia
Mixed connective tissue disease
Colitis
Recommendations:
Continue with vancomycin through 05/27/23.
-Have considered linezolid, but significant drug drug interactions with Cymbalta precludes its use.
Follow Vanco levels.
Incentive spirometry and Acapella device for sputum mobilization.
����������������������������������������������������������
Chief Complaint
-: Pneumonia (MRSA)
Subjective / Review of Systems
Patient seen and examined. Reports feeling well. Breathing is comfortable.
Review of Systems: No Fever, No Chills and Sputum Production
Vital Signs / Physical Exam
Vital Signs
Vital Signs
Temp Pulse Resp BP Pulse Ox
97.6 F 99 16 135/90 99
05/20/23 07:00 05/20/23 07:51 05/20/23 07:51 05/20/23 07:00 05/20/23 07:51
Physical Exam
Constitutional: No Acute Distress, Comfortable and Non-toxic
Eyes: Sclera Anicteric
Cardiovascular: S1/S2; Negative S3/S4 or Murmur
Pulmonary: Coarse and Non Labored; Negative Wheezes, Rales or Rhonchi
Gastrointestinal: Non Tender, Non Distended and Normal Bowel Sounds
Neurological: Awake and Alert
Psychological: Calm
Objective Data
Lab Data
Lab Results
05/19/23 05:40
05/19/23 05:40
Estimated Creat Clear 86 ml/min 05/19/23 05:40
Lactic Acid 0.9 mmol/L (0.7-2.0) 05/14/23 18:57
Total Bilirubin 0.4 mg/dl (0.2-1.3) 05/18/23 05:40
AST 22 U/L (14-36) 05/18/23 05:40
ALT 56 U/L (0-35) H 05/18/23 05:40
Alkaline Phosphatase 86 U/L (38-126) 05/18/23 05:40
Most recent labs reviewed.
Micro Results:
05/14/23 18:57 Blood Culture - Final
Blood/Venous No Growth - Final Report
05/14/23 18:57 Blood Culture - Final
Blood/Venous No Growth - Final Report
05/14/23 20:29 Respiratory Culture - Final
Sputum Staph aureus MRSA
Gram Stain - Final
05/15/23 09:40 Respiratory Culture - Final
Sputum Staph aureus MRSA
Gram Stain - Final
05/14/23 18:57 Influenza Types A & B (SERGIO) - Final
Nasal Swab Negative for Influenza A & B, NAAT
Negative results must be combined with clinical observations
and patient history.
Nucleic Acid Amplification test (NAAT)performed on the
Epoxy platform.
Respiratory Culture Final 05/09/23-15
Few Presumptive Staph aureus MRSA
Isolation Precautions Required
Organism 1 Staph aureus MRSA
1. Staph aureus MRSA
M.I.C. RX
--------- ---
Amoxicillin/Potas. Clavulanate <=4/2 R
Ampicillin >8 R
Clindamycin <=0.5 S
Gentamicin <=4 S
Erythromycin >4 R
Levofloxacin 4 I
Oxacillin >2 R
Tetracycline <=4 S
Trimethoprim/Sulfamethoxazole <=0.5/9.5 S
Vancomycin 1 S
Imaging:
05/17/2023 CXR (2 view): A 6.5 cm right upper lobe pulmonary mass is slightly improved when compared to the prior study and more con Film personally viewed.
05/15/2023 CT chest (PE study): here is mild left lower lobe and left upper lobe atelectasis versus scarring. There is a solid noncalcified macrolobulated right upper lobe pulmonary mass measuring roughly 6.0 x 6.2 cm. This extends to the pleura.
There is a similar finding in the anterior inferior left upper lobe on image 33 also extending to the pleura. Despite the masslike appearance, considering these were not present 04/15/2023, these are concerning for pneumonia and mucous plugging
Care Review
Plan reviewed with: Physician (Hospitalist)
[2023-05-20] MEDS: NON-FORMULARY ITEM 100 MG PO (12:10)
--- NOTE | 2023-05-20 12:32 | W.DS.TRANS ---
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
-
Discharge Instructions:
Discharge Diagnosis/Procedures MRSA pneumonia.
Diet Regular
Instructions:
Stand-Alone Forms:
Changes to Home Medications: Yes
Discharge Medications:
DC Medications w/original date entered in [employer]
acetaminophen 500 mg tablet (Tylenol Extra Strength) 1,000 mg PO Q6HPRN PRN mild pain/fever 09/23/19
albuterol sulfate 90 mcg/actuation aerosol inhaler 2 puff inhalation R Q4HPRN PRN shortness of breath 09/23/19
multivitamin 1 ea PO DAILY Supplement 09/23/19
baclofen 10 mg tablet 10 mg PO TID PRN muscle spasms 01/01/22
duloxetine 60 mg capsule,delayed release (Cymbalta) 60 mg PO DAILY Pain 01/01/22
fluticasone fur. 200 mcg-umeclid 62.5 mcg-vilant 25 mcg inhalat.powder (Trelegy Ellipta) 1 inh inhalation R DAILY Lung/breathing issues 01/01/22
pantoprazole 40 mg tablet,delayed release (Protonix) 40 mg PO DAILY Gastrointestinal issue 01/01/22
ropinirole 0.5 mg tablet 1 mg PO HS Neurological Condition 01/01/22
ubrogepant 100 mg tablet (Ubrelvy) 100 mg PO ONCE PRN migraines 01/01/22
ustekinumab 130 mg/26 mL intravenous solution (Stelara) 130 mg IV .[id number] Autoimmune disorder 01/01/22
albuterol sulfate 2.5 mg/3 mL (0.083 %) solution for nebulization 2.5 mg inhalation R Q4 PRN sob/wheezing 05/06/23
cevimeline 30 mg capsule 30 mg PO TID dry mouth 05/06/23
gabapentin 300 mg capsule 300 mg PO BID@0800,1400 Neurological Condition 05/06/23
gabapentin 300 mg capsule 600 mg PO HS Neurological Condition 05/06/23
montelukast 10 mg tablet 10 mg PO HS Allergies 05/06/23
tezepelumab-ekko 210 mg/1.91 mL (110 mg/mL) subcutaneous syringe (Tezspire) 0 mg SC MONTHLY asthma 05/06/23
prednisone 10 mg tablet See Rx Instructions .Route .COMPLEX #30 tabs 05/08/23
guaifenesin 600 mg tablet, extended release 12 hr 1,200 mg PO Q12 #60 tabs 05/20/23
vancomycin 1 gram/200 mL in 0.9 % sod. chloride intravenous piggyback 1 g (200 mL) IV Q12H #14 mL 05/20/23
Home Medication Changes
Antibiotic and steroid taper
Pending Results: No
--- NOTE | 2023-05-20 13:24 | CM ---
Spoke with Eileen from [facility] in AM - planning to do pt teaching this afternoon at bedside
Clarified medication order - faxed updated script to [phone]
Spoke with pt - aware of teaching plan
Will have ride at d/c
Plan - home with [facility] for IV meds when medically stable
[2023-05-20] MEDS: NON-FORMULARY ITEM PO (14:14)
== END 2023-05-20 15:15 | disposition home or self-care (01) | DRG 178 ==
LOC: 3 WEST ACU 20:22
PROVIDERS: Emergency Medicine; Internal Medicine; Physician Assistant; ADMITTING PHYSICIAN Hospitalist; ATTENDING PHYSICIAN Internal Medicine; CONSULT PHYSICIAN Internal Medicine Critical Care Medicine; CONSULT PHYSICIAN Internal Medicine Infectious Disease; EMERGENCY PHYSICIAN Student in an Organized Health Care Education/Training Program; FAMILY PHYSICIAN Nurse Practitioner Adult Health
DX: J15.212 Pneumonia due to Methicillin resistant Staphylococcus aureus (principal); D84.821 Immunodeficiency due to drugs; K50.90 Crohn's disease, unspecified, without complications; M35.1 Other overlap syndromes; Z68.41 Body mass index [BMI] 40.0-44.9, adult; J98.11 Atelectasis; M35.00 Sjogren syndrome, unspecified; M79.7 Fibromyalgia; G25.81 Restless legs syndrome; G43.909 Migraine, unspecified, not intractable, without status migrainosus; M06.9 Rheumatoid arthritis, unspecified; I10 Essential (primary) hypertension; E78.5 Hyperlipidemia, unspecified; E66.01 Morbid (severe) obesity due to excess calories
CPT/HCPCS: 71045; 71046; 71275; 80048; 80053; 80202; 81003; 82962; 83605; 83735; 84145; 85025; 85027; 87040; 87070; 87147; 87186; 87205; 87502; 87811; 94640; 96365; 99285; Q9967

== ENCOUNTER → 2023-06-11 12:25 | Outpatient (REF) | payer OTHER, SELFPAY | LOC: RAD 12:25 | PROVIDERS: ATTENDING PHYSICIAN Nurse Practitioner Family | DX: Z87.01 Personal history of pneumonia (recurrent) (principal) | CPT/HCPCS: 71046 ==

== ENCOUNTER → 2023-06-16 07:25 | Outpatient (REF) | payer OTHER, SELFPAY | LOC: RAD 07:25 | PROVIDERS: ATTENDING PHYSICIAN Nurse Practitioner Family; FAMILY PHYSICIAN Nurse Practitioner Adult Health | DX: Z87.01 Personal history of pneumonia (recurrent) (principal); R91.8 Other nonspecific abnormal finding of lung field | CPT/HCPCS: 71250 ==

== ENCOUNTER → 2023-07-02 13:21 | Outpatient (REF) | payer OTHER, SELFPAY | LOC: WDC 13:21 | PROVIDERS: ATTENDING PHYSICIAN Obstetrics & Gynecology; FAMILY PHYSICIAN Nurse Practitioner Adult Health | DX: Z12.31 Encounter for screening mammogram for malignant neoplasm of breast (principal) | CPT/HCPCS: 77063; 77067 ==

== ENCOUNTER 2023-07-07 06:17 | Outpatient (RCR) | payer OTHER, SELFPAY | END 2023-07-07 23:59 | disposition home or self-care (01) | LOC: RPT 06:17 | PROVIDERS: ATTENDING PHYSICIAN Physician Assistant; FAMILY PHYSICIAN Internal Medicine | DX: M17.12 Unilateral primary osteoarthritis, left knee (principal); M54.12 Radiculopathy, cervical region; M43.02 Spondylolysis, cervical region; M51.34 Other intervertebral disc degeneration, thoracic region; M54.16 Radiculopathy, lumbar region; M47.816 Spondylosis without myelopathy or radiculopathy, lumbar region; Z73.6 Limitation of activities due to disability; R26.89 Other abnormalities of gait and mobility; R26.2 Difficulty in walking, not elsewhere classified; M62.81 Muscle weakness (generalized) | CPT/HCPCS: 97110; 97163 ==

== ENCOUNTER 2023-08-06 06:33 | Outpatient (RCR) | payer OTHER, SELFPAY | END 2023-08-06 23:59 | disposition home or self-care (01) | LOC: RPT 06:33 | PROVIDERS: ATTENDING PHYSICIAN Physician Assistant; FAMILY PHYSICIAN Internal Medicine | DX: M17.12 Unilateral primary osteoarthritis, left knee (principal); M54.12 Radiculopathy, cervical region; M51.34 Other intervertebral disc degeneration, thoracic region; M54.16 Radiculopathy, lumbar region; M47.816 Spondylosis without myelopathy or radiculopathy, lumbar region; R26.2 Difficulty in walking, not elsewhere classified | CPT/HCPCS: 97010; 97110; 97112 ==

== ENCOUNTER → 2023-08-14 12:27 | Outpatient (REF) | payer OTHER, SELFPAY | LOC: RAD 12:27 | PROVIDERS: ATTENDING PHYSICIAN Physical Medicine & Rehabilitation; FAMILY PHYSICIAN Nurse Practitioner Adult Health | DX: M51.36 Other intervertebral disc degeneration, lumbar region (principal); M50.30 Other cervical disc degeneration, unspecified cervical region | CPT/HCPCS: 72050; 72110 ==

== ENCOUNTER → 2023-09-21 11:29 | Outpatient (REF) | payer OTHER, SELFPAY | LOC: MRI 11:29 | PROVIDERS: ATTENDING PHYSICIAN Orthopaedic Surgery Orthopaedic Surgery of the Spine; FAMILY PHYSICIAN Nurse Practitioner Adult Health | DX: M48.02 Spinal stenosis, cervical region (principal); M48.062 Spinal stenosis, lumbar region with neurogenic claudication | CPT/HCPCS: 72141; 72148 ==

== ENCOUNTER 2023-09-30 06:09 | Inpatient (IN) | payer OTHER, SELFPAY ==
--- NOTE | 2023-09-08 11:09 | CM ---
Patient is scheduled for cervical spine surgery on 09/30/23. Spoke with patient prior to surgery via telephone. Introduced role of the Orthopedic Navigator. Patient reports that she lives with her and daughter (who is home from college for
the summer) in a two story home. There are two steps to enter and a flight of steps to the second floor. She currently functions independently. She occasionally uses a walking stick for balance. She has no DME and has never had VN services. PCP is
Taylor Terry.
Discussed orthopedic program, post surgical plans and tentative plan for patient to return home when directed by surgeon. Patient is in agreement with tentative plan and will have support from her and daughter when she goes home.
Plan: Orthopedic Navigator will remain available to assist with the care of patient and will reassess discharge needs after surgery.
[2023-09-16 13:13] VITALS: BMI 41.4
[2023-09-16 13:58] LABS: Hematocrit 38.5 % (37.0-47.0); Hemoglobin 13.2 g/dL (12.0-16.0); Mean Corp Hgb Conc. 34.3 g/dL (33.0-37.0); Mean Corpuscular Hgb 30.7 pg (27.0-31.0); Mean Corpuscular Volume 89.5 fL (81.0-99.0); Mean Platelet Volume 9.2 fL (7.4-10.4); Platelet Count 336 10^3/uL (130-400); Red Cell Dist. Width 12.5 % (11.5-14.5); White Blood Cell Count 7.9 10^3/uL (4.8-10.8)
[2023-09-16 14:11] LABS: ALT (SGPT) 20 U/L (0-35); AST (SGOT) 30 U/L (14-36); Albumin 4.3 g/dl (3.5-5.0); Alkaline Phosphatase 89 U/L (38-126); Blood Urea Nitrogen 20 mg/dl (7-17); Calcium 9.5 mg/dl (8.4-10.2); Carbon Dioxide 28 mmol/L (22-30); Chloride 97 mmol/L (98-107); Estimated Creatinine Clearance 87 ml/min; Glucose 88 mg/dl (70-99); Potassium 4.7 mmol/L (3.5-5.1); Sodium 133 mmol/L (135-145); Total Bilirubin 0.6 mg/dl (0.2-1.3); eGFR > 60.00
[2023-09-16 14:27] LABS: Total Protein 6.4 g/dl (6.3-8.2)
[2023-09-25 12:26] VITALS: BMI 41.4
[2023-09-30] VITALS (20 sets, daily range): BP systolic 112–162; BP diastolic 72–112; PULSE 105; O2SAT 92; BMI 41.7
[2023-09-30] MEDS: TYLENOL 1000 MG PO ×3 (06:43→17:07)
[2023-09-30] MEDS: LYRICA 150 MG PO (06:43)
[2023-09-30] MEDS: SKELAXIN 800 MG PO ×2 (06:43→15:17)
[2023-09-30] MEDS: NORMOSOL-R 1000 IV ×3 (06:53→19:54)
[2023-09-30] MEDS: TRANSDERM-SCOP 1 PATCH TRANSDERM (07:09)
--- NOTE | 2023-09-30 08:39 | W.DS.TRANS ---
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
-
Discharge Instructions:
Sleep Apnea Risk Low
Discharge Diagnosis/Procedures C3-4-5-6 ACDF 09/30/23
Diet As tolerated
Activity No strenuous activity
Driving Restrictions No driving
Instructions:
Stand-Alone Forms:
Changes to Home Medications: Yes
Discharge Medications:
DC Medications w/original date entered in [employer]
albuterol sulfate 90 mcg/actuation aerosol inhaler 2 puff inhalation R Q4HPRN PRN shortness of breath 09/23/19
multivitamin 1 ea PO DAILY Supplement 09/23/19
baclofen 10 mg tablet 10 mg PO TID PRN muscle spasms 01/01/22
duloxetine 60 mg capsule,delayed release (Cymbalta) 60 mg PO DAILY Pain 01/01/22
fluticasone fur. 200 mcg-umeclid 62.5 mcg-vilant 25 mcg inhalat.powder (Trelegy Ellipta) 1 inh inhalation R DAILY Lung/breathing issues 01/01/22
pantoprazole 40 mg tablet,delayed release (Protonix) 40 mg PO DAILY Gastrointestinal issue 01/01/22
ropinirole 0.5 mg tablet 1 mg PO HS Neurological Condition 01/01/22
ubrogepant 100 mg tablet (Ubrelvy) 100 mg PO PRN PRN migraines 01/01/22
cevimeline 30 mg capsule 30 mg PO TID dry mouth 05/06/23
gabapentin 300 mg capsule 300 mg PO BID@0800,1400 Neurological Condition 05/06/23
gabapentin 300 mg capsule 600 mg PO HS Neurological Condition 05/06/23
montelukast 10 mg tablet 10 mg PO HS Allergies 05/06/23
tezepelumab-ekko 210 mg/1.91 mL (110 mg/mL) subcutaneous syringe (Tezspire) 0 mg SC MONTHLY asthma 05/06/23
Botox 1 dose SC PRN PRN migraines 09/23/23
azelastine 137 mcg (0.1 %) nasal spray 1 spray intranasal PRN PRN nasal congestion 09/23/23
fremanezumab-vfrm 225 mg/1.5 mL subcutaneous auto-injector (Ajovy) 225 mg SC QMONTH 09/23/23
hydrochlorothiazide 12.5 mg tablet 12.5 mg PO PRN PRN ankle swelling 09/23/23
sumatriptan 20 mg/actuation nasal spray 20 mg intranasal PRN PRN migraines 09/23/23
Fioricet 50 mg PO DAILY Pain 09/30/23
Saccharomyces boulardii 250 mg capsule (Florastor) 250 mg PO BID #1 cap 09/30/23
acetaminophen 500 mg tablet (Tylenol Extra Strength) 1,000 mg (2 x 500 mg) PO QID #0 tabs 09/30/23
cephalexin 500 mg capsule 500 mg PO QID infection prevention #20 caps 09/30/23
cetirizine 10 mg tablet (Zyrtec) 10 mg PO DAILY 09/30/23
dexamethasone 4 mg tablet 4 mg PO BID inflammation #6 tabs 09/30/23
docusate sodium 100 mg capsule (Colace) 100 mg PO BID stool softner #1 cap 09/30/23
magnesium hydroxide 400 mg/5 mL oral suspension (Milk of Magnesia) 30 ml PO HS PRN Constipation #1 mL 09/30/23
melatonin 5 mg tablet 5 mg PO DAILY 09/30/23
ondansetron 4 mg disintegrating tablet 4 mg PO DAILY PRN nausea 09/30/23
oxycodone 5 mg tablet 5 mg PO Q6H PRN 1 tab moderate pain, 2 tabs severe pain #30 tabs 09/30/23
sennosides 8.6 mg tablet (Senokot) 17.2 mg (2 x 8.6 mg) PO BID laxative #2 tabs 09/30/23
Home Medication Changes
cephalexin 500 mg capsule 500 mg PO QID infection prevention #20 caps 09/30/23
dexamethasone 4 mg tablet 4 mg PO BID inflammation #6 tabs 09/30/23
oxycodone 5 mg tablet 5 mg PO Q6H PRN 1 tab moderate pain, 2 tabs severe pain #30 tabs 09/30/23
Pending Results: No
[2023-09-30] MEDS: ULTRAM PO (09:00)
[2023-09-30] MEDS: DILAUDID 0.5 MG IV ×2 (10:01→10:17)
[2023-09-30] MEDS: TRANDATE 5 MG IV (11:02)
--- NOTE | 2023-09-30 11:11 | PTCARENOTE ---
Dr Sosa aware of HTN.
--- NOTE | 2023-09-30 11:49 | PTCARENOTE ---
Pt received from PACU s/p cervical ACDF. Soft cervical collar in place. Anterior cervical dressing CDI. Pt AAOx3. VSS. IVF infusing per order. Neurovascular checks WDL. Assessment documented. Pt resting in bed, call mejias within reach.
[2023-09-30] MEDS: ULTRAM 50 MG PO ×3 (12:13→21:51)
[2023-09-30] MEDS: ROXICODONE 10 MG PO ×2 (12:14→19:54)
[2023-09-30] MEDS: PROTONIX 40 MG PO (14:05)
[2023-09-30] MEDS: CYMBALTA DELAYED RELEASE PO (14:05)
[2023-09-30] MEDS: ANCEF 5 IV (15:17)
[2023-09-30] MEDS: SPIRIVA RESPIMAT 2.5 MCG 2 PUFF INH (15:31)
[2023-09-30] MEDS: SYMBICORT 160/4.5 MCG INHALER 2 PUFF INH (15:31)
[2023-09-30] MEDS: LYRICA 75 MG PO (17:07)
[2023-09-30] MEDS: SENOKOT 17.2 MG PO (19:53)
[2023-09-30] MEDS: COLACE 100 MG PO (19:54)
[2023-09-30] MEDS: MELATONIN 5 MG PO (21:51)
[2023-09-30] MEDS: REQUIP 1 MG PO (21:51)
[2023-09-30] MEDS: SINGULAIR 10 MG PO (21:51)
[2023-10-01] MEDS: ULTRAM 50 MG PO ×2 (00:31→05:32)
[2023-10-01] MEDS: SKELAXIN 800 MG PO ×2 (00:31→07:41)
[2023-10-01] MEDS: ANCEF 5 IV (00:32)
[2023-10-01] MEDS: TYLENOL 1000 MG PO ×2 (00:32→11:15)
[2023-10-01] MEDS: ROXICODONE 10 MG PO ×3 (00:37→11:14)
[2023-10-01 03:45] VITALS: BP 147/83
[2023-10-01] MEDS: LYRICA 75 MG PO (05:32)
[2023-10-01] MEDS: NORMOSOL-R 1000 IV (05:32)
[2023-10-01] MEDS: TYLENOL PO (05:33)
[2023-10-01 06:50] LABS: Hematocrit 37.7 % (37.0-47.0); Hemoglobin 12.7 g/dL (12.0-16.0)
[2023-10-01] MEDS: SYMBICORT 160/4.5 MCG INHALER 2 PUFF INH (07:08)
[2023-10-01] MEDS: SPIRIVA RESPIMAT 2.5 MCG 2 PUFF INH (07:10)
[2023-10-01 07:20] LABS: Blood Urea Nitrogen 12 mg/dl (7-17); Calcium 9.2 mg/dl (8.4-10.2); Carbon Dioxide 28 mmol/L (22-30); Chloride 93 mmol/L (98-107); Estimated Creatinine Clearance 99 ml/min; Glucose 89 mg/dl (70-99); Potassium 4.4 mmol/L (3.5-5.1); Sodium 130 mmol/L (135-145); eGFR > 60.00
[2023-10-01 07:37] VITALS: BP 161/99
[2023-10-01] MEDS: ZYRTEC 10 MG PO (07:41)
[2023-10-01] MEDS: SENOKOT 17.2 MG PO (07:41)
[2023-10-01] MEDS: COLACE 100 MG PO (07:41)
[2023-10-01] MEDS: CYMBALTA DELAYED RELEASE 60 MG PO (07:41)
[2023-10-01] MEDS: FIORICET 1 TAB PO (07:41)
[2023-10-01] MEDS: PROTONIX 40 MG PO (07:41)
--- NOTE | 2023-10-01 07:46 | W.PN.SP ---
Today's Communication / Plan
-
s/p acdf
Doing well
PT
D/c
Subjective / Objective
Subjective Data
PT doing well
Swallowing a little sore
Denies weakness or difficulty breathing
Objective Data
Vital Signs
Temp Pulse Resp BP Pulse Ox
97.9 F 91 17 161/99 97
10/01/23 07:37 10/01/23 07:37 10/01/23 07:37 10/01/23 07:37 10/01/23 07:37
Intake and Output
09/30/23 10/01/23 10/02/23
06:59 06:59 06:59
Intake Total 2960 / 2960
Balance 2960 / 2960
Intake:
Oral fluids 2760 / 2760
IV fluids (Total) 200 / 200
normosol 200 / 200
Other:
Number of approximated SMALL 1
amounts of urine
Number of approximated MODERATE 3
amounts of urine
Lab Data
10/01/23 06:05
10/01/23 06:05
Physical Exam
-
No focal deficits
--- NOTE | 2023-10-01 08:36 | CM ---
Reviewed chart and held rounds with PT, OT and RN. Patient had planned cervical spine surgery with Dr. Chow on 09/29. Met with patient at bedside. Confirmed information previously obtained for assessment and discussed discharge plans. Patient
continues to plan to return home at discharge. She will have support from her and daughter when she goes home. Reviewed that she will work with PT/OT this morning and that discharge needs will depend on her functional status. However, no
needs currently identified.
Patient has walking sticks at home.
Patient will use [facility] pharmacy for discharge prescriptions.
[2023-10-01 10:51] VITALS: BP 151/95; PULSE 91; O2SAT 100
[2023-10-01 11:18] VITALS: BP 158/89
--- NOTE | 2023-10-01 11:50 | W.PN.ORTHO ---
Today's Communication / Plan
-
d/c
Assessment
.
Distal Motor Intact: Yes
Dressing:
Clean, dry and intact.
Assessment:
Asthma-severe persistent-followed by Pulmonary-O2 sats stable on RA
Plan
.
Surgery / Date: C3-[address] Chow 09/30/23
Activity:
Out of bed.
PT/OT
Discharge Plan: Home
Subjective
.
.:
Patient resting comfortably.
Vital Signs and Labs
.
Vital Signs and Labs:
Lab Results
10/01/23 06:05
10/01/23 06:05
Temp Pulse Resp BP Pulse Ox
98.8 F 94 19 158/89 100
10/01/23 11:18 10/01/23 11:18 10/01/23 11:18 10/01/23 11:18 10/01/23 11:18
Physical Exam
-
HEENT: No pallor, cyanosis, or jaundice. Throat clear.
NECK: Supple. No JVD.
RESPIRATORY: Lungs clear to auscultation.
CVS: S1, S2 normal. RRR.� No murmur, rub or gallop.
ABDOMEN: Soft, non-tender. No distension. BS+/normal.
EXTREMITIES: strength equal, no calf pain with palpation
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 No focal deficits. 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
== END 2023-10-01 12:39 | disposition home or self-care (01) | DRG 472 ==
LOC: 2 SOUTH 06:09
PROVIDERS: Physician Assistant Medical; ADMITTING PHYSICIAN Orthopaedic Surgery Orthopaedic Surgery of the Spine; FAMILY PHYSICIAN Nurse Practitioner Adult Health
PROC: 00NW0ZZ Release Cervical Spinal Cord, Open Approach (ICD-10-PCS; 2023-09-30)
PROC: 0RB30ZZ Excision of Cervical Vertebral Disc, Open Approach (ICD-10-PCS; 2023-09-30)
PROC: 0RG20A0 Fusion of 2 or more Cervical Vertebral Joints with Interbody Fusion Device, Anterior Approach, Anterior Column, Open Approach (ICD-10-PCS; 2023-09-30)
DX: M48.02 Spinal stenosis, cervical region (principal); K50.90 Crohn's disease, unspecified, without complications; M40.202 Unspecified kyphosis, cervical region; J45.50 Severe persistent asthma, uncomplicated; I10 Essential (primary) hypertension; M06.9 Rheumatoid arthritis, unspecified; I73.00 Raynaud's syndrome without gangrene; K21.9 Gastro-esophageal reflux disease without esophagitis; J44.9 Chronic obstructive pulmonary disease, unspecified; J47.9 Bronchiectasis, uncomplicated; M79.7 Fibromyalgia; F41.8 Other specified anxiety disorders; Z79.899 Other long term (current) drug therapy; Z79.82 Long term (current) use of aspirin; Z79.51 Long term (current) use of inhaled steroids; Z88.2 Allergy status to sulfonamides; Z88.0 Allergy status to penicillin
CPT/HCPCS: 36415; 72020; 80048; 80053; 85014; 85018; 85027; 86850; 86900; 86901; 93005; 94640; 97116; 97163; 97166; 97530; 97535

== ENCOUNTER → 2023-12-28 13:40 | Outpatient (REF) | payer OTHER, SELFPAY | LOC: RCS 13:40 | PROVIDERS: ATTENDING PHYSICIAN Internal Medicine Cardiovascular Disease; FAMILY PHYSICIAN Nurse Practitioner Adult Health | DX: R06.02 Shortness of breath (principal); E66.01 Morbid (severe) obesity due to excess calories; R07.89 Other chest pain; R27.0 Ataxia, unspecified | CPT/HCPCS: 93306 ==

== ENCOUNTER → 2023-12-29 10:06 | Outpatient (REF) | payer OTHER, SELFPAY | LOC: PET 10:06 | PROVIDERS: ATTENDING PHYSICIAN Internal Medicine Cardiovascular Disease | DX: R06.02 Shortness of breath (principal); E66.01 Morbid (severe) obesity due to excess calories; R07.89 Other chest pain | CPT/HCPCS: 78431; A9555; J2785 ==

== ENCOUNTER 2024-01-21 09:00 | Outpatient (RCR) | payer OTHER, SELFPAY | END 2024-01-21 23:59 | disposition home or self-care (01) | LOC: PURB 09:00 | PROVIDERS: ATTENDING PHYSICIAN Internal Medicine; FAMILY PHYSICIAN Nurse Practitioner Adult Health | DX: J45.50 Severe persistent asthma, uncomplicated (principal) | CPT/HCPCS: G0237 ==

== ENCOUNTER 2024-01-25 12:59 | Outpatient (RCR) | payer OTHER, SELFPAY ==
[2024-01-13 13:45] VITALS: BP 142/89
[2024-01-13] MEDS: VENOFER 110 MG IV (14:02)
[2024-01-13 15:05] VITALS: BP 137/82
[2024-01-21 13:10] VITALS: BP 168/95
[2024-01-21] MEDS: VENOFER 110 MG IV (13:23)
[2024-01-21 14:35] VITALS: BP 150/87
[2024-01-25 13:10] VITALS: BP 164/101
[2024-01-25] MEDS: VENOFER 110 MG IV (13:20)
[2024-01-25 14:25] VITALS: BP 158/99
--- NOTE | 2024-01-25 15:12 | W.PN.UPDATE ---
Update Note
- Progress Note Update
01/25/24 15:12
Patient seen in OID due to elevated BP and new dizziness, fatigue, chest pain, and overall unwell feeling. Denies any other symptoms but does state she recently stopped predisone. Denies having these type symptoms before. Denies viral syndrome or
family viral syndrome. History of co-morbid conditions including chron's and asthma. Under the care of Dr. Niño in cardiology and Dr. Alvarenga in pulmonary. Discussed options of contacting MD for further follow up but given the new and
worsening symptoms discussed instead ER visit. Patient was in agreement. BP 158/99 (usual 150/90). LCTA. HRR. No edema. ROS otherwise negative. Will send to ER for evaluation of new symptoms. ER teams note sent and transported to ED for
evaluation.
--- NOTE | 2024-01-25 15:38 | PTCARENOTE ---
late entry: pt here for venofer infusion, c/o fatigue initially, while venofer infusing pt's bp was initially high on arrival at 164/101, hr 85, no distress noted, but stating 'I'm just not feeling right today.' c/o off and on dizziness, with off
and on chest pain over the weekend as well. bp rechecked was 158/99, hr 85, pox 100% ra; [facility] on unit and came to see pt and decision made with patient to send to ER for evaluation.
Pt transported to ER via wheelchair with another RN.
== END 2024-02-06 23:59 | disposition home or self-care (01) ==
LOC: OID 12:59
PROVIDERS: ATTENDING PHYSICIAN Nurse Practitioner Family; FAMILY PHYSICIAN Nurse Practitioner Adult Health
DX: D50.9 Iron deficiency anemia, unspecified (principal); M50.11 Cervical disc disorder with radiculopathy, high cervical region; D50.8 Other iron deficiency anemias; J45.50 Severe persistent asthma, uncomplicated; J15.212 Pneumonia due to Methicillin resistant Staphylococcus aureus; R06.02 Shortness of breath; D84.9 Immunodeficiency, unspecified; G60.2 Neuropathy in association with hereditary ataxia; Z86.14 Personal history of Methicillin resistant Staphylococcus aureus infection; K50.919 Crohn's disease, unspecified, with unspecified complications; M06.9 Rheumatoid arthritis, unspecified
CPT/HCPCS: 96365; J1756

== ENCOUNTER 2024-01-25 15:02 | Emergency (ER) | payer OTHER, SELFPAY ==
[2024-01-25 15:09] VITALS: BP 211/130
--- NOTE | 2024-01-25 15:09 | ED.GENMED ---
ED Provider Triage
<Sidney Rosenbaum PA-C - Last Filed: 01/25/24 15:13>
-
Patient seen by provider in Triage?: Seen in Triage
Attestation: A medical screening examination has been initiated by a qualified medical provider. Based on the assessment performed at this time, it has been determined that an emergent medical condition may exist and the patient has been informed
that further medical evaluation and possible additional diagnostic testing may be needed.
HPI: 53-year-old female presenting to the ER for evaluation of persistent lightheadedness, palpitations, shortness of breath and generally feeling unwell with symptoms started yesterday, aggravated while she was getting her iron infusion today.
Infusion center recommended patient come to the ER for further evaluation. Patient states that she has received iron infusions in the past without these symptoms. Cardiac workup initiated. Patient's EKG without any acute ischemic changes.
GENERAL: Alert , in no apparent distress
EYE: No visual abnormalities.
NECK: Trachea midline
ENT: No visible abnormalities.
LUNGS: No acute respiratory distress
NEUROLOGICAL: Alert and oriented
SKIN: Skin intact. No visible changes.
MUSCULOSKELETAL: Moving extremities normally
PSYCH: Normal and appropriate interaction.
This is a medical evaluation conducted in person to initiate diagnostic evaluation and provide initial therapeutics. Please see further documentation by the treating clinician.
History of Present Illness
<Sidney Rosenbaum PA-C - Last Filed: 01/25/24 15:13>
General
Chief Complaint: Chest Pain
Time Seen by Provider: 01/25/24 18:07
<MARÍA Pete - Last Filed: 01/25/24 20:53>
General
Source: patient
Exam Limitations: none
History of Present Illness
History of Present Illness:
This is a 53 year old female that comes in with c/o chest pain, SOB and her BP going up and down. states that she did see the scarfer in the past month. States that she did a work up. Today she was here for an Iron infusion. States that over
the weekend she has had chest pain, felt tired, dizzy and of balance. States that today with the infusion her BP was elevated and when she was walking in she felt like she was going to collapse. States that when she got in her BP was 166/110 with a
pulse of 120. States that it just did not come down. States that they had the doctor there see patient and the felt she better come to the ER. States that she has a headache, lightheadedness, and nausea. Denies any fever, chills, abd pain, vomiting,
diarrhea, urinary burning.
Past History
<Sidney Rosenbaum PA-C - Last Filed: 01/25/24 15:13>
Past History
ED Past Medical History: Asthma and Other (Migraines, colitis, Crohn's, fibromyalgia, mixed connective tissue disease)
ED Past Surgical History: Appendectomy, and Tonsilectomy
Social History
Tobacco: Non-smoker
Alcohol: None
Drug: None
Personal:
Living: with family
Employment: Employed
Family History
Family History: Hypertension
<MARÍA Ptee - Last Filed: 01/25/24 20:53>
Past History
ED Past Medical History: Asthma, Fibromyalgia, GERD, HTN, Psychiatric (Anxiety. PTSD) and Other (Migraines, colitis, Crohn's, mixed connective tissue disease, Restless leg, PNA, Endometriosis, Overactive bladder, Anemia, )
ED Past Surgical History: Appendectomy, , Gynecological (pelvic floor reconstruction), Orthopedic (Right and left knee surgery, Spinal surgery, ), Tonsilectomy, Urological (Mass right kidney with Partial nephrectomy) and Other (Hernia
repair)
Social History
Alcohol: Occasional
Personal:
Living: with family
Review of Systems
<MARÍA Pete - Last Filed: 01/25/24 20:53>
Review of Systems
All Other Systems: ROS reviewed and negative except as documented in HPI and ROS
Constitutional: Reports no symptoms; Denies fever or chills
EENT: Reports no symptoms
Respiratory: Reports trouble breathing; Denies cough
Cardiac: Reports chest pain
ABD/GI: Reports nausea; Denies abdominal pain, vomiting or diarrhea
: Reports no symptoms; Denies dysuria, frequency or urgency
Musculoskeletal: Reports no symptoms
Skin: Reports no symptoms
Neurological: Reports headache and other (Lightheaded)
Psychiatric: Reports no symptoms
Phy Exam
<MARÍA Pete - Last Filed: 01/25/24 20:53>
General Physical Exam
General Presentation: no apparent distress
General age: appears stated age
General Skin: warm and dry
General Habitus: normal
General Mental: alert
General Hydration: dry mucous membranes
ENT Exam
ENT Exam: TM's normal, pharynx normal and neck supple
Eye Exam
Eye Exam: EOMI
Cardiovascular Exam
Cardiovascular Exam: regular rate/rhythm, no edema, no murmur and normal peripheral pulses
Pulmonary Exam
Pulmonary Exam: no respiratory distress, no rales, chest non tender, no crackles, no rhonchi and other (Exp wheezing throughout)
Gastrointestinal Exam
Gastrointestinal Exam: normal bowel sounds, non tender, soft, no organomegaly, no pulsatile mass and non distended
Musculoskeletal Exam
Musculoskeletal Exam: full ROM and no edema
Skin Exam
Skin Exam: normal color, warm/dry, no rash and no petechia
Psychiatric Exam
Psychiatric Exam: normal mood/affect
Scores
<MARÍA Pete - Last Filed: 01/25/24 20:53>
Heart Score for Chest Pain Patients
STEMI patient?: No
History: Slightly or Non-Suspicious
ECG: Normal
Age: >45 - <65 years
Risk Factors: No Risk Factors
Troponin: </= Normal Limit
Heart Score for Chest Pain Patients: 1
Heart Score Risk: 2.5% MACE over next 6 weeks
Course
<Sidney Rosenbaum PA-C - Last Filed: 01/25/24 15:13>
Orders/Labs/Results
Orders:
Orders
01/25/24 15:04
Electrocardiogram (*1) Urgent
Reason for Study: Chest Pain
EKG- Treatment ONCE
01/25/24 15:15
Complete Blood Count/With Diff Urgent
Comprehensive Metabolic Panel Urgent
Magnesium Urgent
NT-proBNP Urgent
Troponin I Urgent
01/25/24 18:39
CT Head W/o Iv Contrast Urgent
Comment:
Reason For Exam: dizziness, headache
HydrALAZINE [Apresoline] 5 mg IV NOW STA
01/25/24 18:41
CR Chest - 2 Views Urgent
Comment:
Reason For Exam: SOb
01/25/24 18:49
Ipratropium/Albuterol Sulfate [Duoneb] 3 ml INH R NOW ONE
01/25/24 18:51
Troponin I Urgent
Abnormal Lab Results
01/25/24
15:15
WBC 15.8 H 10^3/uL
(4.8-10.8)
MCH 31.1 H pg
(27.0-31.0)
Abs Immat Gran (auto) 0.1 H 10^3/uL
(0-0.05)
Absolute Neuts (auto) 12.0 H 10^3/uL
(1.4-6.5)
Absolute Monos (auto) 1.4 H 10^3/uL
(0.1-0.6)
Immature Gran % 0.8 H %
(0-0.5)
Neutrophils % 76.1 H %
(42.2-75.2)
Lymphocytes % 13.8 L %
(20.5-51.1)
Sodium 134 L mmol/L
(135-145)
BUN 22 H mg/dl
(7-17)
01/25/24 15:15
01/25/24 15:15
Vital Signs
Initial and Last Documented VS:
Initial Vital Signs
Pulse Resp BP Pulse Ox
90 18 211/130 98
01/25/24 15:09 01/25/24 15:09 01/25/24 15:09 01/25/24 15:09
Last Documented Vital Signs
Pulse Resp BP Pulse Ox
86 16 141/88 97
01/25/24 20:41 01/25/24 20:41 01/25/24 20:41 01/25/24 20:41
<MARÍA Pete - Last Filed: 01/25/24 20:53>
Orders/Labs/Results
Orders:
Orders
01/25/24 15:04
Electrocardiogram (*1) Urgent
Reason for Study: Chest Pain
EKG- Treatment ONCE
01/25/24 15:15
Complete Blood Count/With Diff Urgent
Comprehensive Metabolic Panel Urgent
Magnesium Urgent
NT-proBNP Urgent
Troponin I Urgent
01/25/24 18:39
CT Head W/o Iv Contrast Urgent
Comment:
Reason For Exam: dizziness, headache
HydrALAZINE [Apresoline] 5 mg IV NOW STA
01/25/24 18:41
CR Chest - 2 Views Urgent
Comment:
Reason For Exam: SOb
01/25/24 18:49
Ipratropium/Albuterol Sulfate [Duoneb] 3 ml INH R NOW ONE
01/25/24 18:51
Troponin I Urgent
Abnormal Lab Results
01/25/24
15:15
WBC 15.8 H 10^3/uL
(4.8-10.8)
MCH 31.1 H pg
(27.0-31.0)
Abs Immat Gran (auto) 0.1 H 10^3/uL
(0-0.05)
Absolute Neuts (auto) 12.0 H 10^3/uL
(1.4-6.5)
Absolute Monos (auto) 1.4 H 10^3/uL
(0.1-0.6)
Immature Gran % 0.8 H %
(0-0.5)
Neutrophils % 76.1 H %
(42.2-75.2)
Lymphocytes % 13.8 L %
(20.5-51.1)
Sodium 134 L mmol/L
(135-145)
BUN 22 H mg/dl
(7-17)
01/25/24 15:15
01/25/24 15:15
Leukocytosis (patient was on Prednisone recently), Dehydration. Troponin <0.012, Pro-BNP 350
Second troponin <0.012
Vital Signs
Initial and Last Documented VS:
Initial Vital Signs
Pulse Resp BP Pulse Ox
90 18 211/130 98
01/25/24 15:09 01/25/24 15:09 01/25/24 15:09 01/25/24 15:09
Last Documented Vital Signs
Pulse Resp BP Pulse Ox
86 16 141/88 97
01/25/24 20:41 01/25/24 20:41 01/25/24 20:41 01/25/24 20:41
<MARÍA Pete - Last Filed: 01/25/24 20:53>
MDM/Problems Addressed
Differential Diagnosis Includes:
Asthma, hypertension, Anxiety
MDM/Problems Addressed:
This is a 53 year old female that comes in with c/o SOB, chest pain and elevated BP. State that this started over the weekend. Today when she came for her infusion her BP was elevated and it never really went down. States that she has a headache,
lightheadedness, nausea and the chest pain.
Will check labs. Chest x-ray, CT head. Give Duo neb for her wheezing.
Back into see patient. Patient states that the Neb treatment made her feel clearer. Explained that she can use her nebulizer at home for her SOB and wheezing. Otherwise her both Troponin are normal. chest x-ray is normal . Will have patient follow
up with the family doctor and her [employer]. Patient to return with any concerns.
Chronic conditions affecting care: HTN, Asthma and Psychiatric illness (Anxiety)
Acute Exacerbation and/or Progression of Chronic Illness: Asthma
<MARÍA Pete - Last Filed: 01/25/24 20:53>
*Radiology
Radiology exam reviewed: radiology read reviewed (Chest- No acute cardiopulmonary process CT head-NO acute intracranial abnormality )
*Pulse Oximetry
Patient hypoxic: no
*EKG
Interpreted by ED Provider?: Yes
Heart Rate: 83
Rate: normal
Rhythm: sinus
[place]: normal axis
Interval: normal interval
QRS Pattern: normal QRS
Ischemia: no ischemia
*Cheesemaker Interpretation
Rate: normal
Heart Rate: 79
Rhythm: sinus
*Critical Care Note
Total Time (30-74mins, 75-104mins- exclusive of procedures): Not Applicable
ED Attending Note
<Sidney Rosenbaum PA-C - Last Filed: 01/25/24 15:13>
-
Portions of this chart may have been created with voice recognition software.� Occasional wrong word or��sound alike� substitutions may have occurred due to the inherent limitations of voice recognition software.
Discharge Plan
Departure
Patient Disposition: Home (Routine Discharge)
Date of Disposition: 01/25/24
Time of Disposition: 20:48
Patient with high blood pressure during this ER visit?: Yes
Condition: Good
Covid-19: Not Applicable
Discharge Problem:
Chest pain, Expiratory wheezing, Asthma
Instructions: Wheezing, Asthma, Adult ED, Chest Pain PCP Follow Up, BLOOD PRESSURE
Prescriptions:
No Action
multivitamin 1 EACH tablet
1 ea PO DAILY
albuterol sulfate 1 PUFF HFA aerosol inhaler
2 puff inhalation R Q4HPRN PRN (Reason: shortness of breath)
ropinirole 0.5 mg Tablet
1 mg PO HS
duloxetine [Cymbalta] 60 mg Capsule,Delayed Release(Dr/Ec)
60 mg PO DAILY
pantoprazole [Protonix] 40 mg Tablet,Delayed Release (Dr/Ec)
40 mg PO DAILY
Trelegy Ellipta 200-62.5-25 mcg Blister With Device
1 inh INHALATION R DAILY
baclofen 10 mg Tablet
10 mg PO TID PRN (Reason: muscle spasms)
Ubrelvy 100 mg Tablet
100 mg PO PRN PRN (Reason: migraines)
cevimeline 30 mg capsule
30 mg PO BID
gabapentin 300 mg capsule
300 mg PO BID@0800,1400
gabapentin 300 mg capsule
600 mg PO HS
montelukast 10 mg tablet
10 mg PO HS
Tezspire 210 mg/1.91 mL (110 mg/mL) syringe
0 mg SC MONTHLY
azelastine 137 mcg (0.1 %) [place],Non-Aerosol
1 spray INTRANASAL PRN PRN (Reason: nasal congestion)
hydrochlorothiazide 12.5 mg Tablet
12.5 mg PO DAILY
Ajovy Autoinjector 225 mg/1.5 mL Auto-Injector
225 mg SC QMONTH
Botox
1 dose SC PRN PRN (Reason: migraines)
sumatriptan 20 mg/actuation [place],Non-Aerosol
20 mg INTRANASAL PRN PRN (Reason: migraines)
cetirizine [Zyrtec] 10 mg Tablet
10 mg PO DAILY PRN (Reason: Allergies)
Fioricet
50 mg PO DAILY PRN (Reason: migraines)
ondansetron 4 mg Tablet,Disintegrating
4 mg PO DAILY PRN (Reason: nausea)
melatonin 5 mg Tablet
5 mg PO HS
prednisone 20 mg Tablet
40 mg PO DAILY
Patient Comments:
FOR 5 DAYS STARTING 01/19
Referrals:
Taylor Terry CRNP [Family Provider] - Follow up in 2-3 days
Activity Restrictions/Additional Instructions:
As discussed,your both troponin are normal. Your chest x-ray is normal. You did have expiratory wheezing. Please use your Nebulizer at home to help with the shortness of breath and wheezing. Please increase your water intake to 8-8oz glasses daily.
Follow up with the family doctor and your scarfer for further evaluation. IF YOU HAVE INCREASED OR CHANGING PAIN PAIN, SHORTNESS OR BREATH OR YOU HAVE ANY OTHER CONCERNS PLEASE RETURN TO THE EMERGENCY ROOM.
Interventions
Interventions:
*Risk Screen - Suicide Last Done: 01/25/24 15:11
*General Assessment Last Done: 01/25/24 18:14
*Neglect/Abuse Screening Last Done: 01/25/24 15:11
ED- Fall Risk Assessment Last Done: 01/25/24 18:14
*ED COVID-19 Vaccine History Last Done: 01/25/24 18:13
ED- Cardiac Assessment Last Done: 01/25/24 18:13
Discharge Date and Time
Print Language: ANDORRAN
[2024-01-25 15:11] VITALS: BP 182/119
[2024-01-25 15:42] LABS: % Basophils 0.1 % (0-2); % Eosinophils 0.2 % (0-6); % Immature Granulocytes 0.8 % (0-0.5); % Lymphocytes 13.8 % (20.5-51.1); % Neutrophils 76.1 % (42.2-75.2); ALT (SGPT) 31 U/L (0-35); AST (SGOT) 23 U/L (14-36); Absolute Immature Granulocytes 0.1 10^3/uL (0-0.05); Absolute Lymphocytes 2.2 10^3/uL (1.2-3.4); Absolute Monocytes 1.4 10^3/uL (0.1-0.6); Albumin 4.2 g/dl (3.5-5.0); Alkaline Phosphatase 86 U/L (38-126); Blood Urea Nitrogen 22 mg/dl (7-17); Calcium 8.9 mg/dl (8.4-10.2); Carbon Dioxide 22 mmol/L (22-30); Chloride 98 mmol/L (98-107); Glucose 90 mg/dl (70-99); Hematocrit 43.1 % (37.0-47.0); Hemoglobin 14.5 g/dL (12.0-16.0); Magnesium 1.8 mg/dl (1.6-2.3); Mean Corp Hgb Conc. 33.6 g/dL (33.0-37.0); Mean Corpuscular Hgb 31.1 pg (27.0-31.0); Mean Corpuscular Volume 92.5 fL (81.0-99.0); Mean Platelet Volume 8.6 fL (7.4-10.4); Nucleated Red Blood Cells % 0 %; Platelet Count 331 10^3/uL (130-400); Potassium 4.2 mmol/L (3.5-5.1); Red Blood Cell Count 4.66 10^6/uL (4.20-5.40); Red Cell Dist. Width 12.6 % (11.5-14.5); Sodium 134 mmol/L (135-145); Total Bilirubin 0.6 mg/dl (0.2-1.3); Total Protein 6.6 g/dl (6.3-8.2); White Blood Cell Count 15.8 10^3/uL (4.8-10.8); eGFR > 60.00
[2024-01-25 15:53] LABS: NT-proBNP 350 pg/ml; Troponin I < 0.012 ng/ml
[2024-01-25 18:15] VITALS: BP 174/100
[2024-01-25] MEDS: APRESOLINE 5 MG IV (18:49)
[2024-01-25] MEDS: DUONEB 3 ML INH (18:54)
[2024-01-25 19:24] LABS: Troponin I < 0.012 ng/ml
[2024-01-25 20:41] VITALS: BP 141/88
[2024-01-25 21:04] VITALS: BP 145/83
== END 2024-01-25 21:05 | disposition home or self-care (01) ==
LOC: EMR 15:02
PROVIDERS: Clinical Nurse Specialist Family Health; Physician Assistant Medical; EMERGENCY PHYSICIAN Emergency Medicine; FAMILY PHYSICIAN Nurse Practitioner Adult Health
DX: J45.909 Unspecified asthma, uncomplicated (principal); R07.9 Chest pain, unspecified; I10 Essential (primary) hypertension; K21.9 Gastro-esophageal reflux disease without esophagitis; Z90.49 Acquired absence of other specified parts of digestive tract
CPT/HCPCS: 94640; 96374; 99285; 70450; 71046; 80053; 83735; 83880; 84484; 85025; 93005

== ENCOUNTER → 2024-03-10 10:48 | Outpatient (REF) | payer OTHER, SELFPAY | LOC: PAVMRI 10:48 | PROVIDERS: ATTENDING PHYSICIAN Psychiatry & Neurology Neurology; FAMILY PHYSICIAN Nurse Practitioner Adult Health | DX: R42 Dizziness and giddiness (principal); Z98.890 Other specified postprocedural states; M17.12 Unilateral primary osteoarthritis, left knee; M25.562 Pain in left knee | CPT/HCPCS: 70553; 73721; A9575 ==

== ENCOUNTER → 2024-04-18 08:23 | Outpatient (REF) | payer OTHER, SELFPAY | LOC: DHSLP 08:23 | PROVIDERS: ATTENDING PHYSICIAN Internal Medicine; FAMILY PHYSICIAN Nurse Practitioner Adult Health | DX: G47.33 Obstructive sleep apnea (adult) (pediatric) (principal) | CPT/HCPCS: 95810 ==

== ENCOUNTER → 2024-04-21 11:04 | Outpatient (REF) | payer OTHER, SELFPAY | LOC: RAD 11:04 | PROVIDERS: ATTENDING PHYSICIAN Physician Assistant; FAMILY PHYSICIAN Nurse Practitioner Adult Health | DX: M79.643 Pain in unspecified hand (principal) | CPT/HCPCS: 73130 ==

== ENCOUNTER → 2024-05-02 16:04 | Outpatient (REF) | payer OTHER, SELFPAY | LOC: RAD 16:04 | PROVIDERS: ATTENDING PHYSICIAN Registered Nurse | DX: R06.02 Shortness of breath (principal) | CPT/HCPCS: 71046 ==

== ENCOUNTER 2024-05-06 15:21 | Emergency (ER) | payer OTHER, SELFPAY ==
[2024-05-06 15:33] VITALS: BP 167/112
[2024-05-06 15:59] LABS: % Basophils 0.1 % (0-2); % Immature Granulocytes 0.8 % (0-0.5); % Lymphocytes 4.9 % (20.5-51.1); % Monocytes 1.8 % (1.7-9.3); % Neutrophils 92.4 % (42.2-75.2); Absolute Immature Granulocytes 0.1 10^3/uL (0-0.05); Absolute Lymphocytes 0.7 10^3/uL (1.2-3.4); Absolute Monocytes 0.2 10^3/uL (0.1-0.6); Absolute Neutrophils 12.4 10^3/uL (1.4-6.5); Hematocrit 42.5 % (37.0-47.0); Hemoglobin 14.4 g/dL (12.0-16.0); Mean Corp Hgb Conc. 33.9 g/dL (33.0-37.0); Mean Corpuscular Hgb 31.4 pg (27.0-31.0); Mean Corpuscular Volume 92.6 fL (81.0-99.0); Mean Platelet Volume 8.7 fL (7.4-10.4); Nucleated Red Blood Cells % 0 %; Platelet Count 407 10^3/uL (130-400); Red Blood Cell Count 4.59 10^6/uL (4.20-5.40); Red Cell Dist. Width 11.8 % (11.5-14.5); White Blood Cell Count 13.4 10^3/uL (4.8-10.8)
[2024-05-06 16:15] LABS: ALT (SGPT) 26 U/L (0-35); AST (SGOT) 22 U/L (14-36); Albumin 4.6 g/dl (3.5-5.0); Alkaline Phosphatase 82 U/L (38-126); Blood Urea Nitrogen 13 mg/dl (7-17); Calcium 9.7 mg/dl (8.4-10.2); Carbon Dioxide 23 mmol/L (22-30); Chloride 101 mmol/L (98-107); Glucose 130 mg/dl (70-99); Potassium 4.5 mmol/L (3.5-5.1); Sodium 134 mmol/L (135-145); Total Bilirubin 0.7 mg/dl (0.2-1.3); Total Protein 6.7 g/dl (6.3-8.2); eGFR > 60.00
[2024-05-06 16:24] LABS: Troponin I < 0.012 ng/ml
--- NOTE | 2024-05-06 22:30 | ED.GENMED ---
History of Present Illness
General
Chief Complaint: Breathing Problem
Time Seen by Provider: 05/06/24 21:56
History of Present Illness
History of Present Illness:
53-year-old female with history of asthma and Crohn's disease presenting to the emergency department for shortness of breath. Patient reports that she has been fighting a viral infection. For the past 1 to 2 weeks. She went to her doctor 4 days
ago, was started on an antibiotic and steroids. She went back to see her doctor today, was concerned about her breathing, advised to come to the hospital. Patient notes increasing shortness of breath with dyspnea and conversation. Denies any
history of intubations. Does report history of admission in the past for her asthma, however several years ago. Denies chest pain, notes productive cough. Denies abdominal pain or GI symptoms. Denies fever. Denies any history of blood clots.
Denies additional acute medical complaints
Past History
Past History
ED Past Medical History: Asthma, Fibromyalgia, GERD, HTN, Psychiatric (Anxiety. PTSD) and Other (Migraines, colitis, Crohn's, mixed connective tissue disease, Restless leg, PNA, Endometriosis, Overactive bladder, Anemia, )
ED Past Surgical History: Appendectomy, , Gynecological (pelvic floor reconstruction), Orthopedic (Right and left knee surgery, Spinal surgery, ), Tonsilectomy, Urological (Mass right kidney with Partial nephrectomy) and Other (Hernia
repair)
Social History
Tobacco: Non-smoker
Alcohol: Occasional
Drug: None
Personal:
Living: with family
Employment: Employed
Family History
Family History: Hypertension
Phy Exam
Physical Exam
Physical Exam:
General: Well-appearing, no clinical signs of dehydration, nontoxic and in no acute distress
HEENT: protecting airway
Neck: appears supple
CV: Normal heart rate, regular rhythm
Resp: Conversational dyspnea. Mild scant expiratory wheezing, overall moving adequate air
Abd: no distension
Extremities: No deformities, no swelling, no erythema
Neuro: alert, no focal neurologic deficit
: deferred
Rectal: deferred
Psych: Normal affect
Skin: Intact
Scores
Heart Failure Risk
Heart Failure Risk Score: Not Applicable
Course
Orders/Labs/Results
Orders:
Orders
05/06/24 15:40
Electrocardiogram (*1) Urgent
Reason for Study: Shortness of Breath
05/06/24 15:41
EKG- Treatment ONCE
Chest [CR Chest - 2 Views ] Urgent
Comment:
Reason For Exam: SOB
05/06/24 15:47
Complete Blood Count/With Diff Urgent
Comprehensive Metabolic Panel Urgent
Troponin I Urgent
05/06/24 22:17
Dexamethasone Sod Phosphate [Decadron] 10 mg IV NOW STA
Ipratropium/Albuterol Sulfate [Duoneb] 9 ml INH R NOW ONE
05/06/24 22:53
COVID-19 Antigen Urgent
Source: Nasal Swab
D-Dimer Urgent
Influenza A+B Rapid Molecular Urgent
[place] Source: Nasal Swab
Specimen Description:
05/06/24 23:45
Acetaminophen [Tylenol] 650 mg PO NOW STA
Abnormal Lab Results
05/06/24
15:47
WBC 13.4 H 10^3/uL
(4.8-10.8)
MCH 31.4 H pg
(27.0-31.0)
Plt Count 407 H 10^3/uL
(130-400)
Abs Immat Gran (auto) 0.1 H 10^3/uL
(0-0.05)
Absolute Neuts (auto) 12.4 H 10^3/uL
(1.4-6.5)
Absolute Lymphs (auto) 0.7 L 10^3/uL
(1.2-3.4)
Immature Gran % 0.8 H %
(0-0.5)
Neutrophils % 92.4 H %
(42.2-75.2)
Lymphocytes % 4.9 L %
(20.5-51.1)
Sodium 134 L mmol/L
(135-145)
Glucose 130 H mg/dl
(70-99)
05/06/24 15:47
05/06/24 15:47
Vital Signs
Initial and Last Documented VS:
Initial Vital Signs
Temp Pulse Resp BP Pulse Ox
98.5 F 105 18 167/112 96
05/06/24 15:33 05/06/24 15:33 05/06/24 15:33 05/06/24 15:33 05/06/24 15:33
Last Documented Vital Signs
Temp Pulse Resp BP Pulse Ox
98.5 F 89 14 145/82 94
05/06/24 15:33 05/07/24 00:45 05/07/24 00:45 05/07/24 00:00 05/07/24 00:45
MDM/Problems Addressed
MDM/Problems Addressed:
53-year-old female with history of asthma presenting for shortness of breath and wheezing. Vital signs on arrival are significant for mild tachycardia and hypertension.
On exam patient is resting comfortably, however does have conversational dyspnea. She is moving adequate air, with scant expiratory wheezing. Continue to suspect bronchitis and asthma exacerbation. Suspect secondary to upper respiratory
infection. Patient had chest x-ray imaging prior to my assessment, no infiltrates or acute pulmonary disease. Will send viral swabs. Will treat with DuoNebs and Decadron. Cannot satisfy PERC rule, and given persistence of symptoms, will send
D-dimer. EKG is sinus without acute evidence of ischemia
00:30 -D-dimer within normal limits. Patient ambulated without issue. No hypoxia. At this time continue to suspect acute bronchitis and mild asthma exacerbation. Feel stable for discharge and patient agrees that she would like to go home. Plan
for continued nebulizer treatments at home and steroids, which she already has. Strict return precautions communicated and patient verbalized understanding
*EKG
Interpreted by ED Provider?: Yes
EKG Intrepretation Date: 05/06/24
EKG Intrepretation Time: 22:36
Interpretation: normal
Comparison EKG: no changes (01/25/24)
Heart Rate: 99
Rate: normal
Rhythm: sinus
[place]: normal axis
Interval: normal interval
QRS Pattern: normal QRS
Ischemia: no ischemia
*Critical Care Note
Total Time (30-74mins, 75-104mins- exclusive of procedures): Not Applicable
ED Attending Note
-
Portions of this chart may have been created with voice recognition software.� Occasional wrong word or��sound alike� substitutions may have occurred due to the inherent limitations of voice recognition software.
Discharge Plan
Departure
Patient Disposition: Home (Routine Discharge)
Date of Disposition: 05/07/24
Time of Disposition: 00:34
Patient with high blood pressure during this ER visit?: No
Condition: Good
Discharge Problem:
Acute asthma exacerbation, Bronchitis
Instructions: Asthma, Adult (DC), Acute Bronchitis, Adult (DC)
Prescriptions:
No Action
multivitamin 1 EACH tablet
1 ea PO DAILY
albuterol sulfate 1 PUFF HFA aerosol inhaler
2 puff inhalation R Q4HPRN PRN (Reason: shortness of breath)
ropinirole 0.5 mg Tablet
1 mg PO HS
duloxetine [Cymbalta] 60 mg Capsule,Delayed Release(Dr/Ec)
60 mg PO DAILY
pantoprazole [Protonix] 40 mg Tablet,Delayed Release (Dr/Ec)
40 mg PO DAILY
Trelegy Ellipta 200-62.5-25 mcg Blister With Device
1 inh INHALATION R DAILY
baclofen 10 mg Tablet
10 mg PO TID PRN (Reason: muscle spasms)
Ubrelvy 100 mg Tablet
100 mg PO PRN PRN (Reason: migraines)
cevimeline 30 mg capsule
30 mg PO BID
gabapentin 300 mg capsule
300 mg PO BID@0800,1400
gabapentin 300 mg capsule
600 mg PO HS
montelukast 10 mg tablet
10 mg PO HS
Tezspire 210 mg/1.91 mL (110 mg/mL) syringe
0 mg SC MONTHLY
azelastine 137 mcg (0.1 %) [place],Non-Aerosol
1 spray INTRANASAL PRN PRN (Reason: nasal congestion)
hydrochlorothiazide 12.5 mg Tablet
12.5 mg PO DAILY
Ajovy Autoinjector 225 mg/1.5 mL Auto-Injector
225 mg SC QMONTH
Botox
1 dose SC PRN PRN (Reason: migraines)
sumatriptan 20 mg/actuation [place],Non-Aerosol
20 mg INTRANASAL PRN PRN (Reason: migraines)
cetirizine [Zyrtec] 10 mg Tablet
10 mg PO DAILY PRN (Reason: Allergies)
Fioricet
50 mg PO DAILY PRN (Reason: migraines)
ondansetron 4 mg Tablet,Disintegrating
4 mg PO DAILY PRN (Reason: nausea)
melatonin 5 mg Tablet
5 mg PO HS
prednisone 20 mg Tablet
40 mg PO DAILY
Patient Comments:
FOR 5 DAYS STARTING 01/19
Referrals:
Casandra Childs MD [Family Provider] -
Activity Restrictions/Additional Instructions:
You were seen in the emergency department for shortness of breath
You were found to have normal blood work, chest x-ray, viral swabs. We suspect that you have acute bronchitis with a mild asthma exacerbation. Please continue to use nebulized treatments at home and your steroids.
Please follow-up closely with your primary care physician.
Return to the emergency department for any worsening of your symptoms, or any development of chest pain, difficulty breathing, abdominal pain with persistent vomiting and inability to tolerate food or liquid by mouth (concern for dehydration),
weakness, headache or confusion, fever greater than 100.4, or any additional symptoms that are concerning to you.
Thank you for choosing [facility].
Interventions
Interventions:
*Risk Screen - Suicide Last Done: 05/06/24 15:33
*General Assessment Last Done: 05/06/24 15:33
*Neglect/Abuse Screening Last Done: 05/06/24 15:33
ED- Fall Risk Assessment Last Done: 05/06/24 22:49
*Nursing Disposition Last Done: 05/07/24 00:50
ED- Cardiac Assessment Last Done: 05/06/24 22:49
ED- Pulmonary Assessment Last Done: 05/06/24 22:49
Discharge Date and Time
Discharge Date/Time: 05/07/24 00:53
Print Language: CONGOLESE
[2024-05-06 22:36] VITALS: BMI 41.1
[2024-05-06] MEDS: DUONEB 9 ML INH (22:37)
[2024-05-06] MEDS: DECADRON 10 MG IV (22:37)
[2024-05-06 22:45] VITALS: BP 143/96
[2024-05-06 23:00] VITALS: BP 142/90
[2024-05-06 23:20] LABS: D-Dimer < 0.27 ug/mlFEU (0.00-0.50)
[2024-05-06 23:23] LABS: COVID-19 Antigen Negative (Negative)
[2024-05-07] VITALS: BP 145/82
[2024-05-07] MEDS: TYLENOL 650 MG PO (00:15)
== END 2024-05-07 00:53 | disposition home or self-care (01) ==
LOC: EMR 15:21
PROVIDERS: Emergency Medicine; EMERGENCY PHYSICIAN Student in an Organized Health Care Education/Training Program; FAMILY PHYSICIAN Family Medicine
DX: J45.901 Unspecified asthma with (acute) exacerbation (principal); I10 Essential (primary) hypertension; Z11.52 Encounter for screening for COVID-19
CPT/HCPCS: 99285; 96374; 94640; 71046; 80053; 84484; 85025; 85379; 87502; 87811; 93005

== ENCOUNTER 2024-06-29 06:23 | Day surgery (SDC) | payer OTHER, SELFPAY | END 2024-06-29 13:55 | disposition home or self-care (01) | LOC: GI 06:23 | PROVIDERS: ATTENDING PHYSICIAN Internal Medicine Gastroenterology | DX: R13.10 Dysphagia, unspecified (principal); R12 Heartburn; K22.2 Esophageal obstruction; K31.7 Polyp of stomach and duodenum; K44.9 Diaphragmatic hernia without obstruction or gangrene; K31.89 Other diseases of stomach and duodenum | CPT/HCPCS: 43239; 88305; 88342 ==

== ENCOUNTER → 2024-07-05 10:54 | Outpatient (REF) | payer OTHER, SELFPAY | LOC: WDC 10:54 | PROVIDERS: ATTENDING PHYSICIAN Obstetrics & Gynecology; FAMILY PHYSICIAN Family Medicine | DX: Z12.31 Encounter for screening mammogram for malignant neoplasm of breast (principal); Z79.52 Long term (current) use of systemic steroids | CPT/HCPCS: 77063; 77067; 77080 ==

== ENCOUNTER → 2024-07-20 07:09 | Outpatient (REF) | payer OTHER, SELFPAY | LOC: MRI 3T 07:09 | PROVIDERS: ATTENDING PHYSICIAN Internal Medicine Gastroenterology; FAMILY PHYSICIAN Family Medicine | DX: K50.811 Crohn's disease of both small and large intestine with rectal bleeding (principal) | CPT/HCPCS: 72197; 74183; A9575 ==

== ENCOUNTER → 2024-08-16 14:06 | Outpatient (REF) | payer OTHER, SELFPAY | LOC: RAD 14:06 | PROVIDERS: ATTENDING PHYSICIAN Internal Medicine | DX: J45.40 Moderate persistent asthma, uncomplicated (principal); R05.1 Acute cough | CPT/HCPCS: 71046 ==

== ENCOUNTER → 2024-09-13 08:09 | Outpatient (REF) | payer OTHER, SELFPAY | LOC: MRI 3T 08:09 | PROVIDERS: ATTENDING PHYSICIAN Psychiatry & Neurology Neurology; FAMILY PHYSICIAN Family Medicine | DX: M54.2 Cervicalgia (principal); M54.12 Radiculopathy, cervical region; M54.16 Radiculopathy, lumbar region; M54.50 Low back pain, unspecified | CPT/HCPCS: 72141; 72148 ==

== ENCOUNTER → 2024-09-22 17:38 | Outpatient (REF) | payer OTHER, SELFPAY | LOC: MRI 3T 17:38 | PROVIDERS: ATTENDING PHYSICIAN Student in an Organized Health Care Education/Training Program; FAMILY PHYSICIAN Family Medicine | DX: M79.672 Pain in left foot (principal); M25.572 Pain in left ankle and joints of left foot | CPT/HCPCS: 73718; 73721 ==

== ENCOUNTER → 2024-09-29 12:59 | Outpatient (REF) | payer OTHER, SELFPAY | LOC: RCS 12:59 | PROVIDERS: ATTENDING PHYSICIAN Nurse Practitioner Acute Care; FAMILY PHYSICIAN Family Medicine | DX: I10 Essential (primary) hypertension (principal); Z13.6 Encounter for screening for cardiovascular disorders; I34.0 Nonrheumatic mitral (valve) insufficiency | CPT/HCPCS: 93306 ==

== ENCOUNTER → 2024-10-05 06:48 | Outpatient (REF) | payer OTHER, SELFPAY | LOC: PAVMRI 06:48 | PROVIDERS: ATTENDING PHYSICIAN Student in an Organized Health Care Education/Training Program; FAMILY PHYSICIAN Family Medicine | DX: M79.671 Pain in right foot (principal); M25.571 Pain in right ankle and joints of right foot | CPT/HCPCS: 73718; 73721 ==

== ENCOUNTER 2024-10-06 15:16 | Outpatient (RCR) | payer OTHER, SELFPAY | END 2024-10-06 23:59 | disposition home or self-care (01) | LOC: RPT 15:16 | PROVIDERS: ATTENDING PHYSICIAN Internal Medicine; FAMILY PHYSICIAN Family Medicine | DX: I89.0 Lymphedema, not elsewhere classified (principal); Z73.6 Limitation of activities due to disability; M79.605 Pain in left leg; M79.604 Pain in right leg; R26.89 Other abnormalities of gait and mobility; M54.2 Cervicalgia; M19.90 Unspecified osteoarthritis, unspecified site | CPT/HCPCS: 97110; 97140; 97163; 97530 ==

== ENCOUNTER → 2024-10-07 09:39 | Outpatient (REF) | payer OTHER, SELFPAY | LOC: RAD 09:39 | PROVIDERS: ATTENDING PHYSICIAN Nurse Practitioner Family; FAMILY PHYSICIAN Family Medicine | DX: E04.1 Nontoxic single thyroid nodule (principal); J45.50 Severe persistent asthma, uncomplicated; R05.9 Cough, unspecified | CPT/HCPCS: 71046; 76536 ==

== ENCOUNTER 2024-11-03 14:42 | Outpatient (RCR) | payer OTHER, SELFPAY | END 2024-11-03 23:59 | disposition home or self-care (01) | LOC: RPT 14:42 | PROVIDERS: ATTENDING PHYSICIAN Internal Medicine Rheumatology; FAMILY PHYSICIAN Family Medicine | DX: I89.0 Lymphedema, not elsewhere classified (principal); Z73.6 Limitation of activities due to disability; M79.605 Pain in left leg; M79.604 Pain in right leg; R26.89 Other abnormalities of gait and mobility; M54.2 Cervicalgia; M19.90 Unspecified osteoarthritis, unspecified site | CPT/HCPCS: 97110; 97140; 97530 ==

== ENCOUNTER → 2024-11-16 12:06 | Outpatient (REF) | payer OTHER, SELFPAY | LOC: RAD 12:06 | PROVIDERS: ATTENDING PHYSICIAN Internal Medicine; FAMILY PHYSICIAN Family Medicine | DX: J45.50 Severe persistent asthma, uncomplicated (principal); J30.9 Allergic rhinitis, unspecified; M35.00 Sjogren syndrome, unspecified; R05.1 Acute cough | CPT/HCPCS: 71046 ==

== ENCOUNTER 2024-12-02 10:02 | Outpatient (RCR) | payer OTHER, SELFPAY | END 2024-12-02 23:59 | disposition home or self-care (01) | LOC: RPT 10:02 | PROVIDERS: ATTENDING PHYSICIAN Internal Medicine Rheumatology; FAMILY PHYSICIAN Family Medicine | DX: I89.0 Lymphedema, not elsewhere classified (principal); Z73.6 Limitation of activities due to disability; M79.605 Pain in left leg; M79.604 Pain in right leg; R26.89 Other abnormalities of gait and mobility; M54.2 Cervicalgia; M19.90 Unspecified osteoarthritis, unspecified site | CPT/HCPCS: 97110; 97140; 97530 ==

== ENCOUNTER → 2024-12-02 11:21 | Outpatient (REF) | payer OTHER, SELFPAY | LOC: RAD 11:21 | PROVIDERS: ATTENDING PHYSICIAN Internal Medicine Rheumatology; FAMILY PHYSICIAN Nurse Practitioner Adult Health | DX: M25.551 Pain in right hip (principal); M25.561 Pain in right knee | CPT/HCPCS: 73502; 73564 ==

== ENCOUNTER → 2024-12-08 08:52 | Outpatient (REF) | payer OTHER, SELFPAY | LOC: MRI 08:52 | PROVIDERS: ATTENDING PHYSICIAN Nurse Practitioner Acute Care; FAMILY PHYSICIAN Family Medicine | DX: Z13.6 Encounter for screening for cardiovascular disorders (principal); I10 Essential (primary) hypertension; I34.0 Nonrheumatic mitral (valve) insufficiency; G60.2 Neuropathy in association with hereditary ataxia | CPT/HCPCS: 75561; 75565; A9585 ==

== ENCOUNTER → 2024-12-27 14:51 | Outpatient (REF) | payer OTHER, SELFPAY | LOC: RAD 14:51 | PROVIDERS: ATTENDING PHYSICIAN Registered Nurse | DX: J45.51 Severe persistent asthma with (acute) exacerbation (principal) | CPT/HCPCS: 71046 ==